=== PATIENT | female | born 1965 | race Hispanic/Latino ===

== ENCOUNTER 2016-12-08 22:50 | Inpatient (IN) | payer MEDICAID ==
[2016-12-08 22:50] VITALS: PULSE 100; BMI 23.8
--- NOTE | 2016-12-08 23:56 | ED PDOC ---
HPI: SOB/CHF/COPD Time Seen by Provider: 12/08/16 23:15 Chief Complaint (Nursing): Back Pain Chief Complaint (Provider): SOB History Per: Patient History/Exam Limitations: no limitations Onset/Duration Of Symptoms: Days Associated Symptoms: Chest Pain, Heart Racing. denies: Fever, Chills, Sweating , Bloody Cough, Productive Cough, Leg/Calf Pain, Ankle/Leg Swelling, Dizziness, Light-headedness, Anxiety, Tingling In Hands Or Face, Musle Spasms In Hands Or Feet Additional Complaint(s): 51yo F in ED with hx of CHF,HT, DVT, bipoloar and is homeless in ED with acute upper back pain noted today while supine and idle-states it causes some difficulty with breathing that's worse than her SOB due to her CHF. admits to nausea without vomiting-now subsided. denies: cough, abd pain, lower back pain, dysuria. - Risk Factors PE Risk Factors: Pos: CHF Past Medical History Reviewed: Historical Data, Nursing Documentation, Vital Signs Vital Signs: Last Vital Signs Temp 96.7 F L 12/08/16 22:55 Pulse 137 H 12/08/16 22:55 Resp 20 12/08/16 22:55 BP 134/81 12/09/16 01:55 Pulse Ox 98 12/09/16 02:18 - Medical History PMH: Anxiety, Bipolar Disorder, CHF, COPD, Depression, Deep Vein Thrombosis, HTN , Hypercholesterolemia, Hyperlipidemia, Hypothyroidism, Migraine, Peripheral Edema Denies: Crohn's Disease, Diabetes, Diverticulitis, Hepatitis, HIV, Chronic Kidney Disease, Seizures, Sexually Transmitted Disease - Surgical History Surgical History: Denies: Appendectomy, Cholecystectomy, Coronary Stent, Pacemaker - Family History Family History: States: Unknown Family Hx - Home Medications Home Medications: Ambulatory Orders Medication Instructions Recorded Digoxin [Lanoxin] 0.125 mg PO 1400 tab 09/07/16 Apixaban [Eliquis] 5 mg PO BID #30 tab 09/30/16 Levothyroxine [Synthroid] 125 mcg PO ACB #30 tab 09/30/16 Losartan [Cozaar] 12.5 mg PO DAILY #30 tab 10/21/16 Potassium Chloride [K-Dur 20 mEq 20 meq PO DAILY #0 tab 10/21/16 ER Tab] Furosemide [Lasix] 80 mg PO DAILY 11/30/16 MetFORMIN [glucoPHAGE] 500 mg PO BID 11/30/16 ALPRAZolam [Xanax] 0.25 mg PO DAILY PRN #30 tab 12/06/16 Acetaminophen/Butalbital/Caf 1 tab PO BID PRN #60 tab 12/06/16 [Fioricet] Apixaban [Eliquis] 5 mg PO BID tab 12/06/16 Atenolol [Tenormin] 12.5 mg PO BID tab 12/06/16 Ciprofloxacin/Dexamethasone 1 drop AU BID bottle 12/06/16 [Ciprodex Otic] Ciprofloxacin/Dexamethasone 75 drop AD BID #150 bottle 12/06/16 [Ciprodex Otic] Digoxin [Lanoxin] 0.125 mg PO 1400 tab 12/06/16 Furosemide [Lasix] 40 mg IVP DAILY vial 12/06/16 Insulin Detemir [Levemir] 10 unit SC BID unit 12/06/16 Levothyroxine [Synthroid] 125 mcg PO ACB tab 12/06/16 Losartan [Cozaar] 12.5 mg PO DAILY tab 12/06/16 Ondansetron [Zofran Inj] 4 mg IVP Q4H PRN vial 12/06/16 Potassium Chloride [K-Dur 20 mEq 20 meq PO DAILY tab 12/06/16 ER Tab] Repaglinide [Prandin] 2 mg PO AC tab 12/06/16 guaiFENesin/Dextromethorphan 5 ml PO Q6H PRN 12/06/16 [Robitussin DM] metFORMIN [glucOPHAGE] 500 mg PO BID tab 12/06/16 risperiDONE [RisperDAL Oral Soln] 1 mg PO HS ml 12/06/16 risperiDONE [RisperDAL] 1 mg PO DAILY #30 ml 12/06/16 - Allergies Allergies/Adverse Reactions: Allergies Allergy/AdvReac Type Severity Reaction Status Date / Time No Known Allergies Allergy Verified 11/30/16 16:29 Curb-65 Severity Score - CURB-65 Severity Score Confusion: No Bun >19mg/dl (>7mmol/L): No Respiratory Rate greater than/equal to 30: No Systolic BP <90 or Diastolic BP less than/equal 60mmHg: No Age >64: No Curb-65 Score: 0 Percentage 30-day mortality: 0.6% Wells Criteria for PE - Wells Criteria for Pulmonary Embolism Clinical Signs and Symptoms of DVT: No P.E is #1 Diagnosis, or Equally Likely: Yes Heart Rate >100: Yes Immobilization at least 3 days;Surgery previous 4 weeks: No Previous, objectively diagnosed PE or DVT: Yes Hemoptysis: No Malignancy w/treatment within 6 months, or palliative: No Total Score: 4.0 Review of Systems ROS Statement: Except As Marked, All Systems Reviewed And Found Negative Constitutional: Negative for: Fever Respiratory: Positive for: Cough Gastrointestinal: Positive for: Nausea. Negative for: Vomiting Physical Exam - Reviewed Nursing Documentation Reviewed: Yes Vital Signs Reviewed: Yes - Physical Exam Appears: Positive for: Non-toxic, No Acute Distress, Uncomfortable Head Exam: Positive for: ATRAUMATIC, NORMAL INSPECTION, NORMOCEPHALIC Skin: Positive for: Normal Color, Warm, DRY ENT: Positive for: Normal ENT Inspection Cardiovascular/Chest: Positive for: Regular Rate, Rhythm Respiratory: Positive for: CNT, Normal Breath Sounds Gastrointestinal/Abdominal: Positive for: Normal Exam Back: Positive for: Normal Inspection. Negative for: L CVA Tenderness, R CVA Tenderness Neurologic/Psych: Positive for: Alert, Oriented - Laboratory Results Result Diagrams: 12/09/16 00:05 12/09/16 00:05 - ECG O2 Sat by Pulse Oximetry: 98 - Progress ED Course And Treament: case discussed with Md reyes will r/o PE with CTA and labs and due to hx of CHF-will give lasix 60mg IV and re-eval. pt placed on O2- SAt %: 90%-93%. CMP:K+ elevated and BS elevated(>400), BNP>4000 increased from last ED visit in October.- pt given fluids IV 125ccper hour 500cc total and insulin 6mg and was given insulin 60mg IV. VBG/ABG ordered-however pt refuses to allow for VBG or ABG. pt provided with the benefits of ABG/VBG-however continues to refuse. IMPRESSION: Pulmonary arteries: There is high suspicion for acute pulmonary embolus to the right lower lobe, best appreciated series 3 image 64, coronal series 601 image 74 and adjacent, noting involvement of multiple segments. Relatively more central involvement of the right lower lobe pulmonary artery is seen series 3 image 54, coronal image 63, and adjacent noting that some portion of this may be chronic rather than acute embolus. Pulmonary emboli as above, noting additionally bilateral pleural effusions and consolidation on the right which may reflect an unrelated process including congestive failure and/ or pneumonia. Large bilateral pleural effusions. Findings in keeping with congestive failure, cannot exclude pneumonia right middle or right lower lobe. Cardiomegaly with no specific findings of acute right heart strain. Very limited evaluation of the abdomen. If there is suspicion for acute abdominal pathology please obtain dedicated CT, the present study is not adequate to exclude free air or other acute pathology in the abdomen. Pt will be admitted for Pulmonary Embolus under [facility]-medical service oncall. Medical Decision Making Medical Decision Making: pt will be admitted to telemetry [facility] for PE, DM. pt stable for admission. Disposition - Clinical Impression Clinical Impression: Pulmonary embolism - Patient ED Disposition Is Patient to be Admitted: Yes - Disposition Disposition Time: 02:17 Condition: STABLE - Pt Status Changed To: Hospital Disposition Of: Inpatient - Admit Certification Admit to Inpatient:: After my assessment, the patient will require hospitalization for at least two midnights. This is because of the severity of symptoms shown, intensity of services needed, and/or the medical risk in this patient being treated as an outpatient.
[2016-12-09 00:11] LABS: BASO # 0.2 K/uL (0.0-0.2); BASO % 1.1 % (0.0-2.0); EOS # 0.1 K/uL (0.0-0.7); EOS % 0.6 % (0.0-4.0); HEMATOCRIT 41.1 % (34.0-47.0); LYMPH # 3.5 K/uL (1.0-4.3); LYMPH % 24.5 % (20.0-40.0); MEAN CELL VOLUME 77.5 fl (81.0-99.0); MEAN CORPUSCULAR HEMOGLOBIN 24.9 pg (27.0-31.0); MEAN CORPUSCULAR HGB CONC 32.1 g/dL (33.0-37.0); MONO # 1.2 K/uL (0.0-0.8); MONO % 8.4 % (0.0-10.0); NEUT # 9.3 K/uL (1.8-7.0); NEUT % 65.4 % (50.0-75.0); RED CELL DISTRIBUTION WIDTH 20.5 % (11.5-14.5); WHITE BLOOD COUNT 14.2 K/uL (4.8-10.8)
[2016-12-09 00:25] LABS: ALB/GLOB RATIO 1.1 (1.0-2.1); ALKALINE PHOSPHATASE 155 U/L (38-126); ALT/SGPT 99 U/L (9-52); AST/SGOT 56 U/L (14-36); BLOOD UREA NITROGEN 18 mg/dl (7-17); CALCIUM 9.8 mg/dL (8.4-10.2); CARBON DIOXIDE 23 mmol/L (22-30); CHLORIDE 96 mmol/L (98-107); GFR AFRICAN-AMERICAN > 60; POTASSIUM 5.5 MMOL/L (3.6-5.0); SODIUM 131 mmol/l (132-148); TOTAL PROTEIN 7.3 G/DL (6.3-8.2)
[2016-12-09] MEDS ORDERED: Sodium Chloride 0.9% 50 ML IV ONE (00:30)
[2016-12-09] MEDS ORDERED: Iodixanol 320 MG/ML 100 ML BOTTLE IV ONE (00:30)
[2016-12-09 00:43] LABS: GLUCOSE,RANDOM 421 mg/dL (65-105)
[2016-12-09] MEDS ORDERED: Insulin Regular 100 units/ml IV STA (00:45)
[2016-12-09] MEDS ORDERED: Sodium Chloride 0.9% 1,000 ML IV STA (00:45)
[2016-12-09] MEDS ORDERED: Insulin Regular 100 units/ml ONE (01:32)
[2016-12-09] MEDS ORDERED: Sodium Chloride 0.9% 500 ML IV STA (01:49)
[2016-12-09] MEDS ORDERED: Sodium Chloride 0.9% 1,000 ML IV SCH (02:00)
[2016-12-09 02:23] LABS: RBC URINE 1 /hpf (0-3); URINE BILIRUBIN NEGATIVE (NEGATIVE); URINE BLOOD NEGATIVE (NEGATIVE); URINE COLOR STRAW (YELLOW); URINE GLUCOSE (UA) >=500 mg/dL (Normal); URINE KETONE NEGATIVE (NEGATIVE); URINE LEUKOCYTE ESTERASE NEG Leu/uL (Negative); URINE PROTEIN NEGATIVE (NEGATIVE); URINE UROBILINOGEN 0.2-1.0 mg/dL (0.2-1.0); WBC URINE 1 /hpf (0-5)
[2016-12-09] MEDS: Insulin Regular 100 units/ml SC SCH ×4 (05:57→22:30)
[2016-12-09] MEDS: Potassium Chloride 20 mEq ER Tab PO SCH ×2 (08:31→16:54)
[2016-12-09 08:42] LABS: BASO # 0.1 K/uL (0.0-0.2); BASO % 0.9 % (0.0-2.0); EOS # 0.1 K/uL (0.0-0.7); EOS % 0.8 % (0.0-4.0); HEMATOCRIT 39.6 % (34.0-47.0); LYMPH # 4.1 K/uL (1.0-4.3); LYMPH % 30.1 % (20.0-40.0); MEAN CELL VOLUME 76.5 fl (81.0-99.0); MEAN CORPUSCULAR HEMOGLOBIN 25.2 pg (27.0-31.0); MEAN CORPUSCULAR HGB CONC 32.9 g/dL (33.0-37.0); MEAN PLATELET VOLUME 8.8 fl (7.2-11.7); MONO # 1.2 K/uL (0.0-0.8); NEUT # 8.1 K/uL (1.8-7.0); NEUT % 59.2 % (50.0-75.0); NRBC % 0.1 % (0.0-0.0); RED CELL DISTRIBUTION WIDTH 20.3 % (11.5-14.5); WHITE BLOOD COUNT 13.7 K/uL (4.8-10.8)
[2016-12-09 08:46] LABS: ALKALINE PHOSPHATASE 133 U/L (38-126); ALT/SGPT 87 U/L (9-52); AST/SGOT 44 U/L (14-36); BILIRUBIN,TOTAL 0.8 mg/dl (0.2-1.3); BLOOD UREA NITROGEN 15 mg/dl (7-17); CALCIUM 9.2 mg/dL (8.4-10.2); CARBON DIOXIDE 25 mmol/L (22-30); CHLORIDE 99 mmol/L (98-107); GFR AFRICAN-AMERICAN > 60; GLUCOSE,RANDOM 281 mg/dL (65-105); POTASSIUM 4.2 MMOL/L (3.6-5.0); SODIUM 134 mmol/l (132-148); TOTAL PROTEIN 6.5 G/DL (6.3-8.2)
[2016-12-09] MEDS: Enoxaparin 80 mg Syringe SC SCH (09:55)
--- NOTE | 2016-12-09 10:01 | CARD ---
APPROVED REPORT EKG Measurement Heart [id number] <Conclusion> Sinus tachycardia Left bundle branch block Abnormal ECG
[2016-12-09] MEDS ORDERED: Metoprolol Succinate 50 mg XL Tab PO SCH (10:45)
[2016-12-09] MEDS ORDERED: Levalbuterol 0.63 MG/3 ML Inhal Soln UD IH ONE (10:48)
[2016-12-09] MEDS ORDERED: Levalbuterol 0.63 MG/3 ML Inhal Soln UD IH SCH (11:00)
--- NOTE | 2016-12-09 12:23 | CT ---
PROCEDURE: CT Chest with contrast (Pulmonary Angiogram) HISTORY: SOB COMPARISON: None available. TECHNIQUE: Axial computed tomography images were obtained of the chest in the pulmonary arterial phase of enhancement. Coronal and sagittal reformatted images were created and reviewed. Exam is limited by motion artifact and areas of atelectasis and infiltrate. Intravenous contrast dose: 99 cc visipaque 320 Radiation dose: Total exam DLP = 363 mGy-cm. This CT exam was performed using one or more of the following dose reduction techniques: Automated exposure control, adjustment of the mA and/or kV according to patient size, and/or use of iterative reconstruction technique. FINDINGS: PULMONARY ARTERIES: There appear to be a few small areas of filling defect in the right lower lobe subsegmental arteries posteriorly at the right lung base. These are probably consistent with small pulmonary emboli. Motion artifact however limits evaluation. There may also be a subtle area of low density filling defect in the proximal right lower lobe pulmonary artery although a portion of this may be related to artifact. This is seen on series 3, image 54. No other filling defect is identified. Main pulmonary outflow track shows no evidence of filling defect. No appreciable filling defect is seen in the right atrium right ventricle. AORTA: No appreciable filling defect. Mild atherosclerotic change and tortuosity. LUNGS: Large right pleural effusion and left pleural effusion are noted with areas of moderate compressive atelectasis at the lung bases. Additional infiltrate at the right lung base could not be excluded. There is also moderate right middle lobe infiltrate and/or atelectasis appreciated. Smaller amount of compressive atelectasis is seen at the left lung base and lingula. No defect within the bronchi are noted to suggest mucous plugging and air bronchograms are seen within the areas of infiltrate and/or atelectasis. PLEURAL SPACES: Moderate effusions as described above. No pneumothorax. HEART: Heart is slightly enlarged. . Vasculature may be mildly congested. LYMPH NODES: Small scattered nonspecific right paratracheal and prevascular lymph nodes are noted. No large hilar lymphadenopathy is clearly seen. Small subcarinal lymph nodes are also identified. Thoracic inlet is unremarkable. No supraclavicular or axillary lymphadenopathy is seen. BONES, CHEST WALL: No fractures. Degenerative changes are seen in the spine. OTHER FINDINGS: Images of the upper abdomen are limited. IMPRESSION: There appear to be small filling defects within the subsegmental right lower lobe pulmonary arteries although a portion of this may be related to artifact. An additional area possible filling defect is seen in the proximal right lower lobe pulmonary artery, although this may be related to volume averaging. Large effusions. Moderate right middle lobe and right lower lobe infiltrates and smaller areas of probable compressive atelectasis in the left lower lobe. Underlying pneumonia is could not be excluded in the right lung. Mild vascular congestion. This agrees with preliminary report provided by the on-call radiologist.
[2016-12-09] MEDS: Levalbuterol 0.63 MG/3 ML Inhal Soln UD IH SCH ×3 (15:46→23:50)
--- NOTE | 2016-12-09 16:18 | US ---
PROCEDURE: Bilateral lower extremity venous duplex Doppler. HISTORY: r/o DVT COMPARISON: None available. TECHNIQUE: Bilateral common femoral, superficial femoral, popliteal and posterior tibial veins were evaluated. Flow was assessed with color Doppler, compressibility, assessment of phasic flow and augmentation response. FINDINGS: COMMON FEMORAL VEIN: Right CFV: Unremarkable. Left CFV: Unremarkable. SUPERFICIAL FEMORAL VEIN: Right SFV: Unremarkable. Left SFV: Unremarkable. POPLITEAL VEIN: Right Popliteal: Unremarkable. Left Popliteal: Unremarkable. POSTERIOR TIBIAL VEIN: Right PTV: Unremarkable. Left PTV: Left posterior tibial vein was not adequately evaluated due to the patient being unable to tolerate the imaging. OTHER FINDINGS: None. IMPRESSION: No evidence of deep vein thrombosis of the visualized vessels. Left calf could not be evaluated.
--- NOTE | 2016-12-09 16:34 | CP.PCM.CON ---
History of Present Illness - History of Present Illness History of Present Illness: Pulmonary consult for a 51 y/o F, admitted to [facility] on 12/08/16 for SOB that begins 2 days [employer] with no relief, associated to cough, non productive, non bloody, Chest pain with rapid HR of 137, swelling b/l L/E, upper back pain described as sharp, moderate to severe intensity 8:10, and also having nausea and vomiting. Aggravated factor: Back pain causing increased SOB. Pt denied: Fever, chills, diarrhea, sweating, lightheadedness, numbness, tingling in hands and face, headache, urinary symptoms, sick contact, recent travel. PMHx: DVT U/E, CHF, HTN, R subclavian DVT , PPM, Coronary stent , Hypercolesterolemia, COPD , Hypothyroidism, Diverticulitis, PNA, Anxiety, Depression, Anxiety, Bipolar Disorder, Migraine , Lymphoma EKG shows: Sinus tachycardia, L bundle branch block. Doppler L/E= No DVT , Pro BNP 3840 CT Chest showed: Possible RLL emboli. Large effusions at Lung bases, R>L. RML and RLL Infiltrates- Atelectasis LLL. Review of Systems - Constitutional Constitutional: Other (negative) - EENT Eyes: Other (negative) Ears: Other (negative) Nose/Mouth/Throat: Other (negative) - Cardiovascular Cardiovascular: Chest Pain, Dyspnea, Leg Edema, Rapid Heart Rate - Respiratory Respiratory: Cough, Dyspnea - Gastrointestinal Gastrointestinal: Nausea, Vomiting - Genitourinary Genitourinary: Other (negative) - Musculoskeletal Musculoskeletal: Back Pain - Integumentary Integumentary: Other (negative) - Neurological Neurological: Other (negative) - Psychiatric Psychiatric: Other (negative) - Endocrine Endocrine: Other (negative) - Hematologic/Lymphatic Hematologic: Other (negative) Past Patient History - Infectious Disease Hx of Infectious Diseases: None - Tetanus Immunizations Tetanus Immunization: Unknown - Past Medical History & Family History Past Medical History?: Yes Pertinent Family History: Unknown - Past Social History Smoking Status: Former Smoker Alcohol: None Drugs: Denies Home Situation {Lives}: With Family - CARDIAC Hx Cardiac Disorders: Yes Hx Congestive Heart Failure: Yes Hx Hypercholesterolemia: Yes Hx Hypertension: Yes - PULMONARY Hx Respiratory Disorders: Yes Hx Chronic Obstructive Pulmonary Disease (COPD): Yes Hx Pneumonia: Yes Hx Pulmonary Embolism: Yes - NEUROLOGICAL Hx Migraine: Yes Hx Seizures: No - HEENT Hx HEENT Problems: No - RENAL Hx Chronic Kidney Disease: No - ENDOCRINE/METABOLIC Hx Endocrine Disorders: Yes Hx Diabetes Mellitus Type 2: Yes Hx Hypothyroidism: Yes - HEMATOLOGICAL/ONCOLOGICAL Hx Human Immunodeficiency Virus (HIV): No - INTEGUMENTARY Hx Dermatological Problems: No Hx Basil Cell: No Hx Eczema: No Hx Melanoma: No Hx Psoriasis: No Hx Squamous Cell: No - MUSCULOSKELETAL/RHEUMATOLOGICAL Hx Falls: No - GASTROINTESTINAL Hx Diverticulitis: Yes - GENITOURINARY/GYNECOLOGICAL Hx Sexually Transmitted Disorders: No - PSYCHIATRIC Hx Psychophysiologic Disorder: Yes Hx Anxiety: Yes Hx Bipolar Disorder: Yes - SURGICAL HISTORY Hx Appendectomy: No Hx Cholecystectomy: No Hx Coronary Stent: No - ANESTHESIA Hx Anesthesia Reactions: No Hx Malignant Hyperthermia: No Meds Allergies/Adverse Reactions: Allergies Allergy/AdvReac Type Severity Reaction Status Date / Time No Known Allergies Allergy Verified 11/30/16 16:29 - Medications Medications: Current Medications Aspirin (Aspirin Chewable) 81 mg PO DAILY [facility] Last Admin: 12/09/16 09:54 Dose: 81 mg Enalapril Maleate (Vasotec) 2.5 mg PO DAILY [facility] Enoxaparin Sodium (Lovenox) 80 mg SC DAILY [facility] PRN Reason: Protocol Last Admin: 12/09/16 09:55 Dose: 80 mg Furosemide (Lasix) 40 mg IV Q12 [facility] Last Admin: 12/09/16 09:54 Dose: 40 mg Insulin Human Regular (Humulin R) 0 units SC Q6 [facility] PRN Reason: Protocol Last Admin: 12/09/16 11:00 Dose: 10 u Levalbuterol HCl (Xopenex) 0.63 mg IH RQ8 [facility] Last Admin: 12/09/16 16:10 Dose: 0.63 mg Metoprolol Tartrate (Lopressor) 25 mg PO Q12 [facility] Last Admin: 12/09/16 11:19 Dose: 25 mg Ondansetron HCl (Zofran Inj) 4 mg IVP Q4 PRN PRN Reason: Nausea/Vomiting Potassium Chloride (K-Dur 20 Meq Er Tab) 20 meq PO BID [facility] Last Admin: 12/09/16 08:31 Dose: Not Given Spironolactone (Aldactone) 12.5 mg PO DAILY [facility] Physical Exam - Constitutional Appears: No Acute Distress - Head Exam Head Exam: NORMAL INSPECTION - Eye Exam Eye Exam: PERRL - ENT Exam ENT Exam: Normal Oropharynx - Neck Exam Neck exam: Positive for: Normal Inspection - Respiratory Exam Respiratory Exam: Decreased Breath Sounds (at bases R>L) Additional comments: Crackles R base. - Cardiovascular Exam Cardiovascular Exam: Tachycardia - GI/Abdominal Exam GI & Abdominal Exam: Normal Bowel Sounds, Soft - Extremities Exam Additional comments: Edema L/E - Back Exam Back exam: NORMAL INSPECTION - Neurological Exam Neurological exam: Alert, Oriented x3 Additional comments: No motor sensory deficit. - Psychiatric Exam Psychiatric exam: Normal Mood - Skin Skin Exam: Warm Results - Vital Signs Recent Vital Signs: Last Vital Signs Temp 98.3 F 12/09/16 11:54 Pulse 122 H 12/09/16 11:54 Resp 18 12/09/16 11:54 BP 107/71 12/09/16 11:54 Pulse Ox 94 L 12/09/16 11:54 reviewed Mario - Labs Result Diagrams: 12/11/16 08:00 12/11/16 08:00 Labs: Laboratory Results - last 24 hr 12/09/16 12/09/16 12/09/16 05:33 08:00 08:18 WBC 13.7 H RBC 5.18 Hgb 13.0 Hct 39.6 MCV 76.5 L MCH 25.2 L MCHC 32.9 L RDW 20.3 H Plt Count 468 H MPV 8.8 Neut % (Auto) 59.2 Lymph % (Auto) 30.1 [place] % (Auto) 9.0 Eos % (Auto) 0.8 Baso % (Auto) 0.9 Neut # 8.1 H Lymph # 4.1 [place] # 1.2 H Eos # 0.1 Baso # 0.1 Sodium 134 Potassium 4.2 Chloride 99 Carbon Dioxide 25 Anion Gap 15 BUN 15 Creatinine 0.4 L Est GFR ( Amer) > 60 Est GFR (Non-Af Amer) > 60 POC Glucose (mg/dL) 351 H Random Glucose 281 H Calcium 9.2 Total Bilirubin 0.8 AST 44 H D ALT 87 H Alkaline Phosphatase 133 H NT-Pro-B Natriuret Pep 3840 H Total Protein 6.5 Albumin 3.3 L Globulin 3.2 Albumin/Globulin Ratio 1.0 12/09/16 12/09/16 11:07 16:25 WBC RBC Hgb Hct MCV MCH MCHC RDW Plt Count MPV Neut % (Auto) Lymph % (Auto) [place] % (Auto) Eos % (Auto) Baso % (Auto) Neut # Lymph # [place] # Eos # Baso # Sodium Potassium Chloride Carbon Dioxide Anion Gap BUN Creatinine Est GFR ( Amer) Est GFR (Non-Af Amer) POC Glucose (mg/dL) 389 H 433 H* Random Glucose Calcium Total Bilirubin AST ALT Alkaline Phosphatase NT-Pro-B Natriuret Pep Total Protein Albumin Globulin Albumin/Globulin Ratio reviewed J.P. - EKG Data EKG comments: reviewed J.P. - Imaging and Cardiology CT scan - chest Status: Report reviewed by me (Maroi) Venous US Status: Report reviewed by me (Mario) Assessment & Plan (1) Respiratory insufficiency Status: Acute Priority: High (2) Bilateral pleural effusion Status: Acute Priority: High Comment: 2nd to CHF (3) Acute exacerbation of congestive heart failure Status: Acute Priority: High (4) Atelectasis of both lungs Status: Acute Priority: High - Assessment and Plan (Free Text) Plan: Continue Lovenox, can not r/o PE. Treatment of CHF by Cardiology, repeat CTA Chest when cardiac failure improved - Date & Time Date: 12/09/16 Time: 13:30
--- NOTE | 2016-12-09 20:00 | CON ---
DATE: 12/09/2016 REASON FOR CONSULTATION: Exacerbation of congestive heart failure. 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 Th e patient presents because of shortness of breath and leg swelling. The patient denies any retroster nal chest pain. The patient underwent cardiac catheterization in 07/2015, and was found to have occl usive coronary artery disease. A venous ultrasound in August of this year revealed occlusive thromb osis of the right brachial vein of indeterminate age. An echocardiographic study performed in [facility] of last year revealed an ejection fraction of 30% with moderate pulmonary hypertension. The patie nt denies any fever or chills. REVIEW OF SYSTEMS: The patient now experiencing nausea and vomiting. MEDICATIONS: Aspirin 81 mg once a day, K-Dur 20 mEq p.o. twice a day, Lasix 40 mg intravenous twice a day, Lopressor 25 mg twice a day, Lovenox 80 mg subcutaneously daily, Xopenex inhaler q.8 hours. PHYSICAL EXAMINATION: GENERAL: The patient is a middle-aged female who does not appear to be in acute distress. VITAL SIGNS: Blood pressure 107/71, heart rate 122, temperature 98.3, respiration 18. HEENT: Normocephalic. NECK: Jugular venous distention is noted. CHEST: Absent breath sounds over both bases. HEART: S1, S2 regular. ABDOMEN: Soft. EXTREMITIES: Has 2-3+ pitting edema. LABORATORY DATA: CBC of 15.7, hemoglobin , hematocrit 39.6, platelet count 468,000. SMA-7 toda y is within normal limits except for glucose 281 and creatinine 0.4. ProBNP is 4600. One set of tro ponin is negative. EKG revealed sinus tachycardia at a rate of 134, left bundle branch block. Chest CT angio impression: Appears to be small filling defect within the subsegmental right lower lo be arteries, although a portion of this may be related to artifact. An additional area of possible f illing defect is seen in the proximal right lower lobe pulmonary artery, although this may be related to volume averaging. Large effusion, moderate right middle lobe and right lower lobe infiltrate and a small area of probable compression atelectasis in the left upper lobe. Underlying pneumonia could not be excluded in the right lung. Mild vascular congestion. ASSESSMENT: 1. Exacerbation of congestive heart failure. 2. Questionable pulmonary embolus. 3. History of neck lymphoma treated 8 years ago. 4. Uncontrolled diabetes mellitus. 5. History of right subclavian occlusive deep venous thrombosis diagnosed in August of this year at [facility]. RECOMMENDATIONS: Continue aspirin 81 mg once a day, intravenous Lasix 40 mg twice a day, Lopressor 2 5 mg twice a day, change Lovenox to a therapeutic regimen. For now, obtain venous Doppler of the low er extremities and start enalapril at 2.5 mg once a day and Aldactone at 12.5 mg daily. Vishal Zavala MD cc: [id number] TT: 12/09/2016 20:00:01 Confirmation # [id number] Dictation # [id number] dn
--- NOTE | 2016-12-09 20:57 | CP.PCM.HP ---
History of Present Illness - History of Present Illness History of Present Illness: This is a 51 yo female admitted through the ER for increasing SOB and palpitations for the past two days. 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 She has a hx of COPD ,CHF DM 2 and DVT of upper extremity and currently on Eliquis [address] scan in Er showed a possible Pulm embolism, CHF and possible infiltrate. She was noted to have a WBC of 14 proBNP of 4000 and Blood sugar of more than 420. She was started on lovenox, lasix and neb tx and Insulin coverage. Present on Admission - Present on Admission Any Indicators Present on Admission: No History of DVT/PE: Yes History of Uncontrolled Diabetes: Yes Urinary Catheter: No Decubitus Ulcer Present: No Review of Systems - Review of Systems Systems not reviewed;Unavailable: Respiratory Distress - Cardiovascular Cardiovascular: Chest Pain, Dyspnea, Palpitations - Respiratory Respiratory: Dyspnea Past Patient History - Infectious Disease Hx of Infectious Diseases: None - Tetanus Immunizations Tetanus Immunization: Unknown - Past Medical History & Family History Past Medical History?: Yes - Past Social History Smoking Status: Former Smoker - CARDIAC Hx Cardiac Disorders: Yes Hx Congestive Heart Failure: Yes Hx Hypercholesterolemia: Yes Hx Hypertension: Yes - PULMONARY Hx Respiratory Disorders: Yes Hx Chronic Obstructive Pulmonary Disease (COPD): Yes Hx Pneumonia: Yes Hx Pulmonary Embolism: Yes - NEUROLOGICAL Hx Migraine: Yes Hx Seizures: No - HEENT Hx HEENT Problems: No - RENAL Hx Chronic Kidney Disease: No - ENDOCRINE/METABOLIC Hx Endocrine Disorders: Yes Hx Diabetes Mellitus Type 2: Yes Hx Hypothyroidism: Yes - HEMATOLOGICAL/ONCOLOGICAL Hx Human Immunodeficiency Virus (HIV): No - INTEGUMENTARY Hx Dermatological Problems: No Hx Basil Cell: No Hx Eczema: No Hx Melanoma: No Hx Psoriasis: No Hx Squamous Cell: No - MUSCULOSKELETAL/RHEUMATOLOGICAL Hx Falls: No - GASTROINTESTINAL Hx Diverticulitis: Yes - GENITOURINARY/GYNECOLOGICAL Hx Sexually Transmitted Disorders: No - PSYCHIATRIC Hx Psychophysiologic Disorder: Yes Hx Anxiety: Yes Hx Bipolar Disorder: Yes - SURGICAL HISTORY Hx Appendectomy: No Hx Cholecystectomy: No Hx Coronary Stent: No - ANESTHESIA Hx Anesthesia Reactions: No Hx Malignant Hyperthermia: No Meds Allergies/Adverse Reactions: Allergies Allergy/AdvReac Type Severity Reaction Status Date / Time No Known Allergies Allergy Verified 11/30/16 16:29 Physical Exam - Head Exam Head Exam: NORMAL INSPECTION - Eye Exam Eye Exam: Normal appearance - ENT Exam ENT Exam: Mucous Membranes Moist - Respiratory Exam Respiratory Exam: Rales, Rhonchi - Cardiovascular Exam Cardiovascular Exam: Tachycardia - GI/Abdominal Exam GI & Abdominal Exam: Normal Bowel Sounds - Back Exam Back exam: NORMAL INSPECTION Results - Vital Signs Recent Vital Signs: Last Vital Signs Temp 97.7 F 12/09/16 20:10 Pulse 116 H 12/09/16 20:47 Resp 20 12/09/16 20:10 BP 116/81 12/09/16 20:47 Pulse Ox 94 L 12/09/16 20:10 - Labs Result Diagrams: 12/09/16 08:18 12/09/16 08:00 Labs: Laboratory Results - last 24 hr 12/09/16 12/09/16 12/09/16 05:33 08:00 08:18 WBC 13.7 H RBC 5.18 Hgb 13.0 Hct 39.6 MCV 76.5 L MCH 25.2 L MCHC 32.9 L RDW 20.3 H Plt Count 468 H MPV 8.8 Neut % (Auto) 59.2 Lymph % (Auto) 30.1 [place] % (Auto) 9.0 Eos % (Auto) 0.8 Baso % (Auto) 0.9 Neut # 8.1 H Lymph # 4.1 [place] # 1.2 H Eos # 0.1 Baso # 0.1 Sodium 134 Potassium 4.2 Chloride 99 Carbon Dioxide 25 Anion Gap 15 BUN 15 Creatinine 0.4 L Est GFR ( Amer) > 60 Est GFR (Non-Af Amer) > 60 POC Glucose (mg/dL) 351 H Random Glucose 281 H Calcium 9.2 Total Bilirubin 0.8 AST 44 H D ALT 87 H Alkaline Phosphatase 133 H NT-Pro-B Natriuret Pep 3840 H Total Protein 6.5 Albumin 3.3 L Globulin 3.2 Albumin/Globulin Ratio 1.0 12/09/16 12/09/16 11:07 16:25 WBC RBC Hgb Hct MCV MCH MCHC RDW Plt Count MPV Neut % (Auto) Lymph % (Auto) [place] % (Auto) Eos % (Auto) Baso % (Auto) Neut # Lymph # [place] # Eos # Baso # Sodium Potassium Chloride Carbon Dioxide Anion Gap BUN Creatinine Est GFR ( Amer) Est GFR (Non-Af Amer) POC Glucose (mg/dL) 389 H 433 H* Random Glucose Calcium Total Bilirubin AST ALT Alkaline Phosphatase NT-Pro-B Natriuret Pep Total Protein Albumin Globulin Albumin/Globulin Ratio Assessment & Plan (1) Pulmonary embolism Status: Acute (2) Acute exacerbation of congestive heart failure Status: Acute (3) Pneumonia Status: Acute (4) Tachycardia Status: Acute (5) Diabetes mellitus type 2 in nonobese Status: Acute (6) COPD (chronic obstructive pulmonary disease) Status: Acute - Assessment and Plan (Free Text) Plan: star Lovenox Iv antibiotcs neb tx accucheck with coverage Lasix oxygen Cardiology eval OPulmonary eval Labetalol Tad inhibitor
[2016-12-09] MEDS ORDERED: Pantoprazole 20 mg EC Tab PO STA (23:05)
[2016-12-10] MEDS: Insulin Regular 100 units/ml SC SCH ×5 (07:01→21:52)
[2016-12-10] MEDS: Levalbuterol 0.63 MG/3 ML Inhal Soln UD IH SCH ×3 (08:19→23:54)
[2016-12-10] MEDS: Pantoprazole 20 mg EC Tab PO SCH (08:44)
[2016-12-10] MEDS: Potassium Chloride 20 mEq ER Tab PO SCH ×2 (08:44→16:49)
[2016-12-10] MEDS: Enoxaparin 80 mg Syringe SC SCH (08:46)
--- NOTE | 2016-12-10 10:36 | CP.PCM.PN ---
Subjective - Date & Time of Evaluation Date of Evaluation: 12/10/16 Time of Evaluation: 10:34 - Subjective Subjective: Patient has no SOB Still with tachycardia HR 120's has no chest pain or SOB. on Lovenox and ASA. Noted infiltrate on CT chest Objective - Vital Signs/Intake and Output Vital Signs (last 24 hours): Temp Pulse Resp BP Pulse Ox 97.5 F L 119 H 20 100/70 95 12/10/16 08:05 12/10/16 08:44 12/10/16 08:05 12/10/16 08:50 12/10/16 08:05 - Medications Medications: Current Medications Aspirin (Aspirin Chewable) 81 mg PO DAILY [facility] Last Admin: 12/10/16 08:44 Dose: 81 mg Enalapril Maleate (Vasotec) 2.5 mg PO DAILY [facility] Last Admin: 12/10/16 08:45 Dose: 2.5 mg Enoxaparin Sodium (Lovenox) 80 mg SC DAILY [facility] PRN Reason: Protocol Last Admin: 12/10/16 08:46 Dose: 80 mg Furosemide (Lasix) 20 mg IVP Q12 [facility] Last Admin: 12/10/16 08:50 Dose: 20 mg Insulin Human Regular (Humulin R) 0 units SC Q6 [facility] PRN Reason: Protocol Last Admin: 12/10/16 07:01 Dose: 6 units Levalbuterol HCl (Xopenex) 0.63 mg IH RQ8 [facility] Last Admin: 12/10/16 08:19 Dose: Not Given Metoprolol Tartrate (Lopressor) 25 mg PO Q12 [facility] Last Admin: 12/10/16 08:44 Dose: 25 mg Ondansetron HCl (Zofran Inj) 4 mg IVP Q4 PRN PRN Reason: Nausea/Vomiting Last Admin: 12/09/16 22:01 Dose: 4 mg Pantoprazole Sodium (Protonix Ec Tab) 20 mg PO DAILY [facility] Last Admin: 12/10/16 08:44 Dose: 20 mg Potassium Chloride (K-Dur 20 Meq Er Tab) 20 meq PO BID [facility] Last Admin: 12/10/16 08:44 Dose: 20 meq Spironolactone (Aldactone) 12.5 mg PO DAILY [facility] Last Admin: 12/10/16 08:46 Dose: 12.5 mg - Labs Labs: 12/09/16 08:18 12/09/16 08:00 - Head Exam Head Exam: NORMAL INSPECTION - Eye Exam Eye Exam: Normal appearance - ENT Exam ENT Exam: Mucous Membranes Moist - Respiratory Exam Respiratory Exam: Decreased Breath Sounds, Rales, NORMAL BREATHING PATTERN - Cardiovascular Exam Cardiovascular Exam: Tachycardia - GI/Abdominal Exam GI & Abdominal Exam: Normal Bowel Sounds - Neurological Exam Neurological Exam: Awake, Oriented x3 Assessment and Plan (1) Pulmonary embolism Status: Acute (2) Acute exacerbation of congestive heart failure Status: Acute (3) Pneumonia Status: Acute (4) Tachycardia Status: Acute (5) Diabetes mellitus type 2 in nonobese Status: Chronic (6) COPD (chronic obstructive pulmonary disease) Status: Acute - Assessment and Plan (Free Text) Plan: Cont meds Cont tx Cont Lovenox start PT. adjust insulin coverage
--- NOTE | 2016-12-10 10:50 | PN ---
DATE: 12/10/2016 The patient denies any chest pain. Shortness of breath has improved. She is experiencing abdominal discomfort and nausea. PHYSICAL EXAMINATION: VITAL SIGNS: Blood pressure 100/70, heart rate 119, temperature 97.5, respirations 20. HEENT: Normocephalic. NECK: No JVD. CHEST: Diminished breath sounds over the bases. HEART: S1, S2 regular. EXTREMITIES: Trace leg edema. Lower extremity ultrasound, no evidence of DVT. Left calf could not be evaluated. ASSESSMENT: 1. Exacerbation of congestive heart failure. 2. Uncontrolled diabetes mellitus. 3. History of neck lymphoma treated 8 years ago. 4. Questionable pulmonary embolus. 5. 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 6. Abdominal pain. RECOMMENDATIONS: Continue Aldactone 12.5 mg once a day, aspirin 81 mg once a day, K-Dur at 20 mEq tw ice a day, Lasix at 20 mg intravenously twice a day, Lopressor 25 mg twice a day, subcutaneous Loveno x at 80 mg once a day, Vasotec at 2.5 mg once a day. Schedule patient for abdominal ultrasound and o btain amylase and lipase levels. Vishal Zavala MD cc: [id number] TT: 12/10/2016 10:49:54 Confirmation # [id number] Dictation # [id number]
[2016-12-10 13:28] LABS: AMYLASE 63 U/L (30-110); LIPASE 72 U/L (23-300)
--- NOTE | 2016-12-10 14:16 | PQF CHF ---
This form is a permanent part of the medical record 12/10/16 Dr. Zavala, Please clarify the TYPE of CHF if known. Documentation of a history of CHF and is admitted with an acute exacerbation of CHF.CT Chest pleural effusions, infiltrates, atelectasis, possible pulmonary embolism. Pro BNP 4600. ECHO from July 2016 with an EF of 30% , pulmonary HTN. Treated with Lasix IV , aldactone, metoprolol, enalapril. Clarification of your documentation is requested to better reflect the severity of illness and intensity of treatment of your patient. Indicators present [x] Acute systolic CHF [x] BNP > 200 [x] Imaging Finding of Pulmonary Edema /Pleural Effusions [] Fluid/Volume Overload [] Pitting edema [x] Ejection Fraction < 40% (Indicative of Systolic Heart Failure) [] Ejection Fraction > 40% (Indicative of Diastolic Heart Failure) [] Dyspnea / Orthopenea / Paroxysmal Nocturnal Dyspnea [] Other: Location in the medical record that reflects the above clinical findings: [] Treatment Provided: [x] PHYSICIAN'S RESPONSE Based on your medical judgment of the clinical indicators outlined above, are you treating this patient for a known or suspected: [] Acute CHF [] Systolic [] Diastolic [] Combined [] Chronic CHF [] Systolic [] Diastolic [] Combined [] Acute on Chronic CHF []Systolic [] Diastolic [] Combined [] CHF due hypertension [] Acute systolic []Chronic systolic [] Acute/ chronic systolic [] Other, please indicate: [] [] If Unable to Determine, please check the box, sign and date. Present On Admission (POA) Indicator: [] Present at the time of admission [] Not present at the time of admission [] Clinically Undetermined In responding to this query, please exercise your independent professional judgment. The fact that a question is asked does not imply that any particular answer is desired or expected. Thank you for your clarification on this documentation. If you have any questions please call:extension [phone] * Thank you, Neha Celeste RN [facility]
[2016-12-10] MEDS: Piperacillin/Tazobact 3.375 GM in Sodium Chloride 0.9% 100 ML IVPB SCH ×2 (16:53→21:54)
--- NOTE | 2016-12-10 22:18 | CP.PCM.PN ---
Subjective - Date & Time of Evaluation Date of Evaluation: 12/10/16 Time of Evaluation: 21:00 - Subjective Subjective: F/U respiratory Insufficiency. Breathing better, chest congestion improved Objective - Vital Signs/Intake and Output Vital Signs (last 24 hours): Temp Pulse Resp BP Pulse Ox 97.2 F L 111 H 20 96/65 L 99 12/10/16 17:14 12/10/16 20:41 12/10/16 17:14 12/10/16 20:41 12/10/16 17:14 - Medications Medications: Current Medications Apixaban (Eliquis) 5 mg PO BID [facility] PRN Reason: Protocol Last Admin: 12/10/16 16:45 Dose: 5 mg Aspirin (Aspirin Chewable) 81 mg PO DAILY [facility] Last Admin: 12/10/16 08:44 Dose: 81 mg Enalapril Maleate (Vasotec) 2.5 mg PO DAILY [facility] Last Admin: 12/10/16 08:45 Dose: 2.5 mg Furosemide (Lasix) 20 mg IVP Q12 [facility] Last Admin: 12/10/16 20:38 Dose: Not Given Vancomycin HCl 1 gm/ Sodium (Chloride) 250 mls @ 166.667 mls/hr IVPB Q12 [facility] Piperacillin Sod/Tazobactam (Sod 3.375 gm/ Sodium Chloride) 100 mls @ 100 mls/ hr IVPB Q6 [facility] Last Admin: 12/10/16 21:54 Dose: 100 mls/hr Insulin Human Regular (Humulin R) 0 units SC ACHS [facility] PRN Reason: Protocol Last Admin: 12/10/16 21:52 Dose: Not Given Levalbuterol HCl (Xopenex) 0.63 mg IH RQ8 [facility] Last Admin: 12/10/16 16:00 Dose: Not Given Metformin HCl (Glucophage) 1,000 mg PO BIDWM [facility] Last Admin: 12/10/16 16:47 Dose: 1,000 mg Metoprolol Tartrate (Lopressor) 50 mg PO Q12 [facility] Last Admin: 12/10/16 20:41 Dose: Not Given Ondansetron HCl (Zofran Inj) 4 mg IVP Q4 PRN PRN Reason: Nausea/Vomiting Last Admin: 12/09/16 22:01 Dose: 4 mg Pantoprazole Sodium (Protonix Ec Tab) 20 mg PO DAILY [facility] Last Admin: 12/10/16 08:44 Dose: 20 mg Potassium Chloride (K-Dur 20 Meq Er Tab) 20 meq PO BID [facility] Last Admin: 12/10/16 16:49 Dose: 20 meq Sitagliptin Phosphate (Januvia) 100 mg PO DAILY [facility] Last Admin: 12/10/16 12:47 Dose: Not Given Spironolactone (Aldactone) 12.5 mg PO DAILY [facility] Last Admin: 12/10/16 08:46 Dose: 12.5 mg - Labs Labs: 12/09/16 08:18 12/09/16 08:00 - Constitutional Appears: No Acute Distress - Head Exam Head Exam: NORMAL INSPECTION - Eye Exam Eye Exam: PERRL - ENT Exam ENT Exam: Normal Oropharynx - Neck Exam Neck Exam: Normal Inspection - Respiratory Exam Respiratory Exam: Decreased Breath Sounds (bases R>L) Additional comments: Crackles at bases - Cardiovascular Exam Cardiovascular Exam: Tachycardia - GI/Abdominal Exam GI & Abdominal Exam: Soft, Normal Bowel Sounds - Extremities Exam Additional comments: Legs edema - Back Exam Back Exam: NORMAL INSPECTION - Neurological Exam Neurological Exam: Alert, Oriented x3. absent: Motor Sensory Deficit - Psychiatric Exam Psychiatric exam: Normal Mood - Skin Skin Exam: Warm Assessment and Plan (1) Respiratory insufficiency Status: Acute (2) Bilateral pleural effusion Status: Acute (3) Acute exacerbation of congestive heart failure Status: Acute (4) Atelectasis of both lungs Status: Acute - Assessment and Plan (Free Text) Assessment: r/o PE Plan: continue Vanco , Zosyn , Xopenex, Lasix Aldactone , Eiquis , f/u repeat Dopler US L/E
[2016-12-11] MEDS: Piperacillin/Tazobact 3.375 GM in Sodium Chloride 0.9% 100 ML IVPB SCH ×4 (04:33→21:14)
[2016-12-11] MEDS: Insulin Regular 100 units/ml SC SCH ×4 (06:49→21:10)
[2016-12-11 08:06] LABS: HEMATOCRIT 36.9 % (34.0-47.0); MEAN CELL VOLUME 78.3 fl (81.0-99.0); MEAN CORPUSCULAR HEMOGLOBIN 24.6 pg (27.0-31.0); MEAN CORPUSCULAR HGB CONC 31.4 g/dL (33.0-37.0); WHITE BLOOD COUNT 13.6 K/uL (4.8-10.8)
[2016-12-11 08:15] LABS: BLOOD UREA NITROGEN 42 mg/dl (7-17); CALCIUM 9.1 mg/dL (8.4-10.2); CARBON DIOXIDE 23 mmol/L (22-30); CHLORIDE 95 mmol/L (98-107); GFR AFRICAN-AMERICAN > 60; GLUCOSE,RANDOM 242 mg/dL (65-105); POTASSIUM 5.1 MMOL/L (3.6-5.0); SODIUM 128 mmol/l (132-148)
[2016-12-11] MEDS: Levalbuterol 0.63 MG/3 ML Inhal Soln UD IH SCH ×2 (08:40→16:30)
[2016-12-11] MEDS: Potassium Chloride 20 mEq ER Tab PO SCH (09:04)
[2016-12-11] MEDS: Pantoprazole 20 mg EC Tab PO SCH (09:08)
--- NOTE | 2016-12-11 11:28 | PN ---
DATE: 12/11/2016 The patient's shortness of breath improved as well as abdominal pain and nausea. PHYSICAL EXAMINATION: VITAL SIGNS: Blood pressure 91/62, heart rate 117, temperature 98.4, respirations 20. HEENT: Normocephalic. NECK: No JVD. CHEST: Minimal basal rhonchi. HEART: S1, S2 regular. EXTREMITIES: No edema. LABORATORIES: Hemoglobin and hematocrit 11.6 and 39.6, white count and platelet count are 15.6 and 4 00. Today's potassium is 5.1, sodium is 128 and glucose 242. Abdominal ultrasound and venous Dopple r of the upper extremities were performed, but the reports are still pending. ASSESSMENT: 1. Acute systolic heart failure which is currently improved. 2. Hyponatremia. 3. History of right arm occlusive deep venous thrombosis. 4. Abdominal pain. Amylase and, lipase levels so far are normal and abdominal ultrasound was perfor med. RECOMMENDATIONS: Continue Eliquis 5 mg twice a day, aspirin 81 mg once a day, Aldactone at 12.5 mg o nce a day. Discontinue IV Lasix as well as K-Dur. Continue Lopressor at 50 mg once a day. Continue IV Zosyn and IV vancomycin. Continue enalapril at 2.5 mg once a day. I will follow venous Doppler of the upper extremity results as well as abdominal ultrasound. The case was discussed with Dr. Rayo leblanc yesterday. Vishal Zavala MD cc: [id number] TT: 12/11/2016 11:27:45 Confirmation # [id number] Dictation # [id number] tn
--- NOTE | 2016-12-11 12:17 | IP.NPCORE ---
Heart Failure Core Measure - Heart Failure Ejection Fraction: Less Than 40 % (patient refusing echocardiogram) Left Ventricular Function to be assessed after discharge: Yes LON Inhibitor Prescribed: Yes Beta-Loraine Prescribed: Metoprolol Succinate Contraindication/Reason for not providing: metoprolol tartrate
--- NOTE | 2016-12-11 12:42 | US ---
HISTORY: Abdominal pain COMPARISON: None. TECHNIQUE: Sonographic evaluation of the abdomen. FINDINGS: LIVER: Measures 15.8 cm. Diffusely increased echogenicity of the liver parenchyma. Consistent with fatty infiltration. Ovoid echogenic mass in the inferior right hepatic lobe, 2.8 x 2.3 x 1.3 cm. Nonspecific. Possible hemangioma. Recommend evaluation with multiphasic contrast enhanced CT, hemangioma protocol. No other hepatic mass. No biliary ductal dilatation. GALLBLADDER: Status post cholecystectomy COMMON BILE DUCT: Measures 2.5 mm. No stones. No dilatation. PANCREAS: Unremarkable as visualized. No mass. No ductal dilatation. RIGHT KIDNEY: Measures 10.1cm. Normal echogenicity. No calculus, mass, or hydronephrosis. LEFT KIDNEY: Measures 10.1cm. Normal echogenicity. No calculus, mass, or hydronephrosis. SPLEEN: Normal in size and contour. No mass. AORTA: No aneurysmal dilatation. IVC: Unremarkable. OTHER FINDINGS: Right pleural effusion IMPRESSION: Fatty liver. 2.8 cm echogenic mass in right hepatic lobe. Recommend evaluation with multiphasic contrast enhanced CT examination, hemangioma protocol. Right pleural effusion.
--- NOTE | 2016-12-11 12:49 | US ---
PROCEDURE: Bilateral duplex Doppler upper extremity venous examination HISTORY: hx of dvt COMPARISON: Not available TECHNIQUE: Examination of the right and left upper extremities was performed. The examination includes evaluation of compressibility where feasible, augmentation and respiratory phasic behavior. The examination includes the internal jugular vein, subclavian, axillary, brachial, basilic, ulnar and radial veins. FINDINGS: There is no intraluminal thrombus seen bilaterally. All veins except for the subclavian demonstrated full compressibility. Normal phasic behavior and augmentation was evident throughout the examined vessels bilaterally. IMPRESSION: No evidence of upper extremity deep venous thrombosis bilaterally.
--- NOTE | 2016-12-11 14:26 | CARD ---
APPROVED REPORT EKG Measurement Heart [id number] <Conclusion> Sinus tachycardia Left bundle branch block Abnormal ECG
--- NOTE | 2016-12-11 14:33 | CP.PCM.PN ---
Subjective - Date & Time of Evaluation Date of Evaluation: 12/11/16 Time of Evaluation: 13:50 - Subjective Subjective: F/U Respiratory Insufficiency N/C, breathing better.. Objective - Vital Signs/Intake and Output Vital Signs (last 24 hours): Temp Pulse Resp BP Pulse Ox 97.7 F 125 H 20 114/70 97 12/11/16 13:00 12/11/16 13:00 12/11/16 13:00 12/11/16 13:00 12/11/16 13:00 - Medications Medications: Current Medications Apixaban (Eliquis) 5 mg PO BID [facility] PRN Reason: Protocol Last Admin: 12/11/16 09:05 Dose: 5 mg Aspirin (Aspirin Chewable) 81 mg PO DAILY [facility] Last Admin: 12/11/16 09:05 Dose: 81 mg Enalapril Maleate (Vasotec) 2.5 mg PO DAILY [facility] Last Admin: 12/11/16 09:14 Dose: Not Given Vancomycin HCl 1 gm/ Sodium (Chloride) 250 mls @ 166.667 mls/hr IVPB Q12 [facility] Last Admin: 12/11/16 09:08 Dose: 166.667 mls/hr Piperacillin Sod/Tazobactam (Sod 3.375 gm/ Sodium Chloride) 100 mls @ 100 mls/ hr IVPB Q6 [facility] Last Admin: 12/11/16 11:34 Dose: 100 mls/hr Insulin Detemir (Levemir) 10 units SC HS [facility] Insulin Human Regular (Humulin R) 0 units SC ACHS [facility] PRN Reason: Protocol Last Admin: 12/11/16 11:36 Dose: 15 units Levalbuterol HCl (Xopenex) 0.63 mg IH RQ8 [facility] Last Admin: 12/11/16 08:40 Dose: Not Given Metformin HCl (Glucophage) 1,000 mg PO BIDWM [facility] Last Admin: 12/11/16 09:04 Dose: 1,000 mg Metoprolol Tartrate (Lopressor) 25 mg PO Q12 [facility] Ondansetron HCl (Zofran Inj) 4 mg IVP Q4 PRN PRN Reason: Nausea/Vomiting Last Admin: 12/09/16 22:01 Dose: 4 mg Pantoprazole Sodium (Protonix Ec Tab) 20 mg PO DAILY [facility] Last Admin: 12/11/16 09:08 Dose: 20 mg Sitagliptin Phosphate (Januvia) 100 mg PO DAILY [facility] Last Admin: 12/11/16 09:06 Dose: 100 mg Spironolactone (Aldactone) 12.5 mg PO DAILY [facility] Last Admin: 12/11/16 09:05 Dose: 12.5 mg - Labs Labs: 12/11/16 08:00 12/11/16 08:00 - Constitutional Appears: No Acute Distress - Head Exam Head Exam: NORMAL INSPECTION - Eye Exam Eye Exam: PERRL - ENT Exam ENT Exam: Normal Oropharynx - Neck Exam Neck Exam: Normal Inspection - Respiratory Exam Respiratory Exam: Decreased Breath Sounds (bases R>L) Additional comments: Less crackles at bases - Cardiovascular Exam Cardiovascular Exam: Tachycardia - GI/Abdominal Exam GI & Abdominal Exam: Soft, Normal Bowel Sounds - Extremities Exam Additional comments: Legs edema - Back Exam Back Exam: NORMAL INSPECTION - Neurological Exam Neurological Exam: Alert, Oriented x3. absent: Motor Sensory Deficit - Psychiatric Exam Psychiatric exam: Normal Mood - Skin Skin Exam: Warm Assessment and Plan (1) Respiratory insufficiency Status: Acute (2) Bilateral pleural effusion Status: Acute (3) Acute exacerbation of congestive heart failure Status: Acute (4) Atelectasis of both lungs Status: Acute - Assessment and Plan (Free Text) Plan: Continue vanco, Xopenex, Eliquis and rest of Tx.
--- NOTE | 2016-12-11 15:05 | RAD ---
HISTORY: pneumonia Go pneumonia. COMPARISON: No prior. TECHNIQUE: PA/lateral. FINDINGS: LUNGS: Bilateral lower lobe infiltrates. Infiltrates involve multiple segments. Right middle lobe and lingula also affected. PLEURA: Large bilateral pleural effusions resulting an compressive atelectasis. CARDIOVASCULAR: Normal. OSSEOUS STRUCTURES: No significant abnormalities. VISUALIZED UPPER ABDOMEN: Normal. OTHER FINDINGS: None. IMPRESSION: Large bilateral pleural effusions. Compressive atelectasis affects the lower lobes, right middle lobe and lingula.
[2016-12-11] MEDS: Insulin Detemir 100 Units/ml Inj SC SCH (21:15)
[2016-12-12] MEDS: Levalbuterol 0.63 MG/3 ML Inhal Soln UD IH SCH ×4 (00:43→23:21)
[2016-12-12] MEDS ORDERED: Alum-Mag Hydrox-Simethicone Susp (30 mL) PO ONE (01:09)
[2016-12-12] MEDS: Piperacillin/Tazobact 3.375 GM in Sodium Chloride 0.9% 100 ML IVPB SCH ×4 (04:34→22:05)
[2016-12-12] MEDS: Insulin Regular 100 units/ml SC SCH ×4 (06:50→22:06)
[2016-12-12] MEDS ORDERED: Dextrose 50% SYRINGE Inj (50 ml) IVP PRN (08:53)
[2016-12-12] MEDS ORDERED: Glucagon Recombinant 1 mg Inj IM PRN (08:53)
--- NOTE | 2016-12-12 08:56 | CP.PCM.PN ---
<Joan Burnham - Last Filed: 12/12/16 08:59> Subjective - Date & Time of Evaluation Date of Evaluation: 12/12/16 Time of Evaluation: 08:54 - Subjective Subjective: evaluated with attending. overnight, pt c/o abd pain and not able to sleep d/t pain. Eating, drinking, making urine, BM today which didn't improve abd pain. Denies fever, chest pain, SOB, diarrhea. Objective - Vital Signs/Intake and Output Vital Signs (last 24 hours): Temp Pulse Resp BP Pulse Ox 97.5 F L 111 H 20 119/70 96 12/12/16 08:23 12/12/16 08:23 12/12/16 08:23 12/12/16 08:23 12/12/16 08:23 - Medications Medications: Current Medications Apixaban (Eliquis) 5 mg PO BID [facility] PRN Reason: Protocol Last Admin: 12/11/16 16:19 Dose: 5 mg Aspirin (Aspirin Chewable) 81 mg PO DAILY [facility] Last Admin: 12/11/16 09:05 Dose: 81 mg Enalapril Maleate (Vasotec) 2.5 mg PO DAILY [facility] Last Admin: 12/11/16 09:14 Dose: Not Given Vancomycin HCl 1 gm/ Sodium (Chloride) 250 mls @ 166.667 mls/hr IVPB Q12 [facility] Last Admin: 12/11/16 22:04 Dose: 166.667 mls/hr Piperacillin Sod/Tazobactam (Sod 3.375 gm/ Sodium Chloride) 100 mls @ 100 mls/ hr IVPB Q6 [facility] Last Admin: 12/12/16 04:34 Dose: Not Given Insulin Detemir (Levemir) 10 units SC HS [facility] Last Admin: 12/11/16 21:15 Dose: 10 units Insulin Human Regular (Humulin R) 0 units SC ACHS [facility] PRN Reason: Protocol Last Admin: 12/12/16 06:50 Dose: 3 units Levalbuterol HCl (Xopenex) 0.63 mg IH RQ8 [facility] Last Admin: 12/12/16 08:26 Dose: Not Given Metformin HCl (Glucophage) 1,000 mg PO BIDWM [facility] Last Admin: 12/11/16 16:20 Dose: 1,000 mg Metoprolol Tartrate (Lopressor) 25 mg PO Q12 [facility] Last Admin: 12/11/16 21:13 Dose: 25 mg Ondansetron HCl (Zofran Inj) 4 mg IVP Q4 PRN PRN Reason: Nausea/Vomiting Last Admin: 12/11/16 23:07 Dose: 4 mg Pantoprazole Sodium (Protonix Ec Tab) 20 mg PO DAILY [facility] Last Admin: 12/11/16 09:08 Dose: 20 mg Sitagliptin Phosphate (Januvia) 100 mg PO DAILY [facility] Last Admin: 12/11/16 09:06 Dose: 100 mg Spironolactone (Aldactone) 12.5 mg PO DAILY [facility] Last Admin: 12/11/16 09:05 Dose: 12.5 mg - Labs Labs: 12/11/16 08:00 12/11/16 08:00 - Constitutional Appears: Non-toxic - Head Exam Head Exam: NORMAL INSPECTION - Eye Exam Eye Exam: Normal appearance - ENT Exam ENT Exam: Mucous Membranes Moist - Neck Exam Neck Exam: Normal Inspection - Respiratory Exam Respiratory Exam: Rales (lower lung base b/l, left mid lobe) - Cardiovascular Exam Cardiovascular Exam: REGULAR RHYTHM - GI/Abdominal Exam GI & Abdominal Exam: Soft, Tenderness. absent: Guarding - Extremities Exam Extremities Exam: Pedal Edema - Back Exam Back Exam: NORMAL INSPECTION - Neurological Exam Neurological Exam: Alert, Normal Gait - Skin Skin Exam: Dry, Warm Assessment and Plan (1) Pneumonia Assessment & Plan: -vanc, zosyn -pulm on board, appreciate input Status: Acute (2) Pulmonary embolism Assessment & Plan: -Eliquis 5mg BID -cardio on board, appreciate input -pulm on board, appreciate input Status: Acute (3) Diabetes mellitus type 2 in nonobese Assessment & Plan: -metformin -januvia -insulin levemir 10u QHS with SSI -accuchecks Status: Chronic (4) Abdominal pain Assessment & Plan: -GI c/s, appreciate input Status: Acute (5) CHF (congestive heart failure) Assessment & Plan: -cardio on board, appreciate input -spironolactone -lopressor -enalapril Status: Chronic (6) Tachycardia Assessment & Plan: -improved -monitor VS Status: Acute (7) DVT prophylaxis Status: Acute <Jovan Claros - Last Filed: 12/12/16 09:36> Objective - Vital Signs/Intake and Output Vital Signs (last 24 hours): Temp Pulse Resp BP Pulse Ox 97.5 F L 111 H 20 119/70 96 12/12/16 08:23 12/12/16 09:01 12/12/16 08:23 12/12/16 09:01 12/12/16 08:23 - Medications Medications: Current Medications Apixaban (Eliquis) 5 mg PO BID [facility] PRN Reason: Protocol Last Admin: 12/12/16 08:59 Dose: 5 mg Aspirin (Aspirin Chewable) 81 mg PO DAILY [facility] Last Admin: 12/12/16 08:59 Dose: 81 mg Dextrose (Dextrose 50% Inj) 0 ml IVP STAT PRN; Protocol PRN Reason: Hypoglycemia Protocol Enalapril Maleate (Vasotec) 2.5 mg PO DAILY [facility] Last Admin: 12/12/16 09:01 Dose: 2.5 mg Furosemide (Lasix) 40 mg PO ONCE ONE Stop: 12/12/16 09:32 Glucagon (Glucagen Diagnostic Kit) 0 mg IM STAT PRN; Protocol PRN Reason: Hypoglycemia Protocol Vancomycin HCl 1 gm/ Sodium (Chloride) 250 mls @ 166.667 mls/hr IVPB Q12 [facility] Last Admin: 12/12/16 08:56 Dose: Not Given Piperacillin Sod/Tazobactam (Sod 3.375 gm/ Sodium Chloride) 100 mls @ 100 mls/ hr IVPB Q6 [facility] Last Admin: 12/12/16 04:34 Dose: Not Given Insulin Detemir (Levemir) 10 units SC HS [facility] Last Admin: 12/11/16 21:15 Dose: 10 units Insulin Human Regular (Humulin R) 0 units SC ACHS [facility] PRN Reason: Protocol Last Admin: 12/12/16 06:50 Dose: 3 units Levalbuterol HCl (Xopenex) 0.63 mg IH RQ8 [facility] Last Admin: 12/12/16 08:26 Dose: Not Given Metformin HCl (Glucophage) 1,000 mg PO BIDWM [facility] Last Admin: 12/12/16 09:01 Dose: Not Given Metoprolol Tartrate (Lopressor) 25 mg PO Q12 [facility] Last Admin: 12/12/16 09:01 Dose: 25 mg Ondansetron HCl (Zofran Inj) 4 mg IVP Q4 PRN PRN Reason: Nausea/Vomiting Last Admin: 12/11/16 23:07 Dose: 4 mg Pantoprazole Sodium (Protonix Ec Tab) 20 mg PO DAILY [facility] Last Admin: 12/12/16 09:00 Dose: 20 mg Sitagliptin Phosphate (Januvia) 100 mg PO DAILY [facility] Last Admin: 12/12/16 09:01 Dose: Not Given Spironolactone (Aldactone) 12.5 mg PO DAILY [facility] Last Admin: 12/12/16 09:00 Dose: 12.5 mg - Labs Labs: 12/11/16 08:00 12/11/16 08:00 Assessment and Plan (1) Pulmonary embolism Status: Acute (2) Acute exacerbation of congestive heart failure Status: Acute (3) Pneumonia Status: Acute (4) Tachycardia Status: Acute (5) Diabetes mellitus type 2 in nonobese Status: Chronic (6) COPD (chronic obstructive pulmonary disease) Status: Acute (7) Gastritis Status: Acute - Assessment and Plan (Free Text) Plan: I was present during evalaution and discussed with Dr Joan brown plans of care will resume low dose Lasix for leg edema
[2016-12-12] MEDS: Pantoprazole 20 mg EC Tab PO SCH (09:00)
--- NOTE | 2016-12-12 09:35 | CP.PCM.PN ---
Subjective - Date & Time of Evaluation Date of Evaluation: 12/11/16 Time of Evaluation: 10:00 - Subjective Subjective: Patient continues to have LUQ pain. No change in stool color. Started on Pantoprazole Has no fever. Has no cough. Noted 2.8 cm mass in the right hepatic lobe by US Objective - Vital Signs/Intake and Output Vital Signs (last 24 hours): Temp Pulse Resp BP Pulse Ox 97.5 F L 111 H 20 119/70 96 12/12/16 08:23 12/12/16 09:01 12/12/16 08:23 12/12/16 09:01 12/12/16 08:23 - Medications Medications: Current Medications Apixaban (Eliquis) 5 mg PO BID [facility] PRN Reason: Protocol Last Admin: 12/12/16 08:59 Dose: 5 mg Aspirin (Aspirin Chewable) 81 mg PO DAILY [facility] Last Admin: 12/12/16 08:59 Dose: 81 mg Dextrose (Dextrose 50% Inj) 0 ml IVP STAT PRN; Protocol PRN Reason: Hypoglycemia Protocol Enalapril Maleate (Vasotec) 2.5 mg PO DAILY [facility] Last Admin: 12/12/16 09:01 Dose: 2.5 mg Furosemide (Lasix) 40 mg PO ONCE ONE Stop: 12/12/16 09:32 Glucagon (Glucagen Diagnostic Kit) 0 mg IM STAT PRN; Protocol PRN Reason: Hypoglycemia Protocol Vancomycin HCl 1 gm/ Sodium (Chloride) 250 mls @ 166.667 mls/hr IVPB Q12 [facility] Last Admin: 12/12/16 08:56 Dose: Not Given Piperacillin Sod/Tazobactam (Sod 3.375 gm/ Sodium Chloride) 100 mls @ 100 mls/ hr IVPB Q6 [facility] Last Admin: 12/12/16 04:34 Dose: Not Given Insulin Detemir (Levemir) 10 units SC HS [facility] Last Admin: 12/11/16 21:15 Dose: 10 units Insulin Human Regular (Humulin R) 0 units SC ACHS [facility] PRN Reason: Protocol Last Admin: 12/12/16 06:50 Dose: 3 units Levalbuterol HCl (Xopenex) 0.63 mg IH RQ8 [facility] Last Admin: 12/12/16 08:26 Dose: Not Given Metformin HCl (Glucophage) 1,000 mg PO BIDWM [facility] Last Admin: 12/12/16 09:01 Dose: Not Given Metoprolol Tartrate (Lopressor) 25 mg PO Q12 [facility] Last Admin: 12/12/16 09:01 Dose: 25 mg Ondansetron HCl (Zofran Inj) 4 mg IVP Q4 PRN PRN Reason: Nausea/Vomiting Last Admin: 12/11/16 23:07 Dose: 4 mg Pantoprazole Sodium (Protonix Ec Tab) 20 mg PO DAILY [facility] Last Admin: 12/12/16 09:00 Dose: 20 mg Sitagliptin Phosphate (Januvia) 100 mg PO DAILY [facility] Last Admin: 12/12/16 09:01 Dose: Not Given Spironolactone (Aldactone) 12.5 mg PO DAILY [facility] Last Admin: 12/12/16 09:00 Dose: 12.5 mg - Labs Labs: 12/11/16 08:00 12/11/16 08:00 - Head Exam Head Exam: NORMAL INSPECTION - Eye Exam Eye Exam: Normal appearance - ENT Exam ENT Exam: Mucous Membranes Moist - Respiratory Exam Respiratory Exam: Decreased Breath Sounds - Cardiovascular Exam Cardiovascular Exam: REGULAR RHYTHM - GI/Abdominal Exam GI & Abdominal Exam: Normal Bowel Sounds - Neurological Exam Neurological Exam: Awake, Oriented x3 Assessment and Plan (1) Pulmonary embolism Status: Acute (2) Acute exacerbation of congestive heart failure Status: Acute (3) Pneumonia Status: Acute (4) Tachycardia Status: Acute (5) Diabetes mellitus type 2 in nonobese Status: Chronic (6) COPD (chronic obstructive pulmonary disease) Status: Acute (7) Gastritis Status: Acute - Assessment and Plan (Free Text) Plan: GI eval contmeds cont antibiotics.
--- NOTE | 2016-12-12 11:24 | PQF PNEUMO ---
This form is a permanent part of the medical record 12/12/16 Dr. Claros, Would you please clarify the TYPE of Pneumonia if known. Please see physician response below. Admitted with increased sob and palpitations. CT chest: showed possible pulmonary embolism, infiltrate and CHF. WBC 14,000, afebrile. Treated with Vancomycin and Zosyn. Clarification of your documentation is requested to better reflect the severity of illness and intensity of treatment of your patient. Indicators present [x] Documented diagnosis of pneumonia [x] X-ray findings: [] Positive Sputum cultures [] Cough w/ fever [] Abnormal lungs sounds [] Poor gag reflex [] Speech consults/swallow evaluation [] Vent dependence [] Other: [] Location in the medical record that reflects the above clinical findings: [] Treatment Provided: [x] Dual IVAB PHYSICIAN'S RESPONSE Based on your medical judgment of the clinical indicators outlined above, are you treating this patient for a known or suspected: [] Aspiration pneumonia [] Ventilator associated pneumonia [] Viral pneumonia [] Bacterial pneumonia Please specify organism: [] [] Other, please indicate [] If Unable to Determine, please check the box, sign and date. Note: CAP, HAP, and HCAP indicate where the pneumonia was acquired, not a specific type. Present On Admission (POA) Indicator: [] Present at the time of admission [] Not present at the time of admission [] Clinically Undetermined In responding to this query, please exercise your independent professional judgment. The fact that a question is asked does not imply that any particular answer is desired or expected. Thank you for your clarification on this documentation. If you have any questions please call:extension [phone] * Thank you, Neha Celeste RN CDMP MTDD
[2016-12-12 11:36] LABS: ALB/GLOB RATIO 1.4 (1.0-2.1); ALKALINE PHOSPHATASE 230 U/L (38-126); ALT/SGPT 174 U/L (9-52); AST/SGOT 188 U/L (14-36); BILIRUBIN,TOTAL 1.4 mg/dl (0.2-1.3); BLOOD UREA NITROGEN 48 mg/dl (7-17); CALCIUM 9.9 mg/dL (8.4-10.2); CARBON DIOXIDE 21 mmol/L (22-30); CHLORIDE 94 mmol/L (98-107); GFR AFRICAN-AMERICAN > 60; GLUCOSE,RANDOM 177 mg/dL (65-105); POTASSIUM 5.4 MMOL/L (3.6-5.0); SODIUM 128 mmol/l (132-148); TOTAL PROTEIN 6.9 G/DL (6.3-8.2)
[2016-12-12 11:46] LABS: PARTIAL THROMBOPLASTIN TIME 27.1 SECONDS (23.3-32.5)
[2016-12-12 12:07] LABS: CARCINOEMBRYONIC ANTIGEN 1.2 ng/mL (0-3.0)
--- NOTE | 2016-12-12 14:26 | CP.PCM.PN ---
Subjective - Date & Time of Evaluation Date of Evaluation: 12/12/16 Time of Evaluation: 10:50 - Subjective Subjective: F/U Respiratory Insufficiency Pt breathing better, abdominal pain epigastric, LUQ. Objective - Vital Signs/Intake and Output Vital Signs (last 24 hours): Temp Pulse Resp BP Pulse Ox 97.6 F 82 18 88/56 L 92 L 12/12/16 12:29 12/12/16 12:29 12/12/16 12:29 12/12/16 12:29 12/12/16 12:29 - Medications Medications: Current Medications Apixaban (Eliquis) 5 mg PO BID [facility] PRN Reason: Protocol Last Admin: 12/12/16 08:59 Dose: 5 mg Aspirin (Aspirin Chewable) 81 mg PO DAILY [facility] Last Admin: 12/12/16 08:59 Dose: 81 mg Dextrose (Dextrose 50% Inj) 0 ml IVP STAT PRN; Protocol PRN Reason: Hypoglycemia Protocol Enalapril Maleate (Vasotec) 2.5 mg PO DAILY [facility] Last Admin: 12/12/16 09:01 Dose: 2.5 mg Glucagon (Glucagen Diagnostic Kit) 0 mg IM STAT PRN; Protocol PRN Reason: Hypoglycemia Protocol Vancomycin HCl 1 gm/ Sodium (Chloride) 250 mls @ 166.667 mls/hr IVPB Q12 [facility] Last Admin: 12/12/16 08:56 Dose: Not Given Piperacillin Sod/Tazobactam (Sod 3.375 gm/ Sodium Chloride) 100 mls @ 100 mls/ hr IVPB Q6 [facility] Last Admin: 12/12/16 10:30 Dose: Not Given Insulin Detemir (Levemir) 10 units SC HS [facility] Last Admin: 12/11/16 21:15 Dose: 10 units Insulin Human Regular (Humulin R) 0 units SC ACHS [facility] PRN Reason: Protocol Last Admin: 12/12/16 12:41 Dose: 3 units Levalbuterol HCl (Xopenex) 0.63 mg IH RQ8 [facility] Last Admin: 12/12/16 08:26 Dose: Not Given Metformin HCl (Glucophage) 1,000 mg PO BIDWM [facility] Last Admin: 12/12/16 09:01 Dose: Not Given Metoprolol Tartrate (Lopressor) 25 mg PO Q12 [facility] Last Admin: 12/12/16 09:01 Dose: 25 mg Ondansetron HCl (Zofran Inj) 4 mg IVP Q4 PRN PRN Reason: Nausea/Vomiting Last Admin: 12/11/16 23:07 Dose: 4 mg Pantoprazole Sodium (Protonix Ec Tab) 20 mg PO DAILY [facility] Last Admin: 12/12/16 09:00 Dose: 20 mg Sitagliptin Phosphate (Januvia) 100 mg PO DAILY [facility] Last Admin: 12/12/16 09:01 Dose: Not Given Spironolactone (Aldactone) 12.5 mg PO DAILY [facility] Last Admin: 12/12/16 09:00 Dose: 12.5 mg Sucralfate (Carafate Oral Susp) 1 gm PO BID [facility] - Labs Labs: 12/11/16 08:00 12/12/16 11:00 PT 13.4 SECONDS (9.6-11.2) H 12/12/16 11:00 INR 1.29 (0.92-1.08) H 12/12/16 11:00 APTT 27.1 SECONDS (23.3-32.5) 12/12/16 11:00 - Constitutional Appears: No Acute Distress - Head Exam Head Exam: NORMAL INSPECTION - Eye Exam Eye Exam: PERRL - ENT Exam ENT Exam: Normal Oropharynx - Neck Exam Neck Exam: Normal Inspection - Respiratory Exam Respiratory Exam: Decreased Breath Sounds (at basesR>L) Additional comments: Less crackles at bases - Cardiovascular Exam Cardiovascular Exam: Tachycardia - GI/Abdominal Exam GI & Abdominal Exam: Soft, Tenderness (epigastric, LUQ ), Normal Bowel Sounds - Extremities Exam Additional comments: Legs edema - Back Exam Back Exam: NORMAL INSPECTION - Neurological Exam Neurological Exam: Alert, Oriented x3. absent: Motor Sensory Deficit - Psychiatric Exam Psychiatric exam: Normal Mood - Skin Skin Exam: Warm Assessment and Plan (1) Respiratory insufficiency Status: Acute (2) Bilateral pleural effusion Status: Acute (3) Acute exacerbation of congestive heart failure Status: Acute (4) Atelectasis of both lungs Status: Acute - Assessment and Plan (Free Text) Plan: Pt breathing better, continue Furosemide and Tx of CHF. Abdominal pain may affect the breathing, workup in progess.
[2016-12-12] MEDS ORDERED: Sodium Chloride 0.9% 0 ML IV ONE (15:23)
[2016-12-12] MEDS ORDERED: Gadodiamide 287 MG/ML VIAL (15ML) IV ONE (15:23)
[2016-12-12] MEDS: Sucralfate 1 gm/10 ml Oral Susp UD PO SCH (16:44)
--- NOTE | 2016-12-12 19:48 | PN ---
DATE: 12/12/2016 SUBJECTIVE: The patient denies any chest pain. Shortness of breath has improved. Abdominal pain puri s improved. PHYSICAL EXAMINATION: VITAL SIGNS: Blood pressure 99/65, heart rate 92, temperature 97.9, respirations 18. HEENT: Normocephalic. NECK: No JVD. CHEST: Clear. HEART: S1, S2 regular. EXTREMITIES: No edema. LABORATORIES: SMA-7: Sodium 128, potassium 5.4, chloride 94, CO2 21, glucose 177, BUN 48, creatinin e 0.8. ASSESSMENT: 1. Exacerbation of congestive heart failure. 2. Dehydration, prerenal azotemia. 3. Hyponatremia. 4. History of neck lymphoma, status post chemotherapy. 5. History of right subclavian deep venous thrombosis. RECOMMENDATIONS: Continue Vasotec 2.5 mg daily. Continue IV vancomycin at 1 gram twice a day, IV Zo syn 3.375 grams intravenous q. 6 hours, Lopressor 25 mg twice a day, Eliquis 5 mg twice a day, aspiri n 81 mg once a day. Discontinue Aldactone. Vishal Zavala MD cc: [id number] TT: 12/12/2016 19:47:20 Confirmation # [id number] Dictation # [id number] irena
[2016-12-12] MEDS: Insulin Detemir 100 Units/ml Inj SC SCH (22:06)
--- NOTE | 2016-12-13 02:42 | CON ---
DATE: 12/12/2016 REASON FOR CONSULTATION: Abdominal pain. This is a 51-year-old female with history of blood clots, for the past couple of days, abdominal pain and discomfort for the past week or so, also some d iarrhea, all this has improved. The patient says she is admitted for looks like fluid overload and h yperglycemia. GI is called for abdominal pain and discomfort. The patient is lying in bed, comforta ble, no apparent distress. PAST MEDICAL HISTORY: As above. SURGICAL HISTORY: As above. MEDICATIONS: Have been reviewed. REVIEW OF SYSTEMS: All the rest of the systems have been reviewed and negative apart in HPI. PHYSICAL EXAMINATION: VITAL SIGNS: Here in the hospital are grossly unremarkable as well. GENERAL: A pleasant, elderly-appearing female lying in bed, comfortable, in no apparent distress. HEAD: Normocephalic, atraumatic. EYES: Pupils equally reactive bilaterally. No conjunctival pallor or icterus. NECK: Supple, normal range of motion. No lymphadenopathy appreciated. LUNGS: Clear to auscultation bilaterally. HEART: S1, S2. Regular rate and rhythm. No murmurs appreciated. ABDOMEN: Soft, nontender, bowel sounds present. No rebound, no guarding. RECTAL: Deferred. EXTREMITIES: Pulses present bilaterally. SKIN: Warm, dry and intact. NEUROLOGIC: Alert and oriented x 3. LABORATORY DATA: Reviewed. Ultrasound shows a 3 x 2 x 1 right hepatic echogenic mass. Hemoglobin 1 1.6, WBC 13.6, platelet count is 400. INR 1.29. Sugars are 263. Total bilirubin 1.4, 188 is her T, ALT 174, alkaline phosphatase 230. ASSESSMENT AND PLAN: This is a 51-year-old female with a liver lesion is more likely secondary to fluid overload and congestive hepatopathy. I would get an MRI with gadolinium this lesion. Further management per primary care team. Thank you for the consult. Femi Gutierrez MD, PhD cc:Jovan Claros MD [id number] TT: 12/12/2016 21:14:28 Confirmation # [id number] Dictation # [id number] ia 12/13/2016 01:41:11
[2016-12-13] MEDS: Piperacillin/Tazobact 3.375 GM in Sodium Chloride 0.9% 100 ML IVPB SCH ×5 (03:18→21:45)
[2016-12-13] MEDS: Insulin Regular 100 units/ml SC SCH ×4 (06:45→22:41)
[2016-12-13 07:38] LABS: BLOOD UREA NITROGEN 48 mg/dl (7-17); CARBON DIOXIDE 24 mmol/L (22-30); CHLORIDE 91 mmol/L (98-107); GFR AFRICAN-AMERICAN > 60; GLUCOSE,RANDOM 124 mg/dL (65-105); HEMATOCRIT 39.9 % (34.0-47.0); MEAN CORPUSCULAR HEMOGLOBIN 25.3 pg (27.0-31.0); MEAN CORPUSCULAR HGB CONC 32.4 g/dL (33.0-37.0); POTASSIUM 4.6 MMOL/L (3.6-5.0); RED CELL DISTRIBUTION WIDTH 20.7 % (11.5-14.5); SODIUM 128 mmol/l (132-148); WHITE BLOOD COUNT 14.8 K/uL (4.8-10.8)
[2016-12-13] MEDS: Levalbuterol 0.63 MG/3 ML Inhal Soln UD IH SCH ×3 (08:09→15:41)
[2016-12-13] MEDS: Sucralfate 1 gm/10 ml Oral Susp UD PO SCH ×2 (08:54→16:20)
[2016-12-13] MEDS: Pantoprazole 20 mg EC Tab PO SCH (08:55)
[2016-12-13] MEDS ORDERED: Iohexol 240 (50 ml) PO ONE (09:01)
--- NOTE | 2016-12-13 10:37 | CP.PCM.PN ---
<Joan Burnham - Last Filed: 12/13/16 10:35> Subjective - Date & Time of Evaluation Date of Evaluation: 12/13/16 Time of Evaluation: 10:35 - Subjective Subjective: evaluated with attending. overnight, no events. Not able to complete MRI d/t anxiety. c/o abd pain. Eating, drinking, making urine and BM. Denies fever, chest pain, SOB, diarrhea. Objective - Vital Signs/Intake and Output Vital Signs (last 24 hours): Temp Pulse Resp BP Pulse Ox 97.4 F L 108 H 20 112/77 94 L 12/13/16 09:12 12/13/16 09:12 12/13/16 09:12 12/13/16 09:12 12/13/16 09:12 - Medications Medications: Current Medications Apixaban (Eliquis) 5 mg PO BID [facility] PRN Reason: Protocol Last Admin: 12/13/16 08:54 Dose: 5 mg Aspirin (Aspirin Chewable) 81 mg PO DAILY [facility] Last Admin: 12/13/16 08:53 Dose: 81 mg Dextrose (Dextrose 50% Inj) 0 ml IVP STAT PRN; Protocol PRN Reason: Hypoglycemia Protocol Enalapril Maleate (Vasotec) 2.5 mg PO DAILY [facility] Last Admin: 12/13/16 08:56 Dose: 2.5 mg Glucagon (Glucagen Diagnostic Kit) 0 mg IM STAT PRN; Protocol PRN Reason: Hypoglycemia Protocol Vancomycin HCl 1 gm/ Sodium (Chloride) 250 mls @ 166.667 mls/hr IVPB Q12 [facility] Last Admin: 12/13/16 08:55 Dose: Not Given Piperacillin Sod/Tazobactam (Sod 3.375 gm/ Sodium Chloride) 100 mls @ 100 mls/ hr IVPB Q6 [facility] Last Admin: 12/13/16 09:06 Dose: Not Given Insulin Detemir (Levemir) 10 units SC HS [facility] Last Admin: 12/12/16 22:06 Dose: 10 units Insulin Human Regular (Humulin R) 0 units SC ACHS [facility] PRN Reason: Protocol Last Admin: 12/13/16 06:45 Dose: Not Given Levalbuterol HCl (Xopenex) 0.63 mg IH RQ8 [facility] Last Admin: 12/13/16 08:09 Dose: Not Given Metformin HCl (Glucophage) 1,000 mg PO BIDWM [facility] Last Admin: 12/13/16 08:54 Dose: Not Given Metoprolol Tartrate (Lopressor) 25 mg PO Q12 [facility] Last Admin: 12/13/16 08:54 Dose: 25 mg Ondansetron HCl (Zofran Inj) 4 mg IVP Q4 PRN PRN Reason: Nausea/Vomiting Last Admin: 12/13/16 09:02 Dose: 4 mg Pantoprazole Sodium (Protonix Ec Tab) 20 mg PO DAILY [facility] Last Admin: 12/13/16 08:55 Dose: 20 mg Sitagliptin Phosphate (Januvia) 100 mg PO DAILY [facility] Last Admin: 12/13/16 08:54 Dose: Not Given Sucralfate (Carafate Oral Susp) 1 gm PO BID [facility] Last Admin: 12/13/16 08:54 Dose: 1 gm - Labs Labs: 12/13/16 06:50 12/13/16 06:50 PT 13.4 SECONDS (9.6-11.2) H 12/12/16 11:00 INR 1.29 (0.92-1.08) H 12/12/16 11:00 APTT 27.1 SECONDS (23.3-32.5) 12/12/16 11:00 - Constitutional Appears: Non-toxic - Head Exam Head Exam: NORMAL INSPECTION - Eye Exam Eye Exam: Normal appearance - ENT Exam ENT Exam: Mucous Membranes Moist - Neck Exam Neck Exam: Normal Inspection - Respiratory Exam Respiratory Exam: Clear to Ausculation Bilateral - Cardiovascular Exam Cardiovascular Exam: REGULAR RHYTHM - GI/Abdominal Exam GI & Abdominal Exam: Soft. absent: Tenderness (LUQ no TTP while auscultating) - Extremities Exam Extremities Exam: Pedal Edema - Back Exam Back Exam: NORMAL INSPECTION - Neurological Exam Neurological Exam: Alert, Oriented x3 - Skin Skin Exam: Dry, Warm Assessment and Plan (1) Pneumonia Assessment & Plan: -CAP -vanc, zosyn -pulm on board, appreciate input Status: Acute (2) Pulmonary embolism Assessment & Plan: -Eliquis 5mg BID -cardio on board, appreciate input -pulm on board, appreciate input Status: Acute (3) Diabetes mellitus type 2 in nonobese Assessment & Plan: -metformin -januvia -insulin levemir 10u QHS with SSI -accuchecks Status: Chronic (4) Abdominal pain Assessment & Plan: -CT abd/liver -sucralfate -GI c/s, appreciate input Status: Acute (5) CHF (congestive heart failure) Assessment & Plan: -cardio on board, appreciate input -spironolactone -lopressor -enalapril Status: Chronic (6) Tachycardia Assessment & Plan: -improved -monitor VS Status: Acute (7) Liver mass, right lobe Assessment & Plan: US abd-incidental finding, 2.8cm echogenic mass -CT liver -GI on board, appreciate input Status: Acute (8) DVT prophylaxis Assessment & Plan: -Eliquis -SCDs Status: Acute <Jovan Claros - Last Filed: 12/17/16 10:40> Objective - Vital Signs/Intake and Output Vital Signs (last 24 hours): Temp Pulse Resp BP Pulse Ox 97.9 F 112 H 18 100/65 98 12/14/16 15:52 12/14/16 15:52 12/14/16 15:52 12/14/16 16:04 12/14/16 15:52 - Labs Labs: 12/13/16 06:50 12/13/16 06:50 PT 13.4 SECONDS (9.6-11.2) H 12/12/16 11:00 INR 1.29 (0.92-1.08) H 12/12/16 11:00 APTT 27.1 SECONDS (23.3-32.5) 12/12/16 11:00 Assessment and Plan (1) Pulmonary embolism Status: Acute (2) Acute exacerbation of congestive heart failure Status: Acute (3) Pneumonia Status: Acute (4) Tachycardia Status: Acute (5) Diabetes mellitus type 2 in nonobese Status: Chronic (6) COPD (chronic obstructive pulmonary disease) Status: Acute (7) Gastritis Status: Acute - Assessment and Plan (Free Text) Plan: I was present during evaluation and examined patient. Discussed with Dr Joan brown plans of care and management. Jovan Claros M.D.
[2016-12-13 11:00] LABS: ALB/GLOB RATIO 1.4 (1.0-2.1); TOTAL PROTEIN 7.2 G/DL (6.3-8.2)
--- NOTE | 2016-12-13 12:01 | PN ---
DATE: 12/13/2016 SUBJECTIVE: The patient is experiencing shortness breath. She is anxious. PHYSICAL EXAMINATION: VITAL SIGNS: Blood pressure 112/77, heart rate 108, temperature 97.4, respirations 20. HEENT: Normocephalic. NECK: No JVD. CHEST: Clear. HEART: S1, S2 regular. EXTREMITIES: No edema. LABORATORIES: Today's hemoglobin and hematocrit are 12.9 and 39.9, white count and platelet count ar e 14.8 and 416. SMA-7: Sodium 128, potassium 4.6, chloride 91, CO2 of 24, glucose 124, BUN 48, crea tinine 1.0. Alkaline phosphatase is elevated at 214. Liver enzymes are elevated. ASSESSMENT: 1. Cardiomyopathy. The patient is currently in compensated heart failure. 2. Right hepatic echogenic liver mass of 2.8 cm and right pleural effusion. 3. History of neck lymphoma 7 years ago. 4. Bipolar disorder. 5. Diabetes mellitus. 6. Prerenal azotemia. RECOMMENDATIONS: Continue current Eliquis at 5 mg twice a day, metformin 1 gram twice a day, Lopress or 25 mg twice a day, vancomycin 1 gram intravenously twice a day, Vasotec at 2.5 mg once a day. The patient is scheduled to undergo a triple-phase liver scan. Vishal Zavala MD cc: [id number] TT: 12/13/2016 12:00:36 Confirmation # [id number] Dictation # [id number] tn
[2016-12-13] MEDS ORDERED: Iohexol 300 100 ML IJ ONE (13:35)
[2016-12-13] MEDS ORDERED: Sodium Chloride 0.9% 100 ML ONE (13:35)
--- NOTE | 2016-12-13 15:27 | CT ---
PROCEDURE: CT Abdomen and Pelvis with and without intravenous contrast HISTORY: mass COMPARISON: Comparison is made to the previous ultrasound of the abdomen dated 12/10/2016 TECHNIQUE: Axial images of the abdomen were obtained in the pre contrast, portal venous and delayed phases of enhancement. Coronal and sagittal reformats were generated. Contrast dose: 95 mL of Omnipaque 300 Radiation dose: Total exam DLP = 1995. 7 mGy-cm. This CT exam was performed using one or more of the following dose reduction techniques: Automated exposure control, adjustment of the mA and/or kV according to patient size, and/or use of iterative reconstruction technique. FINDINGS: LOWER THORAX: Moderate to large bilateral pleural effusion are again seen. Almost complete collapse of the right lower lobe and partial collapse of the left lower lobe are also noted. LIVER: There is reflux of the IV contrast into the IVC and hepatic vein in the arterial phase. Correlate clinically for possible right heart failure. No evidence of discrete enhancing mass lesion in the liver. The liver demonstrate heterogeneous enhancement. The portal vein is patent. GALLBLADDER AND BILE DUCTS: The gallbladder is not visualized. There are surgical clips at the gallbladder fossa. PANCREAS: Unremarkable. No gross lesion or ductal dilatation. SPLEEN: Unremarkable. ADRENALS: Unremarkable. No mass. KIDNEYS AND URETERS: Unremarkable. No hydronephrosis. No solid mass. VASCULATURE: Unremarkable. No aortic aneurysm. BOWEL: Unremarkable. No obstruction. No gross mural thickening. APPENDIX: No evidence of appendicitis PERITONEUM: Small ascites seen in the abdomen and pelvis of uncertain etiology. LYMPH NODES: Unremarkable. No enlarged lymph nodes. BLADDER: Unremarkable. REPRODUCTIVE: Heterogeneous mildly enlarged uterus. BONES: No acute fracture. OTHER FINDINGS: Mild diffuse soft tissue edema. IMPRESSION: Heterogeneous enhancement of the liver without definite evidence of enhancing mass lesion. Moderate bilateral pleural effusion associated with bilateral lower lobes atelectasis. Small ascites in the abdomen and pelvis of uncertain etiology. Mild anasarca.
--- NOTE | 2016-12-13 17:09 | CP.PCM.PN ---
Subjective - Date & Time of Evaluation Date of Evaluation: 12/13/16 Time of Evaluation: 10:40 - Subjective Subjective: F/U Respiratory Insufficiency. Less SOB , less JUDD , Objective - Vital Signs/Intake and Output Vital Signs (last 24 hours): Temp Pulse Resp BP Pulse Ox 97.6 F 102 H 18 102/70 91 L 12/13/16 16:24 12/13/16 16:24 12/13/16 16:24 12/13/16 16:24 12/13/16 16:24 - Medications Medications: Current Medications Apixaban (Eliquis) 5 mg PO BID [facility] PRN Reason: Protocol Last Admin: 12/13/16 16:21 Dose: 5 mg Aspirin (Aspirin Chewable) 81 mg PO DAILY [facility] Last Admin: 12/13/16 08:53 Dose: 81 mg Dextrose (Dextrose 50% Inj) 0 ml IVP STAT PRN; Protocol PRN Reason: Hypoglycemia Protocol Enalapril Maleate (Vasotec) 2.5 mg PO DAILY [facility] Last Admin: 12/13/16 08:56 Dose: 2.5 mg Glucagon (Glucagen Diagnostic Kit) 0 mg IM STAT PRN; Protocol PRN Reason: Hypoglycemia Protocol Vancomycin HCl 1 gm/ Sodium (Chloride) 250 mls @ 166.667 mls/hr IVPB Q12 [facility] Last Admin: 12/13/16 08:55 Dose: Not Given Piperacillin Sod/Tazobactam (Sod 3.375 gm/ Sodium Chloride) 100 mls @ 100 mls/ hr IVPB Q6 [facility] Last Admin: 12/13/16 16:24 Dose: 100 mls/hr Insulin Detemir (Levemir) 10 units SC HS [facility] Last Admin: 12/12/16 22:06 Dose: 10 units Insulin Human Regular (Humulin R) 0 units SC ACHS [facility] PRN Reason: Protocol Last Admin: 12/13/16 16:21 Dose: 6 units Levalbuterol HCl (Xopenex) 0.63 mg IH RQ8 [facility] Last Admin: 12/13/16 15:41 Dose: Not Given Metformin HCl (Glucophage) 1,000 mg PO BIDWM [facility] Last Admin: 12/13/16 16:21 Dose: Not Given Metoprolol Tartrate (Lopressor) 25 mg PO Q12 [facility] Last Admin: 12/13/16 08:54 Dose: 25 mg Ondansetron HCl (Zofran Inj) 4 mg IVP Q4 PRN PRN Reason: Nausea/Vomiting Last Admin: 12/13/16 09:02 Dose: 4 mg Pantoprazole Sodium (Protonix Ec Tab) 20 mg PO DAILY [facility] Last Admin: 12/13/16 08:55 Dose: 20 mg Sitagliptin Phosphate (Januvia) 100 mg PO DAILY [facility] Last Admin: 12/13/16 08:54 Dose: Not Given Sucralfate (Carafate Oral Susp) 1 gm PO BID [facility] Last Admin: 12/13/16 16:20 Dose: 1 gm - Labs Labs: 12/13/16 06:50 12/13/16 06:50 PT 13.4 SECONDS (9.6-11.2) H 12/12/16 11:00 INR 1.29 (0.92-1.08) H 12/12/16 11:00 APTT 27.1 SECONDS (23.3-32.5) 12/12/16 11:00 - Constitutional Appears: No Acute Distress - Head Exam Head Exam: NORMAL INSPECTION - Eye Exam Eye Exam: PERRL - ENT Exam ENT Exam: Normal Oropharynx - Neck Exam Neck Exam: Normal Inspection - Respiratory Exam Respiratory Exam: Decreased Breath Sounds (at bases R>L) Additional comments: Less crackles at bases - Cardiovascular Exam Cardiovascular Exam: Tachycardia - GI/Abdominal Exam GI & Abdominal Exam: Soft, Tenderness (mild epigastric), Normal Bowel Sounds - Extremities Exam Additional comments: Legs edema - Back Exam Back Exam: NORMAL INSPECTION - Neurological Exam Neurological Exam: Alert, Oriented x3. absent: Motor Sensory Deficit - Psychiatric Exam Psychiatric exam: Normal Mood - Skin Skin Exam: Warm Assessment and Plan (1) Respiratory insufficiency Status: Acute (2) Bilateral pleural effusion Status: Acute (3) Acute exacerbation of congestive heart failure Status: Acute (4) Atelectasis of both lungs Status: Acute - Assessment and Plan (Free Text) Assessment: Continue treatment of CHF , respiratory insufficiency 2nd to CHF, B/L Effusions with Lung atelectasis, to have Liver CT
--- NOTE | 2016-12-13 21:25 | CP.PCM.PN ---
Subjective - Date & Time of Evaluation Date of Evaluation: 12/13/16 Time of Evaluation: 11:00 - Subjective Subjective: couldn't tolerate MRI Objective - Vital Signs/Intake and Output Vital Signs (last 24 hours): Temp Pulse Resp BP Pulse Ox 98.2 F 94 H 18 102/57 L 95 12/13/16 20:14 12/13/16 20:14 12/13/16 20:14 12/13/16 20:14 12/13/16 20:14 - Medications Medications: Current Medications Apixaban (Eliquis) 5 mg PO BID [facility] PRN Reason: Protocol Last Admin: 12/13/16 16:21 Dose: 5 mg Aspirin (Aspirin Chewable) 81 mg PO DAILY [facility] Last Admin: 12/13/16 08:53 Dose: 81 mg Dextrose (Dextrose 50% Inj) 0 ml IVP STAT PRN; Protocol PRN Reason: Hypoglycemia Protocol Enalapril Maleate (Vasotec) 2.5 mg PO DAILY [facility] Last Admin: 12/13/16 08:56 Dose: 2.5 mg Glucagon (Glucagen Diagnostic Kit) 0 mg IM STAT PRN; Protocol PRN Reason: Hypoglycemia Protocol Vancomycin HCl 1 gm/ Sodium (Chloride) 250 mls @ 166.667 mls/hr IVPB Q12 [facility] Last Admin: 12/13/16 08:55 Dose: Not Given Piperacillin Sod/Tazobactam (Sod 3.375 gm/ Sodium Chloride) 100 mls @ 100 mls/ hr IVPB Q6 [facility] Last Admin: 12/13/16 16:24 Dose: 100 mls/hr Insulin Detemir (Levemir) 10 units SC HS [facility] Last Admin: 12/12/16 22:06 Dose: 10 units Insulin Human Regular (Humulin R) 0 units SC ACHS [facility] PRN Reason: Protocol Last Admin: 12/13/16 16:21 Dose: 6 units Levalbuterol HCl (Xopenex) 0.63 mg IH RQ8 [facility] Last Admin: 12/13/16 15:41 Dose: Not Given Metformin HCl (Glucophage) 1,000 mg PO BIDWM [facility] Last Admin: 12/13/16 16:21 Dose: Not Given Metoprolol Tartrate (Lopressor) 25 mg PO Q12 [facility] Last Admin: 12/13/16 08:54 Dose: 25 mg Ondansetron HCl (Zofran Inj) 4 mg IVP Q4 PRN PRN Reason: Nausea/Vomiting Last Admin: 12/13/16 09:02 Dose: 4 mg Pantoprazole Sodium (Protonix Ec Tab) 20 mg PO DAILY [facility] Last Admin: 12/13/16 08:55 Dose: 20 mg Sitagliptin Phosphate (Januvia) 100 mg PO DAILY [facility] Last Admin: 12/13/16 08:54 Dose: Not Given Sucralfate (Carafate Oral Susp) 1 gm PO BID [facility] Last Admin: 12/13/16 16:20 Dose: 1 gm - Labs Labs: 12/13/16 06:50 12/13/16 06:50 PT 13.4 SECONDS (9.6-11.2) H 12/12/16 11:00 INR 1.29 (0.92-1.08) H 12/12/16 11:00 APTT 27.1 SECONDS (23.3-32.5) 12/12/16 11:00 - GI/Abdominal Exam GI & Abdominal Exam: Soft, Normal Bowel Sounds Assessment and Plan - Assessment and Plan (Free Text) Assessment: 51 yo female with SOB and liver lesion on sonogram triple phase CT pending pulm input appreciated
[2016-12-13] MEDS: Insulin Detemir 100 Units/ml Inj SC SCH (22:41)
[2016-12-14] MEDS: Piperacillin/Tazobact 3.375 GM in Sodium Chloride 0.9% 100 ML IVPB SCH ×3 (05:05→16:08)
[2016-12-14] MEDS: Insulin Regular 100 units/ml SC SCH ×3 (07:02→16:07)
[2016-12-14] MEDS: Sucralfate 1 gm/10 ml Oral Susp UD PO SCH ×3 (08:38→16:07)
[2016-12-14] MEDS: Pantoprazole 20 mg EC Tab PO SCH (08:39)
--- NOTE | 2016-12-14 11:40 | PN ---
DATE: 12/14/2016 The patient is still experiencing abdominal pain and nausea and worsening of her leg swelling. PHYSICAL EXAMINATION: VITAL SIGNS: Blood pressure 102/72, heart rate 120, temperature 98.4, respirations 16. HEENT: Normocephalic. NECK: No JVD. CHEST: Diminished breath sounds over the bases. HEART: S1, S2 regular. EXTREMITIES: 2+ pitting edema. LABORATORIES: Today's blood sugar 166. Liver CT scan: Heterogenous enhancement of the liver without definite evidence of enhancing mass les ion. Moderate bilateral pleural effusion associated with bilateral lower lobe atelectasis. Small as cites in the abdomen and pelvis of uncertain etiology. ASSESSMENT: 1. Cardiomyopathy. 2. Heterogenous appearance of the liver on liver CT scan, no definite enhancing mass lesion. 3. Rule out lower extremity deep venous thrombosis. 4. Prerenal azotemia. 5. Paroxysmal atrial fibrillation. RECOMMENDATIONS: Most of oral medications are on hold because of the patient's nausea and vomiting. I will administer Lasix 40 mg intravenously twice a day and repeat venous Doppler of the lower extre mities. The case was discussed with the primary physician, Dr. Claros. Vishal Zavala MD cc: [id number] TT: 12/14/2016 11:39:52 Confirmation # [id number] Dictation # [id number]
[2016-12-14 12:15] VITALS: RESP 18
--- NOTE | 2016-12-14 14:41 | CP.PCM.DIS ---
<Joan Burnham - Last Filed: 12/14/16 14:26> Provider - Provider Date of Admission: 12/09/16 02:27 Attending physician: Jovan Claros MD Time Spent in preparation of Discharge (in minutes): 20 Diagnosis - Discharge Diagnosis (1) Pneumonia Status: Acute (2) Pulmonary embolism Status: Acute (3) Diabetes mellitus type 2 in nonobese Status: Chronic (4) Abdominal pain Status: Acute (5) CHF (congestive heart failure) Status: Chronic (6) Tachycardia Status: Acute (7) Liver mass, right lobe Status: Ruled-out (8) DVT prophylaxis Status: Acute Hospital Course - Lab Results Lab Results: Most Recent Lab Values WBC 14.8 K/uL (4.8-10.8) H 12/13/16 06:50 RBC 5.12 Mil/uL (3.80-5.20) 12/13/16 06:50 Hgb 12.9 g/dL (12.0-16.0) 12/13/16 06:50 Hct 39.9 % (34.0-47.0) 12/13/16 06:50 MCV 78.0 fl (81.0-99.0) L 12/13/16 06:50 MCH 25.3 pg (27.0-31.0) L 12/13/16 06:50 MCHC 32.4 g/dL (33.0-37.0) L 12/13/16 06:50 RDW 20.7 % (11.5-14.5) H 12/13/16 06:50 Plt Count 416 K/uL (130-400) H 12/13/16 06:50 MPV 8.8 fl (7.2-11.7) 12/09/16 08:18 Neut % (Auto) 59.2 % (50.0-75.0) 12/09/16 08:18 Lymph % (Auto) 30.1 % (20.0-40.0) 12/09/16 08:18 [place] % (Auto) 9.0 % (0.0-10.0) 12/09/16 08:18 Eos % (Auto) 0.8 % (0.0-4.0) 12/09/16 08:18 Baso % (Auto) 0.9 % (0.0-2.0) 12/09/16 08:18 Neut # 8.1 K/uL (1.8-7.0) H 12/09/16 08:18 Lymph # 4.1 K/uL (1.0-4.3) 12/09/16 08:18 [place] # 1.2 K/uL (0.0-0.8) H 12/09/16 08:18 Eos # 0.1 K/uL (0.0-0.7) 12/09/16 08:18 Baso # 0.1 K/uL (0.0-0.2) 12/09/16 08:18 PT 13.4 SECONDS (9.6-11.2) H 12/12/16 11:00 INR 1.29 (0.92-1.08) H 12/12/16 11:00 APTT 27.1 SECONDS (23.3-32.5) 12/12/16 11:00 Sodium 128 mmol/l (132-148) L 12/13/16 06:50 Potassium 4.6 MMOL/L (3.6-5.0) 12/13/16 06:50 Chloride 91 mmol/L (98-107) L 12/13/16 06:50 Carbon Dioxide 24 mmol/L (22-30) 12/13/16 06:50 Anion Gap 18 (10-20) 12/13/16 06:50 BUN 48 mg/dl (7-17) H 12/13/16 06:50 Creatinine 1.0 mg/dL (0.7-1.2) 12/13/16 06:50 Est GFR ( Amer) > 60 12/13/16 06:50 Est GFR (Non-Af Amer) 58 12/13/16 06:50 POC Glucose (mg/dL) 265 mg/dL (65-110) H 12/14/16 11:19 Random Glucose 124 mg/dL (65-105) H 12/13/16 06:50 Calcium 10.0 mg/dL (8.4-10.2) 12/13/16 06:50 Total Bilirubin 1.0 mg/dl (0.2-1.3) 12/13/16 10:47 Direct Bilirubin 0.5 mg/ml (0.0-0.4) H 12/13/16 10:47 AST 182 U/L (14-36) H 12/13/16 10:47 ALT 214 U/L (9-52) H D 12/13/16 10:47 Alkaline Phosphatase 234 U/L (38-126) H 12/13/16 10:47 Troponin I 0.0130 ng/mL (0.00-0.120) 12/09/16 00:05 NT-Pro-B Natriuret Pep 8400 pg/ml (0-900) H 12/10/16 13:00 Total Protein 7.2 G/DL (6.3-8.2) 12/13/16 10:47 Albumin 4.2 g/dL (3.5-5.0) 12/13/16 10:47 Globulin 3.1 gm/dL (2.2-3.9) 12/13/16 10:47 Albumin/Globulin Ratio 1.4 (1.0-2.1) 12/13/16 10:47 Amylase 63 U/L (30-110) 12/10/16 13:00 Lipase 72 U/L (23-300) 12/10/16 13:00 Alpha Fetoprotein 2.1 IU/mL (0.0-7.22) 12/12/16 11:00 Carcinoembryonic Ag 1.2 ng/mL (0-3.0) 12/12/16 11:00 Urine Color Straw (YELLOW) 12/09/16 02:17 Urine Clarity Clear (Clear) 12/09/16 02:17 Urine pH 6.0 (5.0-8.0) 12/09/16 02:17 Ur Specific [place] 1.039 (1.003-1.030) H 12/09/16 02:17 Urine Protein Negative mg/dL (NEGATIVE) 12/09/16 02:17 Urine Glucose (UA) >=500 mg/dL (Normal) 12/09/16 02:17 Urine Ketones Negative mg/dL (NEGATIVE) 12/09/16 02:17 Urine Blood Negative (NEGATIVE) 12/09/16 02:17 Urine Nitrate Negative (NEGATIVE) 12/09/16 02:17 Urine Bilirubin Negative (NEGATIVE) 12/09/16 02:17 Urine Urobilinogen 0.2-1.0 mg/dL (0.2-1.0) 12/09/16 02:17 Ur Leukocyte Esterase Neg Kristin/uL (Negative) 12/09/16 02:17 Urine RBC (Auto) 1 /hpf (0-3) 12/09/16 02:17 Urine Microscopic WBC 1 /hpf (0-5) 12/09/16 02:17 Ur Squamous Epith Cells 3 /hpf (0-5) 12/09/16 02:17 Digoxin < 0.4 ng/mL (0.8-2.0) L 12/09/16 00:05 - Hospital Course Hospital Course: 51yo F with PMHx bipolar, COPD, CHF, DM 2 and DVT upper extremity (Eliquis) admitted for SOB and palpitations. IV lasix for CHF and Cardio Dr. Huertas c/s for optimization of CHF meds. duplex upper ext negative for DVT. duplex lower ext negative for DVT, though left calf could not be evaluated. Pt refused repeat duplex lower ext per Cardio recommendations d/t b/l LE swelling. CTA which showed PE unlikely and Pulm Dr. Woo c/s with Vancomycin/Zosyn for community aquired pneumonia coverage. US abdomen showed an incidental finding of 2.8cm echogenic mass, CT liver showed no mass in the liver, and GI Dr. Berger c/s. Pt not able to tolerate CT abd/pelvis, started on sucralfate and protonix. Pt respiratory insufficiency improved and pt stable at time of d/c , continue IV abx while in TCU. Discharge Exam - Head Exam Head Exam: NORMAL INSPECTION Discharge Plan - Discharge Medications Prescriptions: Piperacillin/Tazobact [Zosyn 3 Gm-0.375 Gm] 3.375 gm IV Q6 #15 vial Vancomycin 1 GM [Vancomycin 1GM in Normal Saline Addvantage] 1 gm IVPB Q12 #20 bag - Follow Up Plan Condition: STABLE Disposition: TRANSF TO SNF Additional Instructions: discussed with Dr Franco and I personally examined patient. stable for transfer to TCU. jovan Claros M.D. <Jovan Claros - Last Filed: 12/17/16 10:41> Provider - Provider Date of Admission: 12/09/16 02:27 Attending physician: Jovan Claros MD Diagnosis - Discharge Diagnosis (1) Pulmonary embolism Status: Acute (2) Acute exacerbation of congestive heart failure Status: Acute Priority: High (3) Pneumonia Status: Acute (4) Tachycardia Status: Acute (5) Diabetes mellitus type 2 in nonobese Status: Chronic (6) COPD (chronic obstructive pulmonary disease) Status: Acute (7) Gastritis Status: Acute Hospital Course - Lab Results Lab Results: Most Recent Lab Values WBC 14.8 K/uL (4.8-10.8) H 12/13/16 06:50 RBC 5.12 Mil/uL (3.80-5.20) 12/13/16 06:50 Hgb 12.9 g/dL (12.0-16.0) 12/13/16 06:50 Hct 39.9 % (34.0-47.0) 12/13/16 06:50 MCV 78.0 fl (81.0-99.0) L 12/13/16 06:50 MCH 25.3 pg (27.0-31.0) L 12/13/16 06:50 MCHC 32.4 g/dL (33.0-37.0) L 12/13/16 06:50 RDW 20.7 % (11.5-14.5) H 12/13/16 06:50 Plt Count 416 K/uL (130-400) H 12/13/16 06:50 MPV 8.8 fl (7.2-11.7) 12/09/16 08:18 Neut % (Auto) 59.2 % (50.0-75.0) 12/09/16 08:18 Lymph % (Auto) 30.1 % (20.0-40.0) 12/09/16 08:18 [place] % (Auto) 9.0 % (0.0-10.0) 12/09/16 08:18 Eos % (Auto) 0.8 % (0.0-4.0) 12/09/16 08:18 Baso % (Auto) 0.9 % (0.0-2.0) 12/09/16 08:18 Neut # 8.1 K/uL (1.8-7.0) H 12/09/16 08:18 Lymph # 4.1 K/uL (1.0-4.3) 12/09/16 08:18 [place] # 1.2 K/uL (0.0-0.8) H 12/09/16 08:18 Eos # 0.1 K/uL (0.0-0.7) 12/09/16 08:18 Baso # 0.1 K/uL (0.0-0.2) 12/09/16 08:18 PT 13.4 SECONDS (9.6-11.2) H 12/12/16 11:00 INR 1.29 (0.92-1.08) H 12/12/16 11:00 APTT 27.1 SECONDS (23.3-32.5) 12/12/16 11:00 Sodium 128 mmol/l (132-148) L 12/13/16 06:50 Potassium 4.6 MMOL/L (3.6-5.0) 12/13/16 06:50 Chloride 91 mmol/L (98-107) L 12/13/16 06:50 Carbon Dioxide 24 mmol/L (22-30) 12/13/16 06:50 Anion Gap 18 (10-20) 12/13/16 06:50 BUN 48 mg/dl (7-17) H 12/13/16 06:50 Creatinine 1.0 mg/dL (0.7-1.2) 12/13/16 06:50 Est GFR ( Amer) > 60 12/13/16 06:50 Est GFR (Non-Af Amer) 58 12/13/16 06:50 POC Glucose (mg/dL) 261 mg/dL (65-110) H 12/14/16 16:05 Random Glucose 124 mg/dL (65-105) H 12/13/16 06:50 Calcium 10.0 mg/dL (8.4-10.2) 12/13/16 06:50 Total Bilirubin 1.0 mg/dl (0.2-1.3) 12/13/16 10:47 Direct Bilirubin 0.5 mg/ml (0.0-0.4) H 12/13/16 10:47 AST 182 U/L (14-36) H 12/13/16 10:47 ALT 214 U/L (9-52) H D 12/13/16 10:47 Alkaline Phosphatase 234 U/L (38-126) H 12/13/16 10:47 Troponin I 0.0130 ng/mL (0.00-0.120) 12/09/16 00:05 NT-Pro-B Natriuret Pep 8400 pg/ml (0-900) H 12/10/16 13:00 Total Protein 7.2 G/DL (6.3-8.2) 12/13/16 10:47 Albumin 4.2 g/dL (3.5-5.0) 12/13/16 10:47 Globulin 3.1 gm/dL (2.2-3.9) 12/13/16 10:47 Albumin/Globulin Ratio 1.4 (1.0-2.1) 12/13/16 10:47 Amylase 63 U/L (30-110) 12/10/16 13:00 Lipase 72 U/L (23-300) 12/10/16 13:00 Alpha Fetoprotein 2.1 IU/mL (0.0-7.22) 12/12/16 11:00 Carcinoembryonic Ag 1.2 ng/mL (0-3.0) 12/12/16 11:00 Urine Color Straw (YELLOW) 12/09/16 02:17 Urine Clarity Clear (Clear) 12/09/16 02:17 Urine pH 6.0 (5.0-8.0) 12/09/16 02:17 Ur Specific [place] 1.039 (1.003-1.030) H 12/09/16 02:17 Urine Protein Negative mg/dL (NEGATIVE) 12/09/16 02:17 Urine Glucose (UA) >=500 mg/dL (Normal) 12/09/16 02:17 Urine Ketones Negative mg/dL (NEGATIVE) 12/09/16 02:17 Urine Blood Negative (NEGATIVE) 12/09/16 02:17 Urine Nitrate Negative (NEGATIVE) 12/09/16 02:17 Urine Bilirubin Negative (NEGATIVE) 12/09/16 02:17 Urine Urobilinogen 0.2-1.0 mg/dL (0.2-1.0) 12/09/16 02:17 Ur Leukocyte Esterase Neg Kristin/uL (Negative) 12/09/16 02:17 Urine RBC (Auto) 1 /hpf (0-3) 12/09/16 02:17 Urine Microscopic WBC 1 /hpf (0-5) 12/09/16 02:17 Ur Squamous Epith Cells 3 /hpf (0-5) 12/09/16 02:17 Digoxin < 0.4 ng/mL (0.8-2.0) L 12/09/16 00:05 Hepatitis A IgM Ab Negative (NEGATIVE) 12/14/16 Unknown Hep Bs Antigen Negative (NEGATIVE) 12/14/16 Unknown Hep B Core IgM Ab Negative (NEGATIVE) 12/14/16 Unknown Hepatitis C Antibody Negative (NEGATIVE) 12/14/16 Unknown
--- NOTE | 2016-12-14 14:50 | CP.PCM.PN ---
Subjective - Date & Time of Evaluation Date of Evaluation: 12/14/16 Time of Evaluation: 13:40 - Subjective Subjective: F/U Respiratory Insufficiency. No SOB now, minimal JUDD, c/o of epigastric pain. Objective - Vital Signs/Intake and Output Vital Signs (last 24 hours): Temp Pulse Resp BP Pulse Ox 97.8 F 103 H 18 88/76 L 99 12/14/16 12:15 12/14/16 12:15 12/14/16 12:15 12/14/16 12:15 12/14/16 12:15 - Medications Medications: Current Medications Apixaban (Eliquis) 5 mg PO BID [facility] PRN Reason: Protocol Last Admin: 12/14/16 10:03 Dose: Not Given Aspirin (Aspirin Chewable) 81 mg PO DAILY [facility] Last Admin: 12/14/16 10:01 Dose: Not Given Dextrose (Dextrose 50% Inj) 0 ml IVP STAT PRN; Protocol PRN Reason: Hypoglycemia Protocol Enalapril Maleate (Vasotec) 2.5 mg PO DAILY [facility] Last Admin: 12/14/16 10:02 Dose: Not Given Furosemide (Lasix) 40 mg IV BID [facility] Last Admin: 12/14/16 12:00 Dose: Not Given Glucagon (Glucagen Diagnostic Kit) 0 mg IM STAT PRN; Protocol PRN Reason: Hypoglycemia Protocol Vancomycin HCl 1 gm/ Sodium (Chloride) 250 mls @ 166.667 mls/hr IVPB Q12 [facility] Last Admin: 12/14/16 08:43 Dose: Not Given Piperacillin Sod/Tazobactam (Sod 3.375 gm/ Sodium Chloride) 100 mls @ 100 mls/ hr IVPB Q6 [facility] Last Admin: 12/14/16 10:03 Dose: 100 mls/hr Insulin Detemir (Levemir) 10 units SC HS [facility] Last Admin: 12/13/16 22:41 Dose: 10 units Insulin Human Regular (Humulin R) 0 units SC ACHS [facility] PRN Reason: Protocol Last Admin: 12/14/16 11:56 Dose: 6 units Levalbuterol HCl (Xopenex) 0.63 mg IH RQ8 [facility] Last Admin: 12/13/16 15:41 Dose: Not Given Metformin HCl (Glucophage) 1,000 mg PO BIDWM [facility] Last Admin: 12/14/16 10:03 Dose: Not Given Metoprolol Tartrate (Lopressor) 25 mg PO Q12 [facility] Last Admin: 12/14/16 08:39 Dose: Not Given Ondansetron HCl (Zofran Inj) 4 mg IVP Q4 PRN PRN Reason: Nausea/Vomiting Last Admin: 12/14/16 09:31 Dose: 4 mg Pantoprazole Sodium (Protonix Ec Tab) 20 mg PO DAILY [facility] Last Admin: 12/14/16 08:39 Dose: 20 mg Risperidone (Risperdal Oral Soln) 1 mg PO DAILY [facility] Last Admin: 12/14/16 10:52 Dose: Not Given Sitagliptin Phosphate (Januvia) 100 mg PO DAILY [facility] Last Admin: 12/14/16 10:03 Dose: Not Given Sucralfate (Carafate Oral Susp) 1 gm PO BID [facility] Last Admin: 12/14/16 10:02 Dose: Not Given - Labs Labs: 12/13/16 06:50 12/13/16 06:50 PT 13.4 SECONDS (9.6-11.2) H 12/12/16 11:00 INR 1.29 (0.92-1.08) H 12/12/16 11:00 APTT 27.1 SECONDS (23.3-32.5) 12/12/16 11:00 - Constitutional Appears: No Acute Distress - Head Exam Head Exam: NORMAL INSPECTION - Eye Exam Eye Exam: PERRL - ENT Exam ENT Exam: Normal Oropharynx - Neck Exam Neck Exam: Normal Inspection - Respiratory Exam Respiratory Exam: Decreased Breath Sounds (at bases) Additional comments: Less crackles at bases - Cardiovascular Exam Cardiovascular Exam: Tachycardia - GI/Abdominal Exam GI & Abdominal Exam: Soft, Tenderness (mild epigastric tenderness ), Normal Bowel Sounds - Extremities Exam Additional comments: Legs edema - Back Exam Back Exam: NORMAL INSPECTION - Neurological Exam Neurological Exam: Alert, Oriented x3. absent: Motor Sensory Deficit - Psychiatric Exam Psychiatric exam: Normal Mood - Skin Skin Exam: Warm Assessment and Plan (1) Respiratory insufficiency Status: Acute (2) Bilateral pleural effusion Status: Acute (3) Acute exacerbation of congestive heart failure Status: Acute (4) Atelectasis of both lungs Status: Acute - Assessment and Plan (Free Text) Plan: Cardiology f/u increased Lasix to 40 bid, continue Treatment for CHF, at times Lasix on hold due to low BP.
[2016-12-14] MEDS: Levalbuterol 0.63 MG/3 ML Inhal Soln UD IH SCH (15:28)
[2016-12-14 15:52] VITALS: BP 100/65; PULSE 112; TEMP 97.9; O2SAT 98
== END 2016-12-14 19:05 | DRG 541 ==
LOC: H.ER 22:50 → H.ERHOLD 12-09 02:27 → H.TEL 12-09 04:00
PROVIDERS: ADMIT Family Medicine; ATTEND Family Medicine
PROC: 3E0F73Z Introduction of Anti-inflammatory into Respiratory Tract, Via Natural or Artificial Opening (ICD-10-PCS; principal; 2016-12-09)
DX: I26.99 Other pulmonary embolism without acute cor pulmonale (principal); J18.8 Other pneumonia, unspecified organism; E11.65 Type 2 diabetes mellitus with hyperglycemia; I48.0 Paroxysmal atrial fibrillation; J98.11 Atelectasis; E03.9 Hypothyroidism, unspecified; I25.10 Atherosclerotic heart disease of native coronary artery without angina pectoris; Z79.01 Long term (current) use of anticoagulants; Z87.891 Personal history of nicotine dependence; Z95.5 Presence of coronary angioplasty implant and graft

== ENCOUNTER 2016-12-14 13:30 | Inpatient (IN) | payer MEDICAID ==
[2016-12-14 19:34] VITALS: BMI 27.1
[2016-12-14] MEDS ORDERED: guaiFENesin DM 100 mg-10 mg/5 ml UD PO PRN (20:25)
[2016-12-14] MEDS ORDERED: Patient's Own Med (Vancomycin 1 Gm [Vancomycin 1gm In Normal Saline Addvantage] 1 GM) IVPB SCH (21:00)
[2016-12-14] MEDS ORDERED: Piperacillin/Tazobact 3.375 GM in Sodium Chloride 0.9% 100 ML IVPB SCH (21:15)
[2016-12-14] MEDS ORDERED: Piperacillin/Tazobact 3.375 gm Inj IVPB SCH (22:00)
[2016-12-14] MEDS: Insulin Detemir 100 Units/ml Inj SC SCH (23:08)
[2016-12-15] MEDS: Levalbuterol 0.63 MG/3 ML Inhal Soln UD IH SCH ×4 (00:28→23:56)
[2016-12-15] MEDS: Piperacillin/Tazobact 3.375 GM in Sodium Chloride 0.9% 100 ML IVPB SCH ×4 (00:29→18:05)
[2016-12-15] MEDS: Levothyroxine 125 MCG TAB PO SCH (06:33)
[2016-12-15] MEDS: Insulin Regular 100 units/ml SC SCH ×4 (07:01→22:29)
[2016-12-15 08:17] LABS: HEMATOCRIT 37.5 % (34.0-47.0); MEAN CELL VOLUME 77.3 fl (81.0-99.0); MEAN CORPUSCULAR HEMOGLOBIN 25.3 pg (27.0-31.0); MEAN CORPUSCULAR HGB CONC 32.7 g/dL (33.0-37.0); RED CELL DISTRIBUTION WIDTH 21.5 % (11.5-14.5); WHITE BLOOD COUNT 14.6 K/uL (4.8-10.8)
[2016-12-15 08:37] LABS: BLOOD UREA NITROGEN 39 mg/dl (7-17); CALCIUM 8.9 mg/dL (8.4-10.2); CARBON DIOXIDE 24 mmol/L (22-30); CHLORIDE 88 mmol/L (98-107); GFR AFRICAN-AMERICAN > 60; SODIUM 123 mmol/l (132-148)
[2016-12-15 08:45] LABS: GLUCOSE,RANDOM 261 mg/dL (65-105); POTASSIUM 5.3 MMOL/L (3.6-5.0)
[2016-12-15] MEDS ORDERED: Patient's Own Med (Insulin Detemir [Levemir] 10 UNIT) SC SCH (09:00)
[2016-12-15] MEDS: Potassium Chloride 20 mEq ER Tab PO SCH (09:14)
[2016-12-15] MEDS: Pantoprazole 20 mg EC Tab PO SCH (09:15)
[2016-12-15] MEDS: Sucralfate 1 gm/10 ml Oral Susp UD PO SCH ×2 (09:16→16:18)
[2016-12-15 16:09] VITALS: RESP 20
[2016-12-15] MEDS: Alum-Mag Hydrox-Simethicone Susp (30 mL) PO PRN ×2 (16:24→22:33)
[2016-12-15] MEDS: Insulin Detemir 100 Units/ml Inj SC SCH (22:30)
[2016-12-16] MEDS: Piperacillin/Tazobact 3.375 GM in Sodium Chloride 0.9% 100 ML IVPB SCH ×5 (00:08→17:46)
[2016-12-16] MEDS: Levothyroxine 125 MCG TAB PO SCH (06:47)
[2016-12-16] MEDS: Insulin Regular 100 units/ml SC SCH ×4 (06:50→21:14)
[2016-12-16] MEDS: Levalbuterol 0.63 MG/3 ML Inhal Soln UD IH SCH ×3 (07:42→15:34)
[2016-12-16] MEDS: Sucralfate 1 gm/10 ml Oral Susp UD PO SCH ×2 (09:04→16:24)
[2016-12-16] MEDS: Pantoprazole 20 mg EC Tab PO SCH (09:05)
[2016-12-16] MEDS: Potassium Chloride 20 mEq ER Tab PO SCH (09:09)
--- NOTE | 2016-12-16 10:38 | CP.PCM.CON ---
History of Present Illness - History of Present Illness History of Present Illness: PODIATRY CONSULT NOTE. 51 year old female seen at bedside with concerns of pain elongated toenail and extensive lower leg edema. Pt was awake and resting upon arrival. Pt reports painful swelling to her legs bilaterally when standing for a prolonged period of time, patient grades pain at its peak a 2/10. Pt reports redness to her legs has resolved. Pt sees Dr. 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 Pt admits to to intermittent shortness of breath due to her COPD when exacerbated. Pt denies recent f.c.cp.n.v Past Patient History - Infectious Disease Hx of Infectious Diseases: None - Tetanus Immunizations Tetanus Immunization: Unknown - Past Medical History & Family History Past Medical History?: Yes - Past Social History Smoking Status: Former Smoker - CARDIAC Hx Cardiac Disorders: Yes Hx Congestive Heart Failure: Yes Hx Hypercholesterolemia: Yes Hx Hypertension: Yes - PULMONARY Hx Respiratory Disorders: Yes Hx Chronic Obstructive Pulmonary Disease (COPD): Yes Hx Pneumonia: Yes Hx Pulmonary Embolism: Yes - NEUROLOGICAL Hx Migraine: Yes Hx Seizures: No - HEENT Hx HEENT Problems: No - RENAL Hx Chronic Kidney Disease: No - ENDOCRINE/METABOLIC Hx Endocrine Disorders: Yes Hx Diabetes Mellitus Type 2: Yes Hx Hypothyroidism: Yes - HEMATOLOGICAL/ONCOLOGICAL Hx AIDS: No Hx Human Immunodeficiency Virus (HIV): No - INTEGUMENTARY Hx Dermatological Problems: No Hx Basil Cell: No Hx Eczema: No Hx Melanoma: No Hx Psoriasis: No Hx Squamous Cell: No - MUSCULOSKELETAL/RHEUMATOLOGICAL Hx Falls: No - GASTROINTESTINAL Hx Diverticulitis: Yes - GENITOURINARY/GYNECOLOGICAL Hx Sexually Transmitted Disorders: No - PSYCHIATRIC Hx Psychophysiologic Disorder: Yes Hx Anxiety: Yes Hx Bipolar Disorder: Yes - SURGICAL HISTORY Hx Appendectomy: No Hx Cholecystectomy: Yes Hx Coronary Stent: No - ANESTHESIA Hx Anesthesia: Yes Hx Anesthesia Reactions: No Hx Malignant Hyperthermia: No Meds Allergies/Adverse Reactions: Allergies Allergy/AdvReac Type Severity Reaction Status Date / Time No Known Allergies Allergy Verified 11/30/16 16:29 - Medications Medications: Current Medications Al Hydrox/Mg Hydrox/Simethicone (Maalox Plus 30 Ml) 30 ml PO BID PRN PRN Reason: Indigestion / Heartburn Last Admin: 12/15/16 22:33 Dose: 30 ml Alprazolam (Xanax) 0.25 mg PO Q12 PRN PRN Reason: Anxiety Stop: 12/22/16 09:48 Last Admin: 12/15/16 12:22 Dose: 0.25 mg Apixaban (Eliquis) 5 mg PO BID [facility] PRN Reason: Protocol Last Admin: 12/16/16 09:09 Dose: 5 mg Aspirin (Aspirin Chewable) 81 mg PO DAILY [facility] Last Admin: 12/16/16 09:04 Dose: 81 mg Enalapril Maleate (Vasotec) 2.5 mg PO DAILY [facility] Last Admin: 12/15/16 08:45 Dose: Not Given Furosemide (Lasix) 40 mg PO DAILY [facility] Last Admin: 12/16/16 09:11 Dose: 40 mg Guaifenesin/Dextromethorphan (Robitussin Dm) 5 ml PO Q6H PRN PRN Reason: Cough Vancomycin HCl 1 gm/ Sodium (Chloride) 250 mls @ 125 mls/hr IVPB Q12H [facility] Last Admin: 12/15/16 22:37 Dose: 125 mls/hr Piperacillin Sod/Tazobactam (Sod 3.375 gm/ Sodium Chloride) 100 mls @ 100 mls/ hr IVPB 0000,0600,1200,1800 [facility] Last Admin: 12/16/16 05:39 Dose: 100 mls/hr Insulin Detemir (Levemir) 10 units SC HS [facility] Last Admin: 12/15/16 22:30 Dose: 10 units Insulin Human Regular (Humulin R) 0 units SC ACHS [facility] PRN Reason: Protocol Last Admin: 12/16/16 06:50 Dose: 4 units Levalbuterol HCl (Xopenex) 0.63 mg IH RQ8 [facility] Last Admin: 12/16/16 08:04 Dose: 0.63 mg Levothyroxine Sodium (Synthroid) 125 mcg PO ACB [facility] Last Admin: 12/16/16 06:47 Dose: 125 mcg Metformin HCl (Glucophage) 1,000 mg PO BIDWM [facility] Last Admin: 12/16/16 09:20 Dose: Not Given Metoprolol Tartrate (Lopressor) 25 mg PO Q12 [facility] Last Admin: 12/16/16 10:37 Dose: 25 mg Ondansetron HCl (Zofran Inj) 4 mg IVP Q4 PRN PRN Reason: Nausea/Vomiting Pantoprazole Sodium (Protonix Ec Tab) 20 mg PO DAILY [facility] Last Admin: 12/16/16 09:05 Dose: 20 mg Potassium Chloride (K-Dur 20 Meq Er Tab) 20 meq PO DAILY [facility] Last Admin: 12/16/16 09:09 Dose: Not Given Risperidone (Risperdal Oral Soln) 1 mg PO DAILY [facility] Last Admin: 12/16/16 09:05 Dose: 1 mg Sitagliptin Phosphate (Januvia) 100 mg PO DAILY [facility] Last Admin: 12/16/16 09:21 Dose: Not Given Sucralfate (Carafate Oral Susp) 1 gm PO BID [facility] Last Admin: 12/16/16 09:04 Dose: 1 gm Physical Exam - Constitutional Appears: Well, Non-toxic, No Acute Distress - Extremities Exam Additional comments: Lower extremity focused. VASC: DP and PT pulses are fully palpable bilaterally, graded 1/4 secondary to edema. +2 edema noted to extending from thigh to level of metatarsal parabola. bilaterally. No rubor on dependency. Increased swelling noted on dependency. Temperature runs warm to cool, within normal limits. Negative calf tenderness upon compression bilaterally. DERM: Elongated, brittle, yellowed, right hallux nail noted with sub-ungual debris, with medial nail margin incurvated. All other nails are elongated,but normotrophic. No inter-digital macerations noted. No wounds or hyperpigmention noted. Neuro: Protective sensation grossly intact. MUSCK: No tenderness upon palpation. Limb lenght dicrepancy noted, right leg 1.5 cm shorter than contralateral limb. Pt reports too much instablity to perform full biomechanical exam with gait analysis. Pedal muscle strength in all 4 major pedal muscle groups is graded 5/5. - Neurological Exam Neurological exam: Alert, Oriented x3 - Psychiatric Exam Psychiatric exam: Normal Affect, Normal Mood Results - Vital Signs Recent Vital Signs: Last Vital Signs Temp 97.9 F 12/16/16 08:09 Pulse 98 H 12/16/16 10:37 Resp 20 12/16/16 08:09 BP 148/68 12/16/16 10:37 Pulse Ox 100 12/16/16 08:09 - Labs Result Diagrams: 12/15/16 06:00 12/15/16 06:00 Labs: Laboratory Results - last 24 hr 0512/15/16 12/15/16 10:35 15:56 20:12 POC Glucose (mg/dL) 341 H 416 H* 336 H 12/16/16 05:45 POC Glucose (mg/dL) 282 H Assessment & Plan - Assessment and Plan (Free Text) Assessment: 51 year old female with significant Venous insufficiency, and isolated onychomycosis of right hallux. Plan: Pt evalauted and treated. Discussed with attending Dr. aZvala. Chart, labs, and vitals reviewed. -Aseptic nail debridement performed, without incident, using nail nipper down to hygienic nail length. -Lower leg LON-compressive dressing applied for use to bilateral lower extremity to relive leg swelling. For use prn. If patient cannot tolerate can be removed. To be applied during day and to be removed at night. Nursing order placed. Pt stable from podiatric standpoint. Upon Discharge to [id number] with outpatient Rig Hand Dr. Ogden in [place]. Podiatry signing off. Re-consult as needed. Thank you for allowing podiatry service to partake in the care of this patient. - Date & Time Date: 12/16/16 Time: 10:44
[2016-12-16] MEDS: Insulin Detemir 100 Units/ml Inj SC SCH (21:05)
[2016-12-16] MEDS: Alum-Mag Hydrox-Simethicone Susp (30 mL) PO PRN (22:32)
[2016-12-16] MEDS ORDERED: Simethicone 40 mg/0.6 ml Liquid (30 ml) PO PRN (23:33)
[2016-12-17] MEDS: Simethicone 80 mg Chewtab PO PRN ×2 (00:29→09:23)
[2016-12-17] MEDS: Levalbuterol 0.63 MG/3 ML Inhal Soln UD IH SCH ×3 (00:30→16:10)
[2016-12-17] MEDS: Piperacillin/Tazobact 3.375 GM in Sodium Chloride 0.9% 100 ML IVPB SCH ×2 (00:39→05:45)
[2016-12-17] MEDS: Alum-Mag Hydrox-Simethicone Susp (30 mL) PO PRN ×2 (04:45→09:21)
[2016-12-17] MEDS: Levothyroxine 125 MCG TAB PO SCH (06:30)
[2016-12-17] MEDS: Insulin Regular 100 units/ml SC SCH ×4 (06:49→22:17)
[2016-12-17] MEDS: Sucralfate 1 gm/10 ml Oral Susp UD PO SCH ×2 (09:20→16:55)
[2016-12-17] MEDS: Potassium Chloride 20 mEq ER Tab PO SCH (09:21)
[2016-12-17] MEDS: Pantoprazole 20 mg EC Tab PO SCH (09:24)
--- NOTE | 2016-12-17 10:47 | CP.PCM.HP ---
History of Present Illness - History of Present Illness History of Present Illness: This is a 51 y/o female admitted fro further Phy therapy and rehab. She has been homeless recently and was admitted to telemetry due to SOB and chest pain. Noted to be in CHF exacerbation, leg edema and was in respiratory insufficiency. She was given Lasix and was seen by Dr Irby and Dr Woo. She responded very well to treatment. She also complains of recurrent LUQ pain. She was started on antacid and carafet and Dr Gutierrez evaluated her. She was started on phys therapy and advised further PT in the subacute rehab. Last CXR on 12/11/16 showed bilateral effusion. Present on Admission - Present on Admission Any Indicators Present on Admission: No History of DVT/PE: No History of Uncontrolled Diabetes: No Urinary Catheter: No Decubitus Ulcer Present: No Review of Systems - Respiratory Respiratory: Cough - Gastrointestinal Gastrointestinal: Abdominal Pain - Musculoskeletal Additional comments: leg edema bilateral pitting Past Patient History - Infectious Disease Hx of Infectious Diseases: None - Tetanus Immunizations Tetanus Immunization: Unknown - Past Medical History & Family History Past Medical History?: Yes - Past Social History Smoking Status: Former Smoker - CARDIAC Hx Cardiac Disorders: Yes Hx Congestive Heart Failure: Yes Hx Hypercholesterolemia: Yes Hx Hypertension: Yes - PULMONARY Hx Respiratory Disorders: Yes Hx Chronic Obstructive Pulmonary Disease (COPD): Yes Hx Pneumonia: Yes Hx Pulmonary Embolism: Yes - NEUROLOGICAL Hx Migraine: Yes Hx Seizures: No - HEENT Hx HEENT Problems: No - RENAL Hx Chronic Kidney Disease: No - ENDOCRINE/METABOLIC Hx Endocrine Disorders: Yes Hx Diabetes Mellitus Type 2: Yes Hx Hypothyroidism: Yes - HEMATOLOGICAL/ONCOLOGICAL Hx AIDS: No Hx Human Immunodeficiency Virus (HIV): No - INTEGUMENTARY Hx Dermatological Problems: No Hx Basil Cell: No Hx Eczema: No Hx Melanoma: No Hx Psoriasis: No Hx Squamous Cell: No - MUSCULOSKELETAL/RHEUMATOLOGICAL Hx Falls: No - GASTROINTESTINAL Hx Diverticulitis: Yes - GENITOURINARY/GYNECOLOGICAL Hx Sexually Transmitted Disorders: No - PSYCHIATRIC Hx Psychophysiologic Disorder: Yes Hx Anxiety: Yes Hx Bipolar Disorder: Yes - SURGICAL HISTORY Hx Appendectomy: No Hx Cholecystectomy: Yes Hx Coronary Stent: No - ANESTHESIA Hx Anesthesia: Yes Hx Anesthesia Reactions: No Hx Malignant Hyperthermia: No Meds Allergies/Adverse Reactions: Allergies Allergy/AdvReac Type Severity Reaction Status Date / Time No Known Allergies Allergy Verified 11/30/16 16:29 Physical Exam - Head Exam Head Exam: NORMAL INSPECTION - Eye Exam Eye Exam: Normal appearance - ENT Exam ENT Exam: Mucous Membranes Moist - Respiratory Exam Respiratory Exam: Decreased Breath Sounds - Cardiovascular Exam Cardiovascular Exam: REGULAR RHYTHM - GI/Abdominal Exam GI & Abdominal Exam: Normal Bowel Sounds, Tenderness - Neurological Exam Neurological exam: CN II-XII Intact, Oriented x3 - Psychiatric Exam Psychiatric exam: Anxious Results - Vital Signs Recent Vital Signs: Last Vital Signs Temp 97.2 F L 12/17/16 07:57 Pulse 96 H 12/17/16 07:57 Resp 20 12/17/16 07:57 BP 96/68 L 12/17/16 07:57 Pulse Ox 86 L 12/17/16 07:57 - Labs Result Diagrams: 12/15/16 06:00 12/15/16 06:00 Labs: Laboratory Results - last 24 hr 12/16/16 12/16/16 12/16/16 10:44 14:33 16:15 POC Glucose (mg/dL) 408 H* 446 H* 415 H* 12/16/16 12/17/16 19:51 05:33 POC Glucose (mg/dL) 239 H 242 H Assessment & Plan (1) Physical debility Status: Acute (2) Cardiomyopathy Status: Acute (3) Bilateral pleural effusion Status: Acute Priority: High (4) COPD (chronic obstructive pulmonary disease) Status: Acute (5) Leg edema Status: Acute (6) CHF (congestive heart failure) Status: Chronic (7) Gastritis Status: Acute - Assessment and Plan (Free Text) Plan: contmeds diuretic conty PT follow up consult with cardiology and pulmonary cont meds antacid.
--- NOTE | 2016-12-17 10:54 | CP.PCM.PN ---
Subjective - Date & Time of Evaluation Date of Evaluation: 12/15/16 Time of Evaluation: 09:30 - Subjective Subjective: Patient remains stable Continues to have leg edema No SOB Still with a lot of epigastric pains. Objective - Vital Signs/Intake and Output Vital Signs (last 24 hours): Temp Pulse Resp BP Pulse Ox 97.2 F L 96 H 20 96/68 L 86 L 12/17/16 07:57 12/17/16 07:57 12/17/16 07:57 12/17/16 07:57 12/17/16 07:57 - Medications Medications: Current Medications Al Hydrox/Mg Hydrox/Simethicone (Maalox Plus 30 Ml) 30 ml PO Q6 PRN PRN Reason: Indigestion / Heartburn Last Admin: 12/17/16 09:21 Dose: 30 ml Alprazolam (Xanax) 0.25 mg PO Q12 PRN PRN Reason: Anxiety Stop: 12/22/16 09:48 Last Admin: 12/17/16 00:29 Dose: 0.25 mg Apixaban (Eliquis) 5 mg PO BID [facility] PRN Reason: Protocol Last Admin: 12/17/16 10:27 Dose: Not Given Aspirin (Aspirin Chewable) 81 mg PO DAILY [facility] Last Admin: 12/17/16 10:27 Dose: Not Given Enalapril Maleate (Vasotec) 2.5 mg PO DAILY [facility] Last Admin: 12/17/16 10:29 Dose: Not Given Furosemide (Lasix) 40 mg PO DAILY [facility] Last Admin: 12/17/16 10:28 Dose: Not Given Guaifenesin/Dextromethorphan (Robitussin Dm) 5 ml PO Q6H PRN PRN Reason: Cough Vancomycin HCl 1 gm/ Sodium (Chloride) 250 mls @ 125 mls/hr IVPB Q12H [facility] Last Admin: 12/17/16 10:29 Dose: Not Given Piperacillin Sod/Tazobactam (Sod 3.375 gm/ Sodium Chloride) 100 mls @ 100 mls/ hr IVPB 0000,0600,1200,1800 [facility] Last Admin: 12/17/16 05:45 Dose: Not Given Insulin Detemir (Levemir) 10 units SC HS [facility] Last Admin: 12/16/16 21:05 Dose: 10 units Insulin Human Regular (Humulin R) 0 units SC ACHS [facility] PRN Reason: Protocol Last Admin: 12/17/16 06:49 Dose: 3 units Levalbuterol HCl (Xopenex) 0.63 mg IH RQ8 [facility] Last Admin: 12/17/16 07:43 Dose: Not Given Levothyroxine Sodium (Synthroid) 125 mcg PO ACB [facility] Last Admin: 12/17/16 06:30 Dose: 125 mcg Metformin HCl (Glucophage) 1,000 mg PO BIDWM [facility] Last Admin: 12/17/16 10:27 Dose: Not Given Metoprolol Tartrate (Lopressor) 25 mg PO Q12 [facility] Last Admin: 12/17/16 10:28 Dose: Not Given Ondansetron HCl (Zofran Inj) 4 mg IVP Q4 PRN PRN Reason: Nausea/Vomiting Pantoprazole Sodium (Protonix Ec Tab) 20 mg PO DAILY [facility] Last Admin: 12/17/16 09:24 Dose: 20 mg Potassium Chloride (K-Dur 20 Meq Er Tab) 20 meq PO DAILY [facility] Last Admin: 12/17/16 09:21 Dose: Not Given Risperidone (Risperdal Oral Soln) 1 mg PO DAILY [facility] Last Admin: 12/17/16 10:29 Dose: Not Given Simethicone (Mylicon Chew Tab) 80 mg PO QID PRN PRN Reason: Flatulence Last Admin: 12/17/16 09:23 Dose: 80 mg Sitagliptin Phosphate (Januvia) 100 mg PO DAILY [facility] Last Admin: 12/17/16 10:28 Dose: Not Given Sucralfate (Carafate Oral Susp) 1 gm PO BID [facility] Last Admin: 12/17/16 09:20 Dose: 1 gm - Labs Labs: 12/15/16 06:00 12/15/16 06:00 Assessment and Plan (1) Physical debility Status: Acute (2) Cardiomyopathy Status: Acute (3) Bilateral pleural effusion Status: Acute (4) COPD (chronic obstructive pulmonary disease) Status: Acute (5) Leg edema Status: Acute (6) CHF (congestive heart failure) Status: Chronic (7) Gastritis Status: Acute
--- NOTE | 2016-12-17 10:54 | CP.PCM.PN ---
Subjective - Date & Time of Evaluation Date of Evaluation: 12/17/16 Time of Evaluation: 10:54 - Subjective Subjective: Patient remains stable Has no chest pain or SOB Objective - Vital Signs/Intake and Output Vital Signs (last 24 hours): Temp Pulse Resp BP Pulse Ox 97.2 F L 96 H 20 96/68 L 86 L 12/17/16 07:57 12/17/16 07:57 12/17/16 07:57 12/17/16 07:57 12/17/16 07:57 - Medications Medications: Current Medications Al Hydrox/Mg Hydrox/Simethicone (Maalox Plus 30 Ml) 30 ml PO Q6 PRN PRN Reason: Indigestion / Heartburn Last Admin: 12/17/16 09:21 Dose: 30 ml Alprazolam (Xanax) 0.25 mg PO Q12 PRN PRN Reason: Anxiety Stop: 12/22/16 09:48 Last Admin: 12/17/16 00:29 Dose: 0.25 mg Apixaban (Eliquis) 5 mg PO BID [facility] PRN Reason: Protocol Last Admin: 12/17/16 10:27 Dose: Not Given Aspirin (Aspirin Chewable) 81 mg PO DAILY [facility] Last Admin: 12/17/16 10:27 Dose: Not Given Enalapril Maleate (Vasotec) 2.5 mg PO DAILY [facility] Last Admin: 12/17/16 10:29 Dose: Not Given Furosemide (Lasix) 40 mg PO DAILY [facility] Last Admin: 12/17/16 10:28 Dose: Not Given Guaifenesin/Dextromethorphan (Robitussin Dm) 5 ml PO Q6H PRN PRN Reason: Cough Vancomycin HCl 1 gm/ Sodium (Chloride) 250 mls @ 125 mls/hr IVPB Q12H [facility] Last Admin: 12/17/16 10:29 Dose: Not Given Piperacillin Sod/Tazobactam (Sod 3.375 gm/ Sodium Chloride) 100 mls @ 100 mls/ hr IVPB 0000,0600,1200,1800 [facility] Last Admin: 12/17/16 05:45 Dose: Not Given Insulin Detemir (Levemir) 10 units SC HS [facility] Last Admin: 12/16/16 21:05 Dose: 10 units Insulin Human Regular (Humulin R) 0 units SC ACHS [facility] PRN Reason: Protocol Last Admin: 12/17/16 06:49 Dose: 3 units Levalbuterol HCl (Xopenex) 0.63 mg IH RQ8 [facility] Last Admin: 12/17/16 07:43 Dose: Not Given Levothyroxine Sodium (Synthroid) 125 mcg PO ACB [facility] Last Admin: 12/17/16 06:30 Dose: 125 mcg Metformin HCl (Glucophage) 1,000 mg PO BIDWM [facility] Last Admin: 12/17/16 10:27 Dose: Not Given Metoprolol Tartrate (Lopressor) 25 mg PO Q12 [facility] Last Admin: 12/17/16 10:28 Dose: Not Given Ondansetron HCl (Zofran Inj) 4 mg IVP Q4 PRN PRN Reason: Nausea/Vomiting Pantoprazole Sodium (Protonix Ec Tab) 20 mg PO DAILY [facility] Last Admin: 12/17/16 09:24 Dose: 20 mg Potassium Chloride (K-Dur 20 Meq Er Tab) 20 meq PO DAILY [facility] Last Admin: 12/17/16 09:21 Dose: Not Given Risperidone (Risperdal Oral Soln) 1 mg PO DAILY [facility] Last Admin: 12/17/16 10:29 Dose: Not Given Simethicone (Mylicon Chew Tab) 80 mg PO QID PRN PRN Reason: Flatulence Last Admin: 12/17/16 09:23 Dose: 80 mg Sitagliptin Phosphate (Januvia) 100 mg PO DAILY [facility] Last Admin: 12/17/16 10:28 Dose: Not Given Sucralfate (Carafate Oral Susp) 1 gm PO BID [facility] Last Admin: 12/17/16 09:20 Dose: 1 gm - Labs Labs: 12/15/16 06:00 12/15/16 06:00 Assessment and Plan (1) Physical debility Status: Acute (2) Cardiomyopathy Status: Acute (3) Bilateral pleural effusion Status: Acute (4) COPD (chronic obstructive pulmonary disease) Status: Acute (5) Leg edema Status: Acute (6) CHF (congestive heart failure) Status: Chronic (7) Gastritis Status: Acute
--- NOTE | 2016-12-17 15:06 | CP.PCM.CON ---
History of Present Illness - History of Present Illness History of Present Illness: Psychiatry consult Patient is a poor historian and was non-linear and tangential during the interview. Most past history was obtained from the chart. CC: "I'm leaving tomorrow." HPI: 51 yo female w/ reported past psychiatric history of bipolar, admitted to TCU for further physical therapy and rehab following CHF exacerbation, leg edema and respiratory insufficiency. Patient denies current symptoms of depression/anxiety/suleman/hallucinations/delusions. No SI/HI. She does not have any acute psychiatric complaints and does not believe she needs any psychiatric medications except for Xanax. She does not want inpatient psychiatric admission. She has difficultly answering questions linearly and is aware that she jumps from topic to topic. PPHx: Reports h/o psychiatric admissions, but does not know which medications she has taken in the past and denies current psychiatric treatment or follow- up. PMHx: As per chart- lymphoma, DM, bipolar disorder, migraines, hypothyroidism, CHF Allergies: NKDA Social history: Lives alone in an apt. Denies current drug/ etoh use. MSE: A + O x 3, good eye contact, calm/cooperative, psychmotor normal, mood "fine", affect- contricted, thought process- non-linear, thought content- no delusions. No hallucinations. No SI/HI. Poor insight/ limited judgment. Impression: 51 yo female w/ unclear past psychiatric history, possible history of bipolar disorder, not currently compliant with psychotropic medications except for Xanax, does not want inpatient psychiatric admission and denies acute psychiatric symptoms. Patient may also have some neurocognitive impairment vs developmental delay. -Recommend adoption social worker help arrange appropriate in home services if possible -Patient unwilling to take any psychotropic medications at this time; no acute inpatient psychiatric admission indicated Past Patient History - Infectious Disease Hx of Infectious Diseases: None - Tetanus Immunizations Tetanus Immunization: Unknown - Past Medical History & Family History Past Medical History?: Yes - Past Social History Smoking Status: Former Smoker - CARDIAC Hx Cardiac Disorders: Yes Hx Congestive Heart Failure: Yes Hx Hypercholesterolemia: Yes Hx Hypertension: Yes - PULMONARY Hx Respiratory Disorders: Yes Hx Chronic Obstructive Pulmonary Disease (COPD): Yes Hx Pneumonia: Yes Hx Pulmonary Embolism: Yes - NEUROLOGICAL Hx Migraine: Yes Hx Seizures: No - HEENT Hx HEENT Problems: No - RENAL Hx Chronic Kidney Disease: No - ENDOCRINE/METABOLIC Hx Endocrine Disorders: Yes Hx Diabetes Mellitus Type 2: Yes Hx Hypothyroidism: Yes - HEMATOLOGICAL/ONCOLOGICAL Hx AIDS: No Hx Human Immunodeficiency Virus (HIV): No - INTEGUMENTARY Hx Dermatological Problems: No Hx Basil Cell: No Hx Eczema: No Hx Melanoma: No Hx Psoriasis: No Hx Squamous Cell: No - MUSCULOSKELETAL/RHEUMATOLOGICAL Hx Falls: No - GASTROINTESTINAL Hx Diverticulitis: Yes - GENITOURINARY/GYNECOLOGICAL Hx Sexually Transmitted Disorders: No - PSYCHIATRIC Hx Psychophysiologic Disorder: Yes Hx Anxiety: Yes Hx Bipolar Disorder: Yes - SURGICAL HISTORY Hx Appendectomy: No Hx Cholecystectomy: Yes Hx Coronary Stent: No - ANESTHESIA Hx Anesthesia: Yes Hx Anesthesia Reactions: No Hx Malignant Hyperthermia: No Meds Allergies/Adverse Reactions: Allergies Allergy/AdvReac Type Severity Reaction Status Date / Time No Known Allergies Allergy Verified 11/30/16 16:29 - Medications Medications: Current Medications Al Hydrox/Mg Hydrox/Simethicone (Maalox Plus 30 Ml) 30 ml PO Q6 PRN PRN Reason: Indigestion / Heartburn Last Admin: 12/17/16 09:21 Dose: 30 ml Alprazolam (Xanax) 0.25 mg PO Q12 PRN PRN Reason: Anxiety Stop: 12/22/16 09:48 Last Admin: 12/17/16 00:29 Dose: 0.25 mg Apixaban (Eliquis) 5 mg PO BID [facility] PRN Reason: Protocol Last Admin: 12/17/16 10:27 Dose: Not Given Aspirin (Aspirin Chewable) 81 mg PO DAILY [facility] Last Admin: 12/17/16 10:27 Dose: Not Given Enalapril Maleate (Vasotec) 2.5 mg PO DAILY [facility] Last Admin: 12/17/16 10:29 Dose: Not Given Furosemide (Lasix) 40 mg PO BID [facility] Guaifenesin/Dextromethorphan (Robitussin Dm) 5 ml PO Q6H PRN PRN Reason: Cough Insulin Detemir (Levemir) 10 units SC HS [facility] Last Admin: 12/16/16 21:05 Dose: 10 units Insulin Human Regular (Humulin R) 0 units SC ACHS [facility] PRN Reason: Protocol Last Admin: 12/17/16 11:57 Dose: 6 units Levalbuterol HCl (Xopenex) 0.63 mg IH RQ8 [facility] Last Admin: 12/17/16 07:43 Dose: Not Given Levothyroxine Sodium (Synthroid) 125 mcg PO ACB [facility] Last Admin: 12/17/16 06:30 Dose: 125 mcg Metformin HCl (Glucophage) 1,000 mg PO BIDWM [facility] Last Admin: 12/17/16 10:27 Dose: Not Given Metoprolol Tartrate (Lopressor) 25 mg PO Q12 [facility] Last Admin: 12/17/16 10:28 Dose: Not Given Ondansetron HCl (Zofran Inj) 4 mg IVP Q4 PRN PRN Reason: Nausea/Vomiting Pantoprazole Sodium (Protonix Ec Tab) 20 mg PO DAILY [facility] Last Admin: 12/17/16 09:24 Dose: 20 mg Potassium Chloride (K-Dur 20 Meq Er Tab) 20 meq PO DAILY [facility] Last Admin: 12/17/16 09:21 Dose: Not Given Risperidone (Risperdal Oral Soln) 1 mg PO DAILY [facility] Last Admin: 12/17/16 10:29 Dose: Not Given Simethicone (Mylicon Chew Tab) 80 mg PO QID PRN PRN Reason: Flatulence Last Admin: 12/17/16 09:23 Dose: 80 mg Sitagliptin Phosphate (Januvia) 100 mg PO DAILY [facility] Last Admin: 12/17/16 10:28 Dose: Not Given Sucralfate (Carafate Oral Susp) 1 gm PO BID [facility] Last Admin: 12/17/16 09:20 Dose: 1 gm Results - Vital Signs Recent Vital Signs: Last Vital Signs Temp 97.2 F L 12/17/16 07:57 Pulse 96 H 12/17/16 07:57 Resp 20 12/17/16 07:57 BP 96/68 L 12/17/16 07:57 Pulse Ox 86 L 12/17/16 07:57 - Labs Result Diagrams: 12/15/16 06:00 12/15/16 06:00 Labs: Laboratory Results - last 24 hr 12/16/16 12/16/16 12/17/16 16:15 19:51 05:33 POC Glucose (mg/dL) 415 H* 239 H 242 H 12/17/16 10:55 POC Glucose (mg/dL) 308 H
[2016-12-17 16:10] LABS: BLOOD UREA NITROGEN 38 mg/dl (7-17); CARBON DIOXIDE 23 mmol/L (22-30); CHLORIDE 86 mmol/L (98-107); GFR AFRICAN-AMERICAN > 60; GLUCOSE,RANDOM 296 mg/dL (65-105); POTASSIUM 5.1 MMOL/L (3.6-5.0)
[2016-12-17 16:27] LABS: SODIUM 119 mmol/l (132-148)
--- NOTE | 2016-12-17 17:09 | CP.PCM.CON ---
History of Present Illness - History of Present Illness History of Present Illness: Pulmonary consult. 51 y/o F, admitted to [facility] Telemetry floor on 12/09/16 Tx for: Respiratory Insufficiency, B/L Pleural effusion. CHF Exacerbation, on 12/14/16 Pt condition improved and was transferred to TCU unit for rehab and PT. Pt denied: Fever, chills, sweating, numbness, n/v/d, dizziness, bloody cough, sick contact. PMHx : CHF systolic, HTN, R subclavian vein DVT , Poss RLL embolus , Hypercholesterolemia, COPD, Hypothyroidism, Diverticulitis, Anxiety, Depression , Bipolar Disorder, Migraine, Lymphoma, Gastritis. Review of Systems - Constitutional Constitutional: Other (negative) - EENT Eyes: Other (negative) Ears: Other (negative) Nose/Mouth/Throat: Other (negative) - Cardiovascular Cardiovascular: Dyspnea, Leg Edema, Rapid Heart Rate - Respiratory Respiratory: Cough - Gastrointestinal Gastrointestinal: Abdominal Pain - Genitourinary Genitourinary: Other (negative) - Musculoskeletal Musculoskeletal: Back Pain - Integumentary Integumentary: Other (negative) - Neurological Neurological: Other (negative) - Psychiatric Psychiatric: Other (negative) - Endocrine Endocrine: Other (negative) - Hematologic/Lymphatic Hematologic: Other (negative) Past Patient History - Infectious Disease Hx of Infectious Diseases: None - Tetanus Immunizations Tetanus Immunization: Unknown - Past Medical History & Family History Past Medical History?: Yes Pertinent Family History: Unknown - Past Social History Smoking Status: Former Smoker Alcohol: None Drugs: Denies Home Situation {Lives}: Alone - CARDIAC Hx Cardiac Disorders: Yes Hx Congestive Heart Failure: Yes Hx Hypercholesterolemia: Yes Hx Hypertension: Yes - PULMONARY Hx Respiratory Disorders: Yes Hx Chronic Obstructive Pulmonary Disease (COPD): Yes Hx Pneumonia: Yes Hx Pulmonary Embolism: Yes - NEUROLOGICAL Hx Migraine: Yes Hx Seizures: No - HEENT Hx HEENT Problems: No - RENAL Hx Chronic Kidney Disease: No - ENDOCRINE/METABOLIC Hx Endocrine Disorders: Yes Hx Diabetes Mellitus Type 2: Yes Hx Hypothyroidism: Yes - HEMATOLOGICAL/ONCOLOGICAL Hx AIDS: No Hx Human Immunodeficiency Virus (HIV): No - INTEGUMENTARY Hx Dermatological Problems: No Hx Basil Cell: No Hx Eczema: No Hx Melanoma: No Hx Psoriasis: No Hx Squamous Cell: No - MUSCULOSKELETAL/RHEUMATOLOGICAL Hx Falls: No - GASTROINTESTINAL Hx Diverticulitis: Yes - GENITOURINARY/GYNECOLOGICAL Hx Sexually Transmitted Disorders: No - PSYCHIATRIC Hx Psychophysiologic Disorder: Yes Hx Anxiety: Yes Hx Bipolar Disorder: Yes - SURGICAL HISTORY Hx Appendectomy: No Hx Cholecystectomy: Yes - ANESTHESIA Hx Anesthesia: Yes Hx Anesthesia Reactions: No Hx Malignant Hyperthermia: No Meds Home Medications: Home Medication List Medication Instructions Recorded Confirmed Type ALPRAZolam [Xanax] 0.25 mg PO Q12 PRN tab 12/18/16 Rx Aluminum Hydroxide/Magnesium 30 ml PO Q6 PRN 12/18/16 Rx [Maalox Plus 30 ml] Aspirin [Aspirin Chewable] 81 mg PO DAILY 12/18/16 Rx Enalapril Maleate [Vasotec] 2.5 mg PO DAILY tab 12/18/16 Rx Insulin Detemir [Levemir] 10 units SC HS vial 12/18/16 Rx Levothyroxine [Synthroid] 125 mcg PO ACB tab 12/18/16 Rx MetFORMIN [glucoPHAGE] 1,000 mg PO BIDWM tab 12/18/16 Rx Metoprolol Tartrate [Lopressor] 25 mg PO Q12 tab 12/18/16 Rx Pantoprazole [Protonix EC Tab] 20 mg PO DAILY ect 12/18/16 Rx SITagliptin [Januvia] 100 mg PO DAILY tab 12/18/16 Rx Simethicone [Mylicon Chew Tab] 80 mg PO QID PRN 12/18/16 Rx Sucralfate [Carafate Oral Susp] 1 gm PO BID 12/18/16 Rx risperiDONE [RisperDAL Oral Soln] 1 mg PO DAILY ml 12/18/16 Rx Allergies/Adverse Reactions: Allergies Allergy/AdvReac Type Severity Reaction Status Date / Time No Known Allergies Allergy Verified 12/18/16 12:08 - Medications Medications: Current Medications Al Hydrox/Mg Hydrox/Simethicone (Maalox Plus 30 Ml) 30 ml PO Q6 PRN PRN Reason: Indigestion / Heartburn Last Admin: 12/17/16 09:21 Dose: 30 ml Alprazolam (Xanax) 0.25 mg PO Q12 PRN PRN Reason: Anxiety Stop: 12/22/16 09:48 Last Admin: 12/17/16 00:29 Dose: 0.25 mg Apixaban (Eliquis) 5 mg PO BID [facility] PRN Reason: Protocol Last Admin: 12/17/16 16:42 Dose: 5 mg Aspirin (Aspirin Chewable) 81 mg PO DAILY [facility] Last Admin: 12/17/16 10:27 Dose: Not Given Enalapril Maleate (Vasotec) 2.5 mg PO DAILY [facility] Last Admin: 12/17/16 10:29 Dose: Not Given Furosemide (Lasix) 40 mg PO DAILY [facility] Guaifenesin/Dextromethorphan (Robitussin Dm) 5 ml PO Q6H PRN PRN Reason: Cough Insulin Detemir (Levemir) 10 units SC HS [facility] Last Admin: 12/16/16 21:05 Dose: 10 units Insulin Human Regular (Humulin R) 0 units SC ACHS [facility] PRN Reason: Protocol Last Admin: 12/17/16 16:56 Dose: 4 units Levalbuterol HCl (Xopenex) 0.63 mg IH RQ8 [facility] Last Admin: 12/17/16 16:10 Dose: 0.63 mg Levothyroxine Sodium (Synthroid) 125 mcg PO ACB [facility] Last Admin: 12/17/16 06:30 Dose: 125 mcg Metformin HCl (Glucophage) 1,000 mg PO BIDWM [facility] Last Admin: 12/17/16 16:42 Dose: 1,000 mg Metoprolol Tartrate (Lopressor) 25 mg PO Q12 [facility] Last Admin: 12/17/16 10:28 Dose: Not Given Ondansetron HCl (Zofran Inj) 4 mg IVP Q4 PRN PRN Reason: Nausea/Vomiting Pantoprazole Sodium (Protonix Ec Tab) 20 mg PO DAILY [facility] Last Admin: 12/17/16 09:24 Dose: 20 mg Potassium Chloride (K-Dur 20 Meq Er Tab) 20 meq PO DAILY [facility] Last Admin: 12/17/16 09:21 Dose: Not Given Risperidone (Risperdal Oral Soln) 1 mg PO DAILY [facility] Last Admin: 12/17/16 10:29 Dose: Not Given Simethicone (Mylicon Chew Tab) 80 mg PO QID PRN PRN Reason: Flatulence Last Admin: 12/17/16 09:23 Dose: 80 mg Sitagliptin Phosphate (Januvia) 100 mg PO DAILY [facility] Last Admin: 12/17/16 10:28 Dose: Not Given Sucralfate (Carafate Oral Susp) 1 gm PO BID [facility] Last Admin: 12/17/16 16:55 Dose: Not Given Physical Exam - Constitutional Appears: No Acute Distress - Head Exam Head Exam: NORMAL INSPECTION - Eye Exam Eye Exam: PERRL - ENT Exam ENT Exam: Normal Oropharynx - Neck Exam Neck exam: Positive for: Normal Inspection - Respiratory Exam Respiratory Exam: Decreased Breath Sounds (at bases) - Cardiovascular Exam Cardiovascular Exam: REGULAR RHYTHM - GI/Abdominal Exam GI & Abdominal Exam: Normal Bowel Sounds, Soft - Extremities Exam Additional comments: Legs edema. - Back Exam Back exam: NORMAL INSPECTION - Neurological Exam Neurological exam: Alert, Oriented x3 Additional comments: No motor sensory deficit - Psychiatric Exam Psychiatric exam: Normal Mood - Skin Skin Exam: Warm Results - Vital Signs Recent Vital Signs: Last Vital Signs Temp 97.5 F L 12/17/16 16:21 Pulse 110 H 12/17/16 16:21 Resp 20 12/17/16 16:21 BP 128/80 12/17/16 16:57 Pulse Ox 97 12/17/16 16:21 reviewed J.P. - Labs Result Diagrams: 12/15/16 06:00 12/18/16 06:28 Labs: Laboratory Results - last 24 hr 12/16/16 12/17/16 12/17/16 19:51 05:33 10:55 Sodium Potassium Chloride Carbon Dioxide Anion Gap BUN Creatinine Est GFR ( Amer) Est GFR (Non-Af Amer) POC Glucose (mg/dL) 239 H 242 H 308 H Random Glucose Calcium NT-Pro-B Natriuret Pep 12/17/16 12/17/16 12/17/16 15:45 15:45 16:51 Sodium 119 L* Potassium 5.1 H Chloride 86 L Carbon Dioxide 23 Anion Gap 15 BUN 38 H Creatinine 0.7 Est GFR ( Amer) > 60 Est GFR (Non-Af Amer) > 60 POC Glucose (mg/dL) 296 H Random Glucose 296 H Calcium 9.0 NT-Pro-B Natriuret Pep 3310 H reviewed J.P. Assessment & Plan (1) Bilateral pleural effusion Status: Acute Priority: High (2) Atelectasis of both lungs Status: Acute Priority: High (3) CHF (congestive heart failure) Status: Chronic (4) COPD (chronic obstructive pulmonary disease) Status: Acute - Assessment and Plan (Free Text) Assessment: Poss RLL embolus Plan: Continue Xopenex, Robitusin DM prn, Eliquis, Lasix and rest of Tx. - Date & Time Date: 12/17/16 Time: 11:00
--- NOTE | 2016-12-17 17:34 | CON ---
DATE: 12/17/2016 REASON FOR CONSULTATION: Congestive heart failure. HISTORY OF PRESENT ILLNESS: The patient is a 51-year-old female who has nonischemic cardiomyopathy, history of neck lymphoma, was treated 7 years ago, history of left subclavian DVT diagnosed in of this year and is on Eliquis therapy. The patient has bipolar disorder 2. Has multiple admissio ns for exacerbation of congestive heart failure. The patient was recently transferred to TCU for stanley abilitation. She denies chest pain at this time. SOCIAL HISTORY: The patient is nonsmoker. 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 MEDICATIONS: Aspirin 81 mg once a day, Carafate 1 gram twice a day, Eliquis 5 mg twice a day, Glucop js 1 gram twice a day, Januvia 100 mg once a day, K-Dur at 20 mEq twice a day, Lasix 40 mg p.o. twi ce a day, Lopressor 25 mg twice a day, hydroxy magnesium 30 mL q. 6 hours. REVIEW OF SYSTEMS: No nausea or vomiting, no fever or chills. The patient did experience nausea, vo miting, abdominal pain on her admission to telemetry. PHYSICAL EXAMINATION: GENERAL: The patient is a middle-aged female who does not appear to be in any distress. VITAL SIGNS: Blood pressure 96/68, heart rate 96, temperature 97.2, respirations 20. HEENT: Normocephalic. NECK: No JVD. CHEST: Diminished breath sounds over the bases. HEART: S1, S2 regular. EXTREMITIES: 1+ pitting edema. LABORATORY DATA: Hemoglobin and hematocrit 2 days ago were 12.3 and 37.5, white count 14.6, platelet count 337,000. SMA-7 on 12/15/2016: Sodium 123, potassium , chloride 88, CO2 24, glucose 308, BUN 39, creatinine 0.7. Recent liver CT scan reported enhancement of the liver without definit e evidence of enhancing mass lesion. Moderate bilateral pleural effusion associated with bilateral l ower lobe atelectasis. Venous Dopplers of upper and lower extremities were performed on 12/10/2016 and they were negative. ASSESSMENT: 1. Nonischemic cardiomyopathy. 2. Bilateral pleural effusion. 3. Uncontrolled diabetes mellitus. 4. Recently diagnosed right subclavian deep venous thrombosis in August of this year at [facility]. RECOMMENDATIONS: Continue current aspirin 81 mg once a day, Eliquis 5 mg twice a day, K-Dur 20 mEq o nce a day, Lasix at mg p.o. twice a day, consider LON inhibitors once the blood pressure improv es. Obtain BMP in a.m. as well as magnesium level. Vishal Zavala MD cc: [id number] TT: 12/17/2016 17:34:16 Confirmation # [id number] Dictation # [id number]
--- NOTE | 2016-12-17 18:34 | CP.PCM.CON ---
History of Present Illness - History of Present Illness History of Present Illness: History of Present Illness: Initial Nephrology Consultation: Assessment: Hypervolemic hyponatremia due to her CHF and expanded volume status chronic systolic CHF, DM uncontrolled with hyperglycemia, Bipolar disorder, hypothyoridism Plan will check urine studies as urine Na, osmol and UA. also order for serum Osmol and uric acid will diurese her with IV loop diuretic as IV lasix 40 mg/day. if no response then will consider to add Tolvaptan avoid increase in serum Na >6 meq/24 hr oral fluid restriction to 800-1000 mL/day monitor serum Na closely Glycemic control Further work up/management as per primary team Thanks for allowing me to participate in care of your patient. Will follow patient with you. Please call if any Qs Dr Bogdan Valera Office: [phone] Chief Complaint; leg swelling HPI: Pt is a 51 y/o F with hx of chronic systolic CHF, DM uncontrolled with hyperglycemia, Bipolar disorder, hypothyoridism and hyponatremia with Na usually in 127-130 range found to have serum Na 119 and renal consulted for hyponatremia. she c/o leg swelling and SOB on exertion and lying down. denies urinary complaints such as painful or burning urination. Denies chest pain, palpitation, has c/o shortness of breath, leg swelling Denies blood or bubbles in urine Denies OTC/herbal meds or NSAIDs on psych meds as risperdal. ROS: Constitutional Symptoms: Denies fever. No chills. Eyes: denies change in vision, denies watery eyes, denies double vision Ears/Nose/Mouth/Throat: Denies Abnormal Taste. No Bad breath or Bad Taste. Cardiovascular: No chest pain. There is c/o shortness of breath. c/o palpitations. Pulmonary: c/o shortness of breath denies cough. Gastrointestinal: denies abdominal pain No nausea. No vomiting. Denies change in bowel habits. Denies Bleeding Genitourinary: No Change in force of strain when urinating. No increase in urinary frequency. No pain while urinating. Denies blood in urine. Neurological: Denies headaches. No dizziness. Denies loss of balance. Denies weakness, denies tingling/numbness Dermatological: No Rash or Bruising or ulcers. Psychiatric: Denies Anxiety. No depression. Denies hallucinations. Rheumatological: No joint pain. c/o leg swelling Endocrine: Denies over tiredness. Denies Fatigue and Heat/Cold Intolerance. Physical Examination: General Appearance: Comfortable, in no acute respiratory distress, co- operative. Vitals reviewed and noted as below Head; Atraumatic, normocephalic ENT: no ulcers no thrush. Tongue is midline. Oropharynx: no rash or ulcers. EYES: Pupils are equal, round and reactive to light accommodation. Eye muscles and extraocular movement intact. Sclera is anicteric. Neck; supple no lymphadenopathy, no thyromegaly or bruit Lungs: Normal respiratory rate/effort. Breath sounds decreased at bases. Heart: Increased rate. s1s2 normal. No rub ? gallop. Extremities: 3+ edema. No varicose veins Neurological: Patient is alert, awake and oriented to person, place and time. No focal deficit. Strength bilateral appropriate and equal Skin: somewhat cool to touch leg skin, dry. Normal turgor. No rash. Palpitation : Normal elasticity for age Abdomen: Abdomen is soft. Bowel sounds +. There is no abdominal tenderness, no guarding/rigidity or organomegaly Psych: normal insight and normal affect/mood at this time MSK: no joint tenderness or swelling. Digits and nails normal, no deformity : kidney or bladder not palpable Labs/imaging reviewed. Past medical history, past surgical history, family history, social history, allergy reviewed and noted as below Work up: TGL 97 TSH 3.8 A1c 12% BNP 3300 CXR: b/l large pleural effusion Echo: LVEF 30% Past Patient History - Infectious Disease Hx of Infectious Diseases: None - Tetanus Immunizations Tetanus Immunization: Unknown - Past Medical History & Family History Past Medical History?: Yes - Past Social History Smoking Status: Former Smoker - CARDIAC Hx Cardiac Disorders: Yes Hx Congestive Heart Failure: Yes Hx Hypercholesterolemia: Yes Hx Hypertension: Yes - PULMONARY Hx Respiratory Disorders: Yes Hx Chronic Obstructive Pulmonary Disease (COPD): Yes Hx Pneumonia: Yes Hx Pulmonary Embolism: Yes - NEUROLOGICAL Hx Migraine: Yes Hx Seizures: No - HEENT Hx HEENT Problems: No - RENAL Hx Chronic Kidney Disease: No - ENDOCRINE/METABOLIC Hx Endocrine Disorders: Yes Hx Diabetes Mellitus Type 2: Yes Hx Hypothyroidism: Yes - HEMATOLOGICAL/ONCOLOGICAL Hx AIDS: No Hx Human Immunodeficiency Virus (HIV): No - INTEGUMENTARY Hx Dermatological Problems: No Hx Basil Cell: No Hx Eczema: No Hx Melanoma: No Hx Psoriasis: No Hx Squamous Cell: No - MUSCULOSKELETAL/RHEUMATOLOGICAL Hx Falls: No - GASTROINTESTINAL Hx Diverticulitis: Yes - GENITOURINARY/GYNECOLOGICAL Hx Sexually Transmitted Disorders: No - PSYCHIATRIC Hx Psychophysiologic Disorder: Yes Hx Anxiety: Yes Hx Bipolar Disorder: Yes - SURGICAL HISTORY Hx Appendectomy: No Hx Cholecystectomy: Yes Hx Coronary Stent: No - ANESTHESIA Hx Anesthesia: Yes Hx Anesthesia Reactions: No Hx Malignant Hyperthermia: No Meds Allergies/Adverse Reactions: Allergies Allergy/AdvReac Type Severity Reaction Status Date / Time No Known Allergies Allergy Verified 11/30/16 16:29 - Medications Medications: Current Medications Al Hydrox/Mg Hydrox/Simethicone (Maalox Plus 30 Ml) 30 ml PO Q6 PRN PRN Reason: Indigestion / Heartburn Last Admin: 12/17/16 09:21 Dose: 30 ml Alprazolam (Xanax) 0.25 mg PO Q12 PRN PRN Reason: Anxiety Stop: 12/22/16 09:48 Last Admin: 12/17/16 00:29 Dose: 0.25 mg Apixaban (Eliquis) 5 mg PO BID [facility] PRN Reason: Protocol Last Admin: 12/17/16 16:42 Dose: 5 mg Aspirin (Aspirin Chewable) 81 mg PO DAILY [facility] Last Admin: 12/17/16 10:27 Dose: Not Given Enalapril Maleate (Vasotec) 2.5 mg PO DAILY [facility] Last Admin: 12/17/16 10:29 Dose: Not Given Furosemide (Lasix) 40 mg IVP DAILY [facility] Guaifenesin/Dextromethorphan (Robitussin Dm) 5 ml PO Q6H PRN PRN Reason: Cough Insulin Detemir (Levemir) 10 units SC HS [facility] Last Admin: 12/16/16 21:05 Dose: 10 units Insulin Human Regular (Humulin R) 0 units SC ACHS [facility] PRN Reason: Protocol Last Admin: 12/17/16 16:56 Dose: 4 units Levalbuterol HCl (Xopenex) 0.63 mg IH RQ8 [facility] Last Admin: 12/17/16 16:10 Dose: 0.63 mg Levothyroxine Sodium (Synthroid) 125 mcg PO ACB [facility] Last Admin: 12/17/16 06:30 Dose: 125 mcg Metformin HCl (Glucophage) 1,000 mg PO BIDWM [facility] Last Admin: 12/17/16 16:42 Dose: 1,000 mg Metoprolol Tartrate (Lopressor) 25 mg PO Q12 [facility] Last Admin: 12/17/16 10:28 Dose: Not Given Ondansetron HCl (Zofran Inj) 4 mg IVP Q4 PRN PRN Reason: Nausea/Vomiting Pantoprazole Sodium (Protonix Ec Tab) 20 mg PO DAILY [facility] Last Admin: 12/17/16 09:24 Dose: 20 mg Potassium Chloride (K-Dur 20 Meq Er Tab) 20 meq PO DAILY [facility] Last Admin: 12/17/16 09:21 Dose: Not Given Risperidone (Risperdal Oral Soln) 1 mg PO DAILY [facility] Last Admin: 12/17/16 10:29 Dose: Not Given Simethicone (Mylicon Chew Tab) 80 mg PO QID PRN PRN Reason: Flatulence Last Admin: 12/17/16 09:23 Dose: 80 mg Sitagliptin Phosphate (Januvia) 100 mg PO DAILY [facility] Last Admin: 12/17/16 10:28 Dose: Not Given Sucralfate (Carafate Oral Susp) 1 gm PO BID [facility] Last Admin: 12/17/16 16:55 Dose: Not Given Results - Vital Signs Recent Vital Signs: Last Vital Signs Temp 97.5 F L 12/17/16 16:21 Pulse 110 H 12/17/16 16:21 Resp 20 12/17/16 16:21 BP 128/80 12/17/16 16:57 Pulse Ox 97 12/17/16 16:21 - Labs Result Diagrams: 12/15/16 06:00 12/17/16 15:45 Labs: Laboratory Results - last 24 hr 12/16/16 12/17/16 12/17/16 19:51 05:33 10:55 Sodium Potassium Chloride Carbon Dioxide Anion Gap BUN Creatinine Est GFR ( Amer) Est GFR (Non-Af Amer) POC Glucose (mg/dL) 239 H 242 H 308 H Random Glucose Calcium NT-Pro-B Natriuret Pep 12/17/16 12/17/16 12/17/16 15:45 15:45 16:51 Sodium 119 L* Potassium 5.1 H Chloride 86 L Carbon Dioxide 23 Anion Gap 15 BUN 38 H Creatinine 0.7 Est GFR ( Amer) > 60 Est GFR (Non-Af Amer) > 60 POC Glucose (mg/dL) 296 H Random Glucose 296 H Calcium 9.0 NT-Pro-B Natriuret Pep 3310 H
[2016-12-17] MEDS: Insulin Detemir 100 Units/ml Inj SC SCH (22:28)
[2016-12-18] MEDS: Levalbuterol 0.63 MG/3 ML Inhal Soln UD IH SCH ×2 (00:01→07:51)
[2016-12-18 06:39] LABS: RBC URINE 4 /hpf (0-3); URINE BACTERIA RARE (<OCC); URINE BILIRUBIN NEGATIVE (NEGATIVE); URINE BLOOD NEGATIVE (NEGATIVE); URINE CALCIUM OXALATE CRYSTALS OCC /hpf (<OCC); URINE COLOR AMBER (YELLOW); URINE GLUCOSE (UA) >=500 mg/dL (Normal); URINE KETONE NEGATIVE (NEGATIVE); URINE LEUKOCYTE ESTERASE SMALL Leu/uL (Negative); URINE PROTEIN NEGATIVE (NEGATIVE); URINE UROBILINOGEN 0.2-1.0 mg/dL (0.2-1.0); WBC URINE 7 /hpf (0-5)
[2016-12-18] MEDS: Levothyroxine 125 MCG TAB PO SCH (06:44)
[2016-12-18 07:02] LABS: BLOOD UREA NITROGEN 40 mg/dl (7-17); CARBON DIOXIDE 19 mmol/L (22-30); CHLORIDE 85 mmol/L (98-107); GFR AFRICAN-AMERICAN > 60; MAGNESIUM 2.2 MG/DL (1.6-2.3)
[2016-12-18 07:14] LABS: GLUCOSE,RANDOM 404 mg/dL (65-105)
[2016-12-18 07:15] LABS: SODIUM 119 mmol/l (132-148)
[2016-12-18 07:16] LABS: POTASSIUM 5.7 MMOL/L (3.6-5.0)
[2016-12-18] MEDS: Insulin Regular 100 units/ml SC SCH ×2 (07:29→11:06)
[2016-12-18 08:08] VITALS: TEMP 87.3; O2SAT 99
[2016-12-18] MEDS: Pantoprazole 20 mg EC Tab PO SCH (10:06)
[2016-12-18] MEDS: Sucralfate 1 gm/10 ml Oral Susp UD PO SCH (10:07)
[2016-12-18] MEDS: Potassium Chloride 20 mEq ER Tab PO SCH ×2 (10:08→10:55)
[2016-12-18] MEDS ORDERED: Levalbuterol 0.63 MG/3 ML Inhal Soln UD INH STA (10:11)
[2016-12-18 10:51] VITALS: BP 115/60
[2016-12-18 10:54] VITALS: PULSE 113
--- NOTE | 2016-12-18 12:17 | CP.PCM.DIS ---
Provider - Provider Date of Admission: 12/14/16 19:35 Attending physician: Jovan Claros MD Time Spent in preparation of Discharge (in minutes): 20 Diagnosis - Discharge Diagnosis (1) Cardiomyopathy Status: Acute (2) Gastritis Status: Acute (3) Physical debility Status: Acute (4) COPD (chronic obstructive pulmonary disease) Status: Acute (5) Pneumonia Status: Acute (6) CHF (congestive heart failure) Status: Chronic (7) Diabetes mellitus type 2 in nonobese Status: Chronic Hospital Course - Lab Results Lab Results: Most Recent Lab Values WBC 14.6 K/uL (4.8-10.8) H 12/15/16 06:00 RBC 4.84 Mil/uL (3.80-5.20) 12/15/16 06:00 Hgb 12.3 g/dL (12.0-16.0) 12/15/16 06:00 Hct 37.5 % (34.0-47.0) 12/15/16 06:00 MCV 77.3 fl (81.0-99.0) L 12/15/16 06:00 MCH 25.3 pg (27.0-31.0) L 12/15/16 06:00 MCHC 32.7 g/dL (33.0-37.0) L 12/15/16 06:00 RDW 21.5 % (11.5-14.5) H 12/15/16 06:00 Plt Count 377 K/uL (130-400) 12/15/16 06:00 Sodium 119 mmol/l (132-148) L* 12/18/16 06:28 Potassium 5.7 MMOL/L (3.6-5.0) H 12/18/16 06:28 Chloride 85 mmol/L (98-107) L 12/18/16 06:28 Carbon Dioxide 19 mmol/L (22-30) L 12/18/16 06:28 Anion Gap 21 (10-20) H 12/18/16 06:28 BUN 40 mg/dl (7-17) H 12/18/16 06:28 Creatinine 0.9 mg/dL (0.7-1.2) 12/18/16 06:28 Est GFR ( Amer) > 60 12/18/16 06:28 Est GFR (Non-Af Amer) > 60 12/18/16 06:28 POC Glucose (mg/dL) 483 mg/dL (65-110) H* 12/18/16 10:56 Random Glucose 404 mg/dL (65-105) H* D 12/18/16 06:28 Serum Osmolality 284 mosm/kg (272-300) 12/17/16 18:30 Uric Acid 5.4 mg/Dl (2.2-7.5) 12/17/16 18:30 Calcium 9.0 mg/dL (8.4-10.2) 12/18/16 06:28 Magnesium 2.2 MG/DL (1.6-2.3) 12/18/16 06:28 NT-Pro-B Natriuret Pep 3310 pg/ml (0-900) H 12/17/16 15:45 Urine Color Jillian (YELLOW) 12/18/16 06:00 Urine Clarity Slighty-cloudy (Clear) 12/18/16 06:00 Urine pH 5.0 (5.0-8.0) 12/18/16 06:00 Ur Specific [place] 1.023 (1.003-1.030) 12/18/16 06:00 Urine Protein Negative mg/dL (NEGATIVE) 12/18/16 06:00 Urine Glucose (UA) >=500 mg/dL (Normal) 12/18/16 06:00 Urine Ketones Negative mg/dL (NEGATIVE) 12/18/16 06:00 Urine Blood Negative (NEGATIVE) 12/18/16 06:00 Urine Nitrate Negative (NEGATIVE) 12/18/16 06:00 Urine Bilirubin Negative (NEGATIVE) 12/18/16 06:00 Urine Urobilinogen 0.2-1.0 mg/dL (0.2-1.0) 12/18/16 06:00 Ur Leukocyte Esterase Small Kristin/uL (Negative) 12/18/16 06:00 Urine RBC (Auto) 4 /hpf (0-3) H 12/18/16 06:00 Urine Microscopic WBC 7 /hpf (0-5) H 12/18/16 06:00 Ur Squamous Epith Cells 8 /hpf (0-5) H 12/18/16 06:00 Calcium Oxalate Crystal Occ /hpf (<OCC) H 12/18/16 06:00 Urine Bacteria Rare (<OCC) 12/18/16 06:00 Hyaline Casts 11-20 /hpf (0-2) H 12/18/16 06:00 Urine Osmolality 526 mosm/kg (300-1000) 12/18/16 06:00 Ur Random Sodium < 5 mmol/L 12/18/16 06:00 - Hospital Course Hospital Course: 51yo F with PMHx bipolar, COPD, CHF, DM 2 and DVT upper extremity (Eliquis) admitted physical debility and continue management of CHF exacerbation. Pulm Dr. Woo c/s with continued management for pleural effusion. Psych Dr. Miller c /s and no psych admission recommended. Nephro Dr. Valera c/s and recommended IV lasix and tolvaptan with fluid restriction for hyponatremia. Podiatry Dr. Zavala c/s for nail trimming and LE edema with recommendation for follow up as outpt. Pt c/o of continued not feeling well and LE swelling at time of transfer to [facility] ED. Discharge Exam - Head Exam Head Exam: NORMAL INSPECTION - Eye Exam Eye Exam: Normal appearance - ENT Exam ENT Exam: Mucous Membranes Moist - Neck Exam Neck exam: Normal Inspection - Respiratory Exam Respiratory Exam: NORMAL BREATHING PATTERN - Cardiovascular Exam Cardiovascular Exam: REGULAR RHYTHM - GI/Abdominal Exam GI & Abdominal Exam: Normal Bowel Sounds - Extremities Exam Extremities exam: pedal edema (2+/3+) - Neurological Exam Neurological exam: Alert, Oriented x3 - Skin Skin Exam: Dry, Warm Discharge Plan - Follow Up Plan Condition: GOOD Disposition: Trans to Other Acute Care Hosp
--- NOTE | 2016-12-18 13:14 | CP.PCM.PN ---
Subjective - Date & Time of Evaluation Date of Evaluation: 12/18/16 Time of Evaluation: 13:13 - Subjective Subjective: renal follow up note transferred from tcu to er due to abnormal labs Objective - Vital Signs/Intake and Output Vital Signs (last 24 hours): Temp Pulse Resp BP Pulse Ox 87.3 F L 113 H 20 115/60 99 12/18/16 08:07 12/18/16 10:52 12/18/16 08:07 12/18/16 10:52 12/18/16 08:07 - Medications Medications: Current Medications Al Hydrox/Mg Hydrox/Simethicone (Maalox Plus 30 Ml) 30 ml PO Q6 PRN PRN Reason: Indigestion / Heartburn Last Admin: 12/17/16 09:21 Dose: 30 ml Alprazolam (Xanax) 0.25 mg PO Q12 PRN PRN Reason: Anxiety Stop: 12/22/16 09:48 Last Admin: 12/18/16 02:20 Dose: 0.25 mg Apixaban (Eliquis) 5 mg PO BID [facility] PRN Reason: Protocol Last Admin: 12/18/16 10:05 Dose: 5 mg Aspirin (Aspirin Chewable) 81 mg PO DAILY [facility] Last Admin: 12/18/16 10:07 Dose: 81 mg Enalapril Maleate (Vasotec) 2.5 mg PO DAILY [facility] Last Admin: 12/18/16 10:57 Dose: Not Given Furosemide (Lasix) 40 mg IVP DAILY [facility] Last Admin: 12/18/16 10:37 Dose: 40 mg Guaifenesin/Dextromethorphan (Robitussin Dm) 5 ml PO Q6H PRN PRN Reason: Cough Insulin Detemir (Levemir) 10 units SC HS [facility] Last Admin: 12/17/16 22:28 Dose: 10 units Insulin Human Regular (Humulin R) 0 units SC ACHS [facility] PRN Reason: Protocol Last Admin: 12/18/16 11:06 Dose: 10 units Levalbuterol HCl (Xopenex) 0.63 mg IH RQ8 [facility] Last Admin: 12/18/16 07:51 Dose: Not Given Levothyroxine Sodium (Synthroid) 125 mcg PO ACB [facility] Last Admin: 12/18/16 06:44 Dose: 125 mcg Metformin HCl (Glucophage) 1,000 mg PO BIDWM [facility] Last Admin: 12/18/16 10:06 Dose: 1,000 mg Metoprolol Tartrate (Lopressor) 25 mg PO Q12 [facility] Last Admin: 12/18/16 10:52 Dose: Not Given Ondansetron HCl (Zofran Inj) 4 mg IVP Q4 PRN PRN Reason: Nausea/Vomiting Pantoprazole Sodium (Protonix Ec Tab) 20 mg PO DAILY [facility] Last Admin: 12/18/16 10:06 Dose: 20 mg Risperidone (Risperdal Oral Soln) 1 mg PO DAILY [facility] Last Admin: 12/18/16 10:56 Dose: Not Given Simethicone (Mylicon Chew Tab) 80 mg PO QID PRN PRN Reason: Flatulence Last Admin: 12/17/16 09:23 Dose: 80 mg Sitagliptin Phosphate (Januvia) 100 mg PO DAILY [facility] Last Admin: 12/18/16 10:54 Dose: Not Given Sucralfate (Carafate Oral Susp) 1 gm PO BID [facility] Last Admin: 12/18/16 10:07 Dose: 1 gm - Labs Labs: 12/15/16 06:00 12/18/16 06:28 - Constitutional Appears: Non-toxic, No Acute Distress, Agitated - Head Exam Head Exam: NORMAL INSPECTION - Eye Exam Eye Exam: Normal appearance - ENT Exam ENT Exam: Mucous Membranes Moist - Respiratory Exam Respiratory Exam: NORMAL BREATHING PATTERN - Cardiovascular Exam Cardiovascular Exam: +S1, +S2 - GI/Abdominal Exam GI & Abdominal Exam: Soft - Extremities Exam Extremities Exam: Normal Inspection - Neurological Exam Neurological Exam: Alert, Oriented x3 - Psychiatric Exam Psychiatric exam: Flat Affect - Skin Skin Exam: Normal Color Assessment and Plan - Assessment and Plan (Free Text) Plan: hyponatremia/hyperkalemia/chf/dm/biploar disorder hx of non compliance and refused meds in tcu hyponatremia: some component of pseudo as blood sugar >400 in addition to chf causing hypervolemic hyponatremia recheck BMP once blood sugar improve hyperkalemia: medical management, should improve with hyperglycemia control bp ok chf management, per primary team
[2016-12-19 09:42] LABS: MICROALBUMIN 0.7 mg/dL
== END 2016-12-18 11:40 | disposition short-term general hospital (02) | DRG 544 ==
LOC: H.TCU 19:35
PROVIDERS: ADMIT Family Medicine; ATTEND Family Medicine
PROC: F07Z9FZ Gait Training/Functional Ambulation Treatment using Assistive, Adaptive, Supportive or Protective Equipment (ICD-10-PCS; principal; 2016-12-14)
PROC: F08Z4FZ Home Management Treatment using Assistive, Adaptive, Supportive or Protective Equipment (ICD-10-PCS; 2016-12-14)
PROC: 0HBRXZZ Excision of Toe Nail, External Approach (ICD-10-PCS; 2016-12-16)
DX: I11.0 Hypertensive heart disease with heart failure (principal); J18.9 Pneumonia, unspecified organism; J44.0 Chronic obstructive pulmonary disease with (acute) lower respiratory infection; E11.65 Type 2 diabetes mellitus with hyperglycemia; I42.8 Other cardiomyopathies; E87.1 Hypo-osmolality and hyponatremia; B35.1 Tinea unguium; J98.11 Atelectasis; I50.22 Chronic systolic (congestive) heart failure; I87.2 Venous insufficiency (chronic) (peripheral); E78.00 Pure hypercholesterolemia, unspecified; E03.9 Hypothyroidism, unspecified; K29.70 Gastritis, unspecified, without bleeding; F31.81 Bipolar II disorder; Z85.72 Personal history of non-Hodgkin lymphomas; Z86.711 Personal history of pulmonary embolism; Z86.718 Personal history of other venous thrombosis and embolism; Z87.891 Personal history of nicotine dependence

== ENCOUNTER 2016-12-18 11:57 | Inpatient (IN) | payer MEDICAID ==
[2016-12-18 11:57] VITALS: PULSE 100; BMI 23.8
[2016-12-18 12:49] LABS: BASO # 0.1 K/uL (0.0-0.2); BASO % 0.5 % (0.0-2.0); EOS % 0.1 % (0.0-4.0); HEMATOCRIT 39.5 % (34.0-47.0); LYMPH # 2.3 K/uL (1.0-4.3); LYMPH % 16.8 % (20.0-40.0); MEAN CELL VOLUME 78.2 fl (81.0-99.0); MEAN CORPUSCULAR HGB CONC 31.9 g/dL (33.0-37.0); MEAN PLATELET VOLUME 9.6 fl (7.2-11.7); MONO # 1.6 K/uL (0.0-0.8); MONO % 11.4 % (0.0-10.0); NEUT # 9.8 K/uL (1.8-7.0); NEUT % 71.2 % (50.0-75.0); NRBC % 0.3 % (0.0-0.0); RED CELL DISTRIBUTION WIDTH 21.8 % (11.5-14.5); WHITE BLOOD COUNT 13.8 K/uL (4.8-10.8)
[2016-12-18] MEDS ORDERED: Piperacillin/Tazobact 4.5 GM in Sodium Chloride 0.9% 100 ML IVPB ONE (13:00)
[2016-12-18 13:04] LABS: ALB/GLOB RATIO 1.3 (1.0-2.1); ALKALINE PHOSPHATASE 518 U/L (38-126); ALT/SGPT 423 U/L (9-52); AST/SGOT 246 U/L (14-36); BILIRUBIN,TOTAL 1.4 mg/dl (0.2-1.3); BLOOD UREA NITROGEN 42 mg/dl (7-17); CALCIUM 8.8 mg/dL (8.4-10.2); CARBON DIOXIDE 20 mmol/L (22-30); CHLORIDE 85 mmol/L (98-107); GFR AFRICAN-AMERICAN > 60; POTASSIUM 5.1 MMOL/L (3.6-5.0); TOTAL PROTEIN 6.9 G/DL (6.3-8.2)
[2016-12-18 13:14] LABS: GLUCOSE,RANDOM 404 mg/dL (65-105); SODIUM 119 mmol/l (132-148)
[2016-12-18] MEDS ORDERED: Insulin Regular 100 units/ml IVP ONE (14:07)
--- NOTE | 2016-12-18 14:23 | RAD ---
HISTORY: SOB COMPARISON: [facility] chest 12/11/2016. . FINDINGS: LUNGS: Mild vascular congestion with bilateral lower lobe alveolar-type infiltrates and/or atelectasis with moderately large bilateral effusions right larger than left PLEURA: No significant pleural effusion identified, no pneumothorax apparent. CARDIOVASCULAR: To assess due to silhouetting OSSEOUS STRUCTURES: No significant abnormalities. VISUALIZED UPPER ABDOMEN: Normal. OTHER FINDINGS: None. IMPRESSION: Mild pulmonary vascular congestive changes with bilateral lower lobe alveolar-type infiltrates and/or atelectasis with large bilateral effusions right larger than left
--- NOTE | 2016-12-18 14:33 | ED PDOC ---
HPI: General Adult Time Seen by Provider: 12/18/16 12:10 Chief Complaint (Nursing): Palpitations Chief Complaint (Provider): tachycardia, SOB History Per: Patient (poor historian), Other (prior chart, transfer paperwork) History/Exam Limitations: clinical condition Onset/Duration Of Symptoms: Unknown Current Symptoms Are (Timing): Still Present Severity: Severe Recently: Hospitalized Additional Complaint(s): 51yo female with multiple medical comorbidities presents to ED from TCU where she was found to be tachycardic with SOB. Had recent admission for CHF with electrolyte derangement requiring nephrology consult. Per admitting MD Dr Claros she was refusing to take medications. History limited due to mild confusion and poor historian. She denies chest pain. Past Medical History Reviewed: Historical Data, Nursing Documentation, Vital Signs Vital Signs: Last Vital Signs Temp 97.6 F 12/18/16 12:08 Pulse 116 H 12/18/16 15:17 Resp 20 12/18/16 12:08 BP 130/75 12/18/16 14:21 Pulse Ox 99 12/18/16 15:17 - Medical History PMH: Anxiety, Bipolar Disorder, CHF, COPD, Depression, Diverticulitis, Deep Vein Thrombosis, HTN, Hypercholesterolemia, Hyperlipidemia, Hypothyroidism, Migraine, Peripheral Edema, Pneumonia, Pulmonary Embolism Denies: Crohn's Disease, Diabetes, Hepatitis, HIV, Chronic Kidney Disease, Seizures, Sexually Transmitted Disease - Surgical History Surgical History: Cholecystectomy Denies: Appendectomy, Coronary Stent, Pacemaker - Family History Family History: States: Unknown Family Hx - Living Arrangements Living Arrangements: [facility] (partially homeless) - Social History Current smoker - smoking cessation education provided: No - Home Medications Home Medications: Ambulatory Orders Medication Instructions Recorded guaiFENesin/Dextromethorphan 5 ml PO Q6H PRN 12/06/16 [Robitussin DM] Apixaban [Eliquis] 5 mg PO BID tab 12/14/16 Levalbuterol [Xopenex] 0.63 mg IH RQ8 12/14/16 Ondansetron [Zofran Inj] 4 mg IVP Q4 PRN vial 12/14/16 ALPRAZolam [Xanax] 0.25 mg PO Q12 PRN tab 12/18/16 Aluminum Hydroxide/Magnesium 30 ml PO Q6 PRN 12/18/16 [Maalox Plus 30 ml] Aspirin [Aspirin Chewable] 81 mg PO DAILY 12/18/16 Enalapril Maleate [Vasotec] 2.5 mg PO DAILY tab 12/18/16 Furosemide [Lasix] 40 mg IVP DAILY 12/18/16 Insulin Detemir [Levemir] 10 units SC HS vial 12/18/16 Insulin Human Regular [HumuLIN R] See Protocol SC ACHS 12/18/16 Levothyroxine [Synthroid] 125 mcg PO ACB tab 12/18/16 MetFORMIN [glucoPHAGE] 1,000 mg PO BIDWM tab 12/18/16 Metoprolol Tartrate [Lopressor] 25 mg PO Q12 tab 12/18/16 Pantoprazole [Protonix EC Tab] 20 mg PO DAILY ect 12/18/16 SITagliptin [Januvia] 100 mg PO DAILY tab 12/18/16 Simethicone [Mylicon Chew Tab] 80 mg PO QID PRN 12/18/16 Sucralfate [Carafate Oral Susp] 1 gm PO BID 12/18/16 risperiDONE [RisperDAL Oral Soln] 1 mg PO DAILY ml 12/18/16 - Allergies Allergies/Adverse Reactions: Allergies Allergy/AdvReac Type Severity Reaction Status Date / Time No Known Allergies Allergy Verified 12/18/16 12:08 Review of Systems ROS Statement: Except As Marked, All Systems Reviewed And Found Negative Constitutional: Negative for: Fever, Chills Cardiovascular: Positive for: Palpitations, Orthopnea Respiratory: Positive for: Shortness of Breath Gastrointestinal: Negative for: Abdominal Pain Musculoskeletal: Negative for: Neck Pain, Shoulder Pain Skin: Negative for: Rash, Lesions Neurological: Positive for: Dizziness. Negative for: Weakness, Numbness, Headache Physical Exam - Reviewed Nursing Documentation Reviewed: Yes Vital Signs Reviewed: Yes - Physical Exam Appears: Positive for: Well, Non-toxic, No Acute Distress Head Exam: Positive for: ATRAUMATIC, NORMAL INSPECTION, NORMOCEPHALIC Skin: Positive for: Normal Color, Warm, DRY Eye Exam: Positive for: EOMI, Normal appearance, PERRL ENT: Positive for: Normal ENT Inspection Neck: Positive for: Normal, Painless ROM Cardiovascular/Chest: Positive for: Regular Rate, Rhythm Respiratory: Positive for: Decreased Breath Sounds, Rales, Respiratory Distress Gastrointestinal/Abdominal: Positive for: Bowel Sounds, Soft. Negative for: Tenderness Back: Positive for: Normal Inspection Extremity: Positive for: Pedal Edema, Swelling Neurologic/Psych: Positive for: Alert, Oriented. Negative for: Motor/Sensory Deficits - Laboratory Results Result Diagrams: 12/18/16 12:46 12/18/16 12:46 - ECG ECG: Positive for: Interpreted By Ia ECG Rhythm: Positive for: Sinus Tachycardia, Left Bundle Branch Block Rate: 116 O2 Sat by Pulse Oximetry: 99 Pulse Ox Interpretation: Normal (O2 dependent) - Radiology X-Ray: Interpreted by Me X-Ray Interpretation: Other (CHF and effusions b/l) - Critical Care Total Time (In Min): 35 Comments: pt required immediate bedside attention due to tachycardia and SOB Medical Decision Making Medical Decision Making: Workup initiated for resp failure. Patient is oxygen dependent, becomes SOB with distress off O2. Orders placed, Maintain cardiac and SPO2 monitoring. Prior records reviewed and case d/w Dr Hooks her PMD in [place] who states no need for transfer to [place]. CXR reveals worsening effusions and CHF pattern on my initial review. Labs reviewed and reveal significant electrolyte derangement with hyponatremia and hyperglycemia, elevating transaminases. Lasix 40mg IV ordered. Insulin 6u ordered for hyperglycemia Given tachycardia, appearance of CXR, severe electrolyte derangement, admit ICU for further care. CXR read by radiologist as possible infiltrates. VBG w lactate and blood cultures ordered, then Abx to be administered for possible HCAP. [place] [facility] [place] d[place]w Dr Orozco office, again unwilling to accept patient. Pt has poor insight. May need psych if requests to leave AMA. 345p while investigating possible sepsis, elevated lactate 4.9 triggered code sepsis response. NS bolus of 30ml/kg over 30min is contraindicated in patient due to profound hyponatremia and risk of irreversible CPM in addition to severe CHF. Blood Cultures ordered. Repeat lactate 3hrs in ICU. Gentle fluids initiated for resuscitation in already hypervolemic patient. D/w Dr Jones ICU. Disposition - Clinical Impression Clinical Impression: CHF exacerbation, Hyponatremia, Hyperglycemia, Respiratory failure, Pleural effusion, Septic shock - Patient ED Disposition Is Patient to be Admitted: Yes Counseled Patient/Family Regarding: Studies Performed, Diagnosis - Disposition Disposition Time: 14:10 Condition: GUARDED
[2016-12-18] MEDS ORDERED: Vancomycin 1 g Inj ONE (15:20)
[2016-12-18] MEDS ORDERED: Simethicone 80 mg Chewtab PO PRN (15:29)
[2016-12-18] MEDS ORDERED: Glucagon Recombinant 1 mg Inj IM PRN (15:32)
[2016-12-18] MEDS ORDERED: Dextrose 50% SYRINGE Inj (50 ml) IVP PRN (15:32)
--- NOTE | 2016-12-18 15:39 | CP.PCM.HP ---
History of Present Illness - History of Present Illness History of Present Illness: evaluated with attending 51yo F with PMHx bipolar, COPD, CHF, DM 2 and DVT upper extremity (Eliquis) admitted for respirtory insufficiency and CHF exacerbation. Pt transferred from TCU to [facility] ED for evaluation for incrasing SOB. Pt treated recently with IV abx during hospitalization for CAP. While in TCU, pt was getting IV lasix for diuresis per Nephro to improve hyponatremia and CHF exacerbation. Present on Admission - Present on Admission Any Indicators Present on Admission: Yes History of Uncontrolled Diabetes: Yes Review of Systems - Constitutional Constitutional: absent: Chills, Fever - Cardiovascular Cardiovascular: Pedal Edema. absent: Chest Pain - Respiratory Respiratory: Dyspnea - Gastrointestinal Gastrointestinal: absent: Abdominal Pain, Nausea, Vomiting - Genitourinary Genitourinary: absent: Dysuria, Hematuria - Musculoskeletal Musculoskeletal: absent: Back Pain - Neurological Neurological: absent: Headaches Past Patient History - Infectious Disease Hx of Infectious Diseases: None - Tetanus Immunizations Tetanus Immunization: Unknown - Past Medical History & Family History Past Medical History?: Yes - Past Social History Smoking Status: Former Smoker - CARDIAC Hx Congestive Heart Failure: Yes Hx Hypercholesterolemia: Yes Hx Hypertension: Yes Hx Pacemaker: No Hx Peripheral Edema: Yes - PULMONARY Hx Chronic Obstructive Pulmonary Disease (COPD): Yes Hx Pneumonia: Yes Hx Pulmonary Embolism: Yes - NEUROLOGICAL Hx Migraine: Yes Hx Seizures: No - HEENT Hx HEENT Problems: No - RENAL Hx Chronic Kidney Disease: No - ENDOCRINE/METABOLIC Hx Hypothyroidism: Yes - HEMATOLOGICAL/ONCOLOGICAL Hx Human Immunodeficiency Virus (HIV): No - INTEGUMENTARY Hx Dermatological Problems: No Hx Basil Cell: No Hx Eczema: No Hx Melanoma: No Hx Psoriasis: No Hx Squamous Cell: No - GASTROINTESTINAL Hx Crohn's Disease: No Hx Diverticulitis: Yes - GENITOURINARY/GYNECOLOGICAL Hx Sexually Transmitted Disorders: No - PSYCHIATRIC Hx Anxiety: Yes Hx Bipolar Disorder: Yes Hx Depression: Yes - SURGICAL HISTORY Hx Appendectomy: No Hx Cholecystectomy: Yes Hx Coronary Stent: No - ANESTHESIA Hx Anesthesia: Yes Hx Anesthesia Reactions: No Hx Malignant Hyperthermia: No Meds Allergies/Adverse Reactions: Allergies Allergy/AdvReac Type Severity Reaction Status Date / Time No Known Allergies Allergy Verified 12/18/16 12:08 Physical Exam - Constitutional Appears: Non-toxic - Head Exam Head Exam: ATRAUMATIC, NORMAL INSPECTION - Eye Exam Eye Exam: Normal appearance - ENT Exam ENT Exam: Mucous Membranes Moist - Neck Exam Neck exam: Positive for: Normal Inspection - Respiratory Exam Respiratory Exam: Rales (lower lung bases) - Cardiovascular Exam Cardiovascular Exam: REGULAR RHYTHM - GI/Abdominal Exam GI & Abdominal Exam: Soft - Extremities Exam Extremities exam: Positive for: pedal edema (3+ pitting) - Back Exam Back exam: NORMAL INSPECTION - Neurological Exam Neurological exam: Alert, Oriented x3 - Skin Skin Exam: Dry, Warm Results - Vital Signs Recent Vital Signs: Last Vital Signs Temp 97.6 F 12/18/16 12:08 Pulse 116 H 12/18/16 15:17 Resp 20 12/18/16 12:08 BP 130/75 12/18/16 14:21 Pulse Ox 99 12/18/16 15:17 - Labs Result Diagrams: 12/19/16 04:45 12/19/16 04:45 Assessment & Plan - Assessment and Plan (Free Text) Assessment: (1) respiratory insufficiency -CXR with pleural effusions and CHF exacerbation -will hold on abx for now as pt recieved IV abx for CAP and stopped while on TCU -pulm on board, appreciate input -NC prn -lasix (2) DVT upper ext -Eliquis 5mg BID -pulm on board, appreciate input (3) Diabetes mellitus type 2 in nonobese -metformin held for any further IV contrast to prevent PADMINI -januvia -insulin levemir 10u QHS -SSI -accuchecks (4) Abdominal discomfort -sucralfate (5) CHF (congestive heart failure) -IV lasix -nephro on board, appreciate input (6) Tachycardia -likely d/t breathing treament and anxiety -monitor VS (7) hyponatremia -AAOx3 -fluid restrict -diuresis with lasix -nephro on board, appreciate input (8) DVT prophylaxis -Eliquis -SCDs Decision To Admit - Pt Status Changed To: Hospital Disposition Of: Inpatient - Admit Certification Admit to Inpatient:: After my assessment, the patient will require hospitalization for at least two midnights. This is because of the severity of symptoms shown, intensity of services needed, and/or the medical risk in this patient being treated as an outpatient. - . Bed Request Type: Intensive Care Admitting Physician: Jovan Claros
[2016-12-18 15:50] LABS: VENOUS BLOOD GAS BASE EXCESS 0.7 mmol/L (0.0-2.0); VENOUS BLOOD GAS PCO2 40 mmHg (40-60); VENOUS BLOOD PH 7.41 (7.32-7.43)
[2016-12-18] MEDS ORDERED: Sodium Chloride 0.9% 1,000 ML IV STA (16:05)
--- NOTE | 2016-12-18 16:05 | CP.PCM.PN ---
Subjective - Date & Time of Evaluation Date of Evaluation: 12/18/16 Time of Evaluation: 16:05 - Subjective Subjective: renal follow up note Objective - Vital Signs/Intake and Output Vital Signs (last 24 hours): Temp Pulse Resp BP Pulse Ox 97.6 F 116 H 20 130/75 99 12/18/16 12:08 12/18/16 15:17 12/18/16 12:08 12/18/16 14:21 12/18/16 15:17 - Medications Medications: Current Medications Al Hydrox/Mg Hydrox/Simethicone (Maalox Plus 30 Ml) 30 ml PO Q6 PRN PRN Reason: Indigestion / Heartburn Albuterol Sulfate (Albuterol 0.083% Inhal Maria Guadalupe (2.5 Mg/3 Ml) Ud) 2.5 mg IH RQ6 [facility] Alprazolam (Xanax) 0.25 mg PO Q12 PRN PRN Reason: Anxiety Stop: 12/25/16 15:30 Apixaban (Eliquis) 5 mg PO BID [facility] PRN Reason: Protocol Aspirin (Aspirin Chewable) 81 mg PO DAILY [facility] Dextrose (Dextrose 50% Inj) 0 ml IVP STAT PRN; Protocol PRN Reason: Hypoglycemia Protocol Enalapril Maleate (Vasotec) 2.5 mg PO DAILY [facility] Furosemide (Lasix) 40 mg IVP DAILY [facility] Glucagon (Glucagen Diagnostic Kit) 0 mg IM STAT PRN; Protocol PRN Reason: Hypoglycemia Protocol Guaifenesin/Dextromethorphan (Robitussin Dm) 5 ml PO Q6H PRN PRN Reason: Cough Vancomycin HCl 1 gm/ Sodium (Chloride) 250 mls @ 166.667 mls/hr IVPB ONCE ONE Stop: 12/18/16 16:12 Last Admin: 12/18/16 15:36 Dose: 166.667 mls/hr Insulin Detemir (Levemir) 10 units SC HS [facility] Levothyroxine Sodium (Synthroid) 125 mcg PO ACB [facility] Metoprolol Tartrate (Lopressor) 25 mg PO Q12 [facility] Ondansetron HCl (Zofran Inj) 4 mg IVP Q4 PRN PRN Reason: Nausea/Vomiting Pantoprazole Sodium (Protonix Ec Tab) 20 mg PO DAILY [facility] Risperidone (Risperdal Oral Soln) 1 mg PO DAILY [facility] Simethicone (Mylicon Chew Tab) 80 mg PO QID PRN PRN Reason: Flatulence Sitagliptin Phosphate (Januvia) 100 mg PO DAILY [facility] Sucralfate (Carafate Oral Susp) 1 gm PO BID [facility]
[2016-12-18 16:56] LABS: RBC URINE 3 /hpf (0-3); URINE BACTERIA RARE (<OCC); URINE BILIRUBIN NEGATIVE (NEGATIVE); URINE BLOOD NEGATIVE (NEGATIVE); URINE COLOR YELLOW (YELLOW); URINE GLUCOSE (UA) NEG (Normal); URINE KETONE NEGATIVE (NEGATIVE); URINE LEUKOCYTE ESTERASE NEG Leu/uL (Negative); URINE PROTEIN NEGATIVE (NEGATIVE); URINE UROBILINOGEN 0.2-1.0 mg/dL (0.2-1.0); WBC URINE 1 /hpf (0-5)
--- NOTE | 2016-12-18 17:13 | CP.CCUPN ---
CCU Subjective - Physician Review Events Since Last Encounter (Free Text): 12/18/16 18:50 The Patient was seen and examined at the bedside, Medical records reviewed, all clinical/lab/hemodynamic/radiographic data were reviewed and management issues were discussed and formulated, Events reviewed Pain issues, skin care, head of the bed elevation, GI/DVT prophylaxis, glycemic control were addressed. Mrs. Massey is 51 Y/O F with multiple medical conditions including HTN, HLD, CHF, COPD, Diverticulitis, Deep Vein Thrombosis, HTN, Hypothyroidism, Migraine, Peripheral Edema, Pneumonia, Pulmonary Embolism, Bipolar Disorder and Anxiety/ Depression Who presents to ED from TCU where she was found to be tachycardic with SOB, she found to be in acute pulmonary edema and possible pneumonia Also, found to have elevated lactate, code sepsis called Pt had a recent admission for CHF with electrolyte derangement. In the ER she received Lasix 40mg IV and Insulin 6U for hyperglycemia Given the possibility of pneumonia, Blood Cultures ordered and she was given IV antibiotics and Gentle fluids initiated for resuscitation 12/18/16 18:51 Patient with hypervolemia, starting to have crackles on exam, Will discontinue IV Fluids Continue with diuresis Repeat labs monitor lactate, Na level closely CCU Objective - Vital Signs / Intake & Output Vital Signs (Last 4 hours): Vital Signs Temp Pulse Resp BP Pulse Ox 12/18/16 16:13 116 H 99 12/18/16 15:50 116 H 12/18/16 15:43 97.8 F 109 H 20 123/76 99 12/18/16 15:32 97.8 F 109 H 20 123/76 99 - Physical Exam Head: Positive for: Atraumatic, Normocephalic Pupils: Positive for: PERRL Extroacular Muscles: Positive for: EOMI Conjunctiva: Positive for: Normal Mouth: Positive for: Moist Mucous Membranes Neck: Positive for: Normal Range of Motion, Trachea Midline. Negative for: Meningeal Signs, MIDLINE TENDERNESS, Paraspinal Tenderness, JVD, Lymphadenopathy , Bruit, Other Respiratory/Chest: Positive for: Decreased Breath Sounds, Rales, Rhonchi. Negative for: Wheezes Cardiovascular: Positive for: Regular Rate and Rhythm, Normal S1, S2, Peripheal Pulses Present. Negative for: Murmurs, Irregular Rhythm, Tachycardic, Bradycardic Abdomen: Positive for: Normal Bowel Sounds. Negative for: Tenderness, Distention - Medications Active Medications: Active Medications Generic Name Dose Route Start Last Admin Trade Name Freq PRN Reason Stop Dose Admin Al Hydrox/Mg Hydrox/Simethicone 30 ml 12/18/16 15:29 Maalox Plus 30 Ml PO Q6 PRN Indigestion / Heartburn Albuterol Sulfate 2.5 mg 12/18/16 15:45 Albuterol 0.083% Inhal Maria Guadalupe (2.5 Mg/3 Ml) Ud IH RQ6 [facility] Alprazolam 0.25 mg 12/18/16 15:29 Xanax PO 12/25/16 15:30 Q12 PRN Anxiety Apixaban 5 mg 12/18/16 17:00 Eliquis PO BID [facility] Protocol Aspirin 81 mg 12/19/16 09:00 Aspirin Chewable PO DAILY [facility] Dextrose 0 ml 12/18/16 15:32 Dextrose 50% Inj IVP STAT PRN Hypoglycemia Protocol Protocol Enalapril Maleate 2.5 mg 12/19/16 09:00 Vasotec PO DAILY [facility] Furosemide 40 mg 12/19/16 09:00 Lasix IVP DAILY [facility] Glucagon 0 mg 12/18/16 15:32 Glucagen Diagnostic Kit IM STAT PRN Hypoglycemia Protocol Protocol Guaifenesin/Dextromethorphan 5 ml 12/18/16 15:29 Robitussin Dm PO Q6H PRN Cough Sodium Chloride 1,000 mls @ 100 mls/hr 12/18/16 16:05 Sodium Chloride 0.9% IV 12/19/16 02:04 .Q10H STA Insulin Detemir 10 units 12/18/16 22:00 Levemir SC HS [facility] Levothyroxine Sodium 125 mcg 12/19/16 07:30 Synthroid PO ACB [facility] Metoprolol Tartrate 25 mg 12/18/16 21:00 Lopressor PO Q12 [facility] Ondansetron HCl 4 mg 12/18/16 15:29 Zofran Inj IVP Q4 PRN Nausea/Vomiting Pantoprazole Sodium 20 mg 12/19/16 09:00 Protonix Ec Tab PO DAILY [facility] Risperidone 1 mg 12/19/16 09:00 Risperdal Oral Soln PO DAILY [facility] Simethicone 80 mg 12/18/16 15:29 Mylicon Chew Tab PO QID PRN Flatulence Sitagliptin Phosphate 100 mg 12/19/16 09:00 Januvia PO DAILY [facility] Sucralfate 1 gm 12/18/16 17:00 Carafate Oral Susp PO BID [facility] - Patient Studies Lab Studies: Lab Studies 12/18/16 12/18/16 12/18/16 Range/Units 16:35 15:40 15:35 pO2 34 (30-55) mm/Hg VBG pH 7.41 (7.32-7.43) VBG pCO2 40 (40-60) mmHg VBG HCO3 24.7 mmol/L VBG Total CO2 26.6 (22-28) mmol/L VBG O2 Sat (Calc) 69.6 H (40-65) % VBG Base Excess 0.7 (0.0-2.0) mmol/L VBG Potassium 4.1 (3.6-5.2) mmol/L Sodium 124.0 L (132-148) mmol/L Chloride 86.0 L (98-107) mmol/L Glucose 258 H (65-105) mg/dL Lactate 4.9 H* (0.7-2.1) mmol/L FiO2 21.0 % Crit Value Called To Gregg magallon Crit Value Called By 162 Crit Value Read Back Y Blood Gas Notified Time 1550 POC Glucose (mg/dL) 164 H (65-110) mg/dL Venous Blood Potassium 4.1 (3.6-5.2) mmol/L Urine Color Yellow (YELLOW) Urine Clarity Clear (Clear) Urine pH 5.0 (5.0-8.0) Ur Specific [place] 1.026 (1.003-1.030) Urine Protein Negative (NEGATIVE) mg/dL Urine Glucose (UA) Neg (Normal) mg/dL Urine Ketones Negative (NEGATIVE) mg/dL Urine Blood Negative (NEGATIVE) Urine Nitrate Negative (NEGATIVE) Urine Bilirubin Negative (NEGATIVE) Urine Urobilinogen 0.2-1.0 (0.2-1.0) mg/dL Ur Leukocyte Esterase Neg (Negative) Kristin/uL Urine RBC (Auto) 3 (0-3) /hpf Urine Microscopic WBC 1 (0-5) /hpf Ur Squamous Epith Cells 5 (0-5) /hpf Urine Bacteria Rare (<OCC) Laboratory Results - last 24 hr 12/18/16 12/18/16 12/18/16 15:35 15:40 16:35 pO2 34 VBG pH 7.41 VBG pCO2 40 VBG HCO3 24.7 VBG Total CO2 26.6 VBG O2 Sat (Calc) 69.6 H VBG Base Excess 0.7 VBG Potassium 4.1 Sodium 124.0 L Chloride 86.0 L Glucose 258 H Lactate 4.9 H* FiO2 21.0 Crit Value Called To Gregg magallon Crit Value Called By 162 Crit Value Read Back Y Blood Gas Notified Time 1550 POC Glucose (mg/dL) 164 H Venous Blood Potassium 4.1 Urine Color Yellow Urine Clarity Clear Urine pH 5.0 Ur Specific [place] 1.026 Urine Protein Negative Urine Glucose (UA) Neg Urine Ketones Negative Urine Blood Negative Urine Nitrate Negative Urine Bilirubin Negative Urine Urobilinogen 0.2-1.0 Ur Leukocyte Esterase Neg Urine RBC (Auto) 3 Urine Microscopic WBC 1 Ur Squamous Epith Cells 5 Urine Bacteria Rare Review of Systems - Constitutional Constitutional: absent: Fever, Chills, Sweats, Weakness, Malaise - Cardiovascular Cardiovascular: Dyspnea, Dyspnea on Exertion. absent: Chest Pain, Chest Pain at Rest, Chest Pain with Activity, Claudication, Diaphoresis - Respiratory Respiratory: Cough, Dyspnea, Dyspnea on Exertion. absent: Hemoptysis, Wheezing , Snoring, Stridor - Gastrointestinal Gastrointestinal: absent: As Per HPI, Abdominal Pain, Belching, Bloating, Change in Bowel Habits, Change in Stool Character, Coffee Ground Emesis, Constipation, Cramping, Diarrhea, Dyspepsia, Dysphagia, Early Satiety, Excessive Flatus, Fecal Incontinence, Heartburn, Hematemesis, Hematochezia, Loose Stools, Melena, Nausea, Odynophagia, Temesmus, Vomiting, Other, UNREMARKABLE Critical Care Progress Note - Extremities/Vascular Does the Patient have a Central Venous Catheter?: No Does the Patient need a Central Venous Catheter?: No Does the Patient have a Biggs Catheter?: No Does the Patient need a Biggs Catheter?: No - Nutrition Nutrition: Nutrition Category Date Time Status Consistent Carbohydrate [DIET] Diets 12/18/16 Dinner Active Assessment/Plan (1) Acute pulmonary edema Current Visit: Yes Status: Acute Comment: - IV Lasix - Serial Trop, EKG - Strict Is & Os - O2 supplement - BIPAP as needed (2) HCAP (healthcare-associated pneumonia) Current Visit: Yes Status: Acute Comment: As per S Sepsis O2 supplement BIPAP as needed Bronchodilator Nebs Aggressive Pulmonary toilets (3) Elevated lactic acid level Current Visit: Yes Status: Acute (4) Severe sepsis Current Visit: Yes Status: Acute Comment: Continue Antibiotics with IV Zosyn 3.375mg q6 and Vancomycin Follow up blood cultures Keep MAP 65-75 Frequent LABS/LYTES/CBC Follow up procalcitonin Trend WBC and temperature curve (5) Hyperglycemia Current Visit: Yes Status: Acute (6) Hyponatremia Current Visit: Yes Status: Acute (7) Bilateral pleural effusion Current Visit: No Status: Acute Priority: High - Assessment and Plan (Free Text) Assessment: Admit to the ICU for hemodynamic and respiratory monitoring TOTAL CRITICAL CARE TIME 54 MINUTES
--- NOTE | 2016-12-18 17:35 | PCM.SEPTIC ---
Sepsis Progress Note - Reassessment Type Date of Evaluation: 12/18/16 Time of Evaluation: 17:35 Reassessment Type: Non-invasive reassessment - Non Invasive Reassessment Were the most recent vital sign reviewed: Yes Vital Sign (Latest): Temp Pulse Resp BP Pulse Ox 97.8 F 116 H 20 123/76 99 12/18/16 15:43 12/18/16 16:13 12/18/16 15:43 12/18/16 15:43 12/18/16 16:13 Cardiovascular: Yes: Regular Rate, Rhythm, Chest Non Tender. No: Gallop, JVD, Murmur, Bradycardia, Tachycardia Respiratory: Yes: Decreased Breath Sounds, Crackles. No: Accessory Muscle Use, Rales, Rhonchi, Stridor, Wheezing Capillary Refill: Normal (Less than 2 sec) Pulses: Normal Radial, Normal Dorsalis Pedis, Normal Posterior Tibialis Skin: Normal Color, Warm
[2016-12-18] MEDS ORDERED: Pneumococcal 23-Valent Vaccine IM ONE (17:59)
[2016-12-18 21:16] LABS: ALB/GLOB RATIO 1.3 (1.0-2.1); ALKALINE PHOSPHATASE 486 U/L (38-126); ALT/SGPT 392 U/L (9-52); AST/SGOT 207 U/L (14-36); BILIRUBIN,TOTAL 1.3 mg/dl (0.2-1.3); BLOOD UREA NITROGEN 36 mg/dl (7-17); CARBON DIOXIDE 22 mmol/L (22-30); CHLORIDE 86 mmol/L (98-107); GFR AFRICAN-AMERICAN > 60; GLUCOSE,RANDOM 265 mg/dL (65-105); POTASSIUM 4.6 MMOL/L (3.6-5.0); TOTAL PROTEIN 6.4 G/DL (6.3-8.2)
[2016-12-18 21:34] LABS: SODIUM 119 mmol/l (132-148)
[2016-12-18] MEDS: Alum-Mag Hydrox-Simethicone Susp (30 mL) PO PRN (22:08)
[2016-12-18] MEDS: Insulin Detemir 100 Units/ml Inj SC SCH (22:10)
[2016-12-18 22:46] LABS: BASO # 0.1 K/uL (0.0-0.2); BASO % 0.5 % (0.0-2.0); EOS # 0.1 K/uL (0.0-0.7); EOS % 0.6 % (0.0-4.0); HEMATOCRIT 38.2 % (34.0-47.0); LYMPH % 27.6 % (20.0-40.0); MEAN CELL VOLUME 77.4 fl (81.0-99.0); MEAN CORPUSCULAR HEMOGLOBIN 24.6 pg (27.0-31.0); MEAN CORPUSCULAR HGB CONC 31.8 g/dL (33.0-37.0); MONO # 1.7 K/uL (0.0-0.8); MONO % 11.5 % (0.0-10.0); NEUT # 8.6 K/uL (1.8-7.0); NEUT % 59.8 % (50.0-75.0); NRBC % 0.3 % (0.0-0.0); RED CELL DISTRIBUTION WIDTH 21.2 % (11.5-14.5); WHITE BLOOD COUNT 14.4 K/uL (4.8-10.8)
[2016-12-19] MEDS: Albuterol 0.083% Inhal Sol (2.5 mg/3 mL) UD IH SCH ×4 (01:05→19:34)
[2016-12-19 05:14] LABS: HEMATOCRIT 39.2 % (34.0-47.0); MEAN CELL VOLUME 78.2 fl (81.0-99.0); MEAN CORPUSCULAR HEMOGLOBIN 24.9 pg (27.0-31.0); MEAN CORPUSCULAR HGB CONC 31.8 g/dL (33.0-37.0); RED CELL DISTRIBUTION WIDTH 21.2 % (11.5-14.5); WHITE BLOOD COUNT 17.9 K/uL (4.8-10.8)
[2016-12-19 05:27] LABS: ALB/GLOB RATIO 1.3 (1.0-2.1); ALKALINE PHOSPHATASE 511 U/L (38-126); ALT/SGPT 369 U/L (9-52); AST/SGOT 183 U/L (14-36); BILIRUBIN,TOTAL 2.1 mg/dl (0.2-1.3); BLOOD UREA NITROGEN 39 mg/dl (7-17); CALCIUM 9.3 mg/dL (8.4-10.2); CARBON DIOXIDE 28 mmol/L (22-30); CHLORIDE 85 mmol/L (98-107); GFR AFRICAN-AMERICAN > 60; GLUCOSE,RANDOM 262 mg/dL (65-105); SODIUM 123 mmol/l (132-148); TOTAL PROTEIN 6.5 G/DL (6.3-8.2)
[2016-12-19] MEDS: Insulin Lispro (humaLOG) 100 Units/ml Inj SC SCH ×5 (06:38→21:49)
--- NOTE | 2016-12-19 07:05 | CP.PCM.PN ---
Subjective - Date & Time of Evaluation Date of Evaluation: 12/19/16 Time of Evaluation: 07:05 - Subjective Subjective: evaluated with attending. no overnight events. SOB improved. LE swelling improving. Denies chest pain. minimal abd pain. Tolerating PO. Objective - Vital Signs/Intake and Output Vital Signs (last 24 hours): Temp Pulse Resp BP Pulse Ox 97 F L 106 H 24 98/71 L 96 12/19/16 06:00 12/19/16 06:00 12/19/16 06:00 12/19/16 06:00 12/19/16 06:00 Intake and Output: 12/19/16 12/19/16 06:59 18:59 Intake Total 555 Output Total 650 Balance -95 - Medications Medications: Current Medications Al Hydrox/Mg Hydrox/Simethicone (Maalox Plus 30 Ml) 30 ml PO Q6 PRN PRN Reason: Indigestion / Heartburn Last Admin: 12/18/16 22:08 Dose: 30 ml Albuterol Sulfate (Albuterol 0.083% Inhal Maria Guadalupe (2.5 Mg/3 Ml) Ud) 2.5 mg IH RQ6 [facility] Last Admin: 12/19/16 01:05 Dose: Not Given Alprazolam (Xanax) 0.25 mg PO Q12 PRN PRN Reason: Anxiety Stop: 12/25/16 15:30 Apixaban (Eliquis) 5 mg PO BID [facility] PRN Reason: Protocol Last Admin: 12/18/16 18:03 Dose: 5 mg Aspirin (Aspirin Chewable) 81 mg PO DAILY [facility] Dextrose (Dextrose 50% Inj) 0 ml IVP STAT PRN; Protocol PRN Reason: Hypoglycemia Protocol Enalapril Maleate (Vasotec) 2.5 mg PO DAILY [facility] Furosemide (Lasix) 40 mg IVP DAILY [facility] Glucagon (Glucagen Diagnostic Kit) 0 mg IM STAT PRN; Protocol PRN Reason: Hypoglycemia Protocol Guaifenesin/Dextromethorphan (Robitussin Dm) 5 ml PO Q6H PRN PRN Reason: Cough Insulin Detemir (Levemir) 10 units SC HS [facility] Last Admin: 12/18/16 22:10 Dose: 10 u Insulin Human Lispro (Humalog) 0 units SC ACHS [facility] PRN Reason: Protocol Last Admin: 12/19/16 06:38 Dose: 3 u Levothyroxine Sodium (Synthroid) 125 mcg PO ACB [facility] Last Admin: 12/19/16 06:30 Dose: 125 mcg Metoprolol Tartrate (Lopressor) 25 mg PO Q12 [facility] Last Admin: 12/18/16 22:08 Dose: 25 mg Ondansetron HCl (Zofran Inj) 4 mg IVP Q4 PRN PRN Reason: Nausea/Vomiting Last Admin: 12/19/16 02:00 Dose: 4 mg Pantoprazole Sodium (Protonix Ec Tab) 20 mg PO DAILY [facility] Risperidone (Risperdal Oral Soln) 1 mg PO DAILY [facility] Simethicone (Mylicon Chew Tab) 80 mg PO QID PRN PRN Reason: Flatulence Last Admin: 12/19/16 01:22 Dose: 80 mg Sitagliptin Phosphate (Januvia) 100 mg PO DAILY [facility] Sucralfate (Carafate Oral Susp) 1 gm PO BID [facility] - Labs Labs: 12/19/16 04:45 12/19/16 04:45 - Constitutional Appears: Non-toxic - Head Exam Head Exam: NORMAL INSPECTION - Eye Exam Eye Exam: Normal appearance - ENT Exam ENT Exam: Mucous Membranes Moist - Neck Exam Neck Exam: Normal Inspection - Respiratory Exam Respiratory Exam: Clear to Ausculation Bilateral. absent: Rales - Cardiovascular Exam Cardiovascular Exam: REGULAR RHYTHM - GI/Abdominal Exam GI & Abdominal Exam: Soft - Extremities Exam Extremities Exam: Pedal Edema (2+ pitting) - Back Exam Back Exam: NORMAL INSPECTION - Neurological Exam Neurological Exam: Alert, Oriented x3 - Skin Skin Exam: Dry, Warm Assessment and Plan - Assessment and Plan (Free Text) Assessment: (1) respiratory insufficiency -CXR with pleural effusions and congestion. 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
[2016-12-19] MEDS ORDERED: Levothyroxine 125 MCG TAB PO SCH (07:30)
[2016-12-19] MEDS: Sucralfate 1 gm/10 ml Oral Susp UD PO SCH ×2 (08:27→16:02)
[2016-12-19] MEDS: Pantoprazole 20 mg EC Tab PO SCH (08:30)
--- NOTE | 2016-12-19 09:04 | CP.CCUPN ---
CCU Subjective - Physician Review Subjective (Free Text): [employer] MEDICAL ASSISTANT PROGRESS NOTE Patient examined, interim events reviewed: Awake and appropriately responsive, no distress, no new complaints noted, SPO2 97% on nasal cannula, denies any chest discomfort, already OOB to chair with exertional dyspnea and desaturation to 88% while getting OOB. Vitals: afebrile, relatively hypothermic with most temps 97F, BP 100/70, HR 110 , RR 22. SPo2 97% on 2LPM NC. I/Os last 12H= +0.3L. ROS: All pertinent Nursing notes, 10+ systems review unobtainable: otherwise as above. PMSFH: No other new pertinent information relative to current medical problems; otherwise as noted in Nursing documentation. EXAM- HEENT: no icterus, pupils midline, equal and reactive, no nystagmus NECK: no visible JVD, supple, carotids equal upstroke bilat/no bruits CHEST: decreased BS bases, no wheezes audible. HEART: regular, distant, tachy S1S2, no murmur audible, no rubs. ABD: soft, no increased distention, no tenderness, no guarding; no HSM. BS hypoactive. EXT: ++LE edema, no peripheral/ digital cyanosis, no calf tenderness or palpable cords, distal pulses intact and symmetrical NEURO: no gross focal motor deficits SKIN: no rashes LABS: Lactate = 3.3 yesterday at 22:08 WBC= 17.9 HGB= 12.5 PLTs = 331K PT/INR/PTT= 30.4/29.2/44.2 ABG= 7.15/27/100 Na= 123 K= 5.0 HCO3= 28 BUN/Cr= 39/0.9 BS= 262 AST / ALT/ Alk Phos = 183 / 369/ 511 CXR: significant bilat effusions, cannot r/o occult underlying infiltrates. ( my interp) Assessment: 1. SIRS, no definitive documented site of infection, no Severe Sepsis evident. Occult Lactate elevation noted on admission, no repeat levels ordered if Sepsis suspected. No hypotension noted on admission when lactate level was obtained. Lactic Acidosis 2 Hypoxemia 2. Bilat Effusions, h/o Cardiomyopathy, r/o AMI/SubAcute MA 3. Hyponatremia 2 Cardiomyopathy / CHF 4. Hypothyroidism 5. Uncontrolled DM II PLAN: 1. No need for any assisted breathing support at this time. Stable oxygenation on nasal cannula oxygen. 2. Repeat Lactate level now. 3. Repeat ECHO: last ECHO from 07/2015 reviewed: EF 25%. Continue ACEi, Eliquis, BBs. 4. Lasix as tolerated. Increase dose and to BID dosing if BP tolerates. 5. Empiric abx coverage administered in ER noted, no orders for continuation in ICU. Get CT Chest to assess for extent of effusions and if amenable to drainage; and to assess for any underlying infiltrates. Procalcitonin pending. 6. Check GGT, get abdominal US if elevated. 7. Assess TFTs.
[2016-12-19 12:13] LABS: THYROID STIMULATING HORMONE 5.42 mIU/ML (0.46-4.68)
--- NOTE | 2016-12-19 15:18 | PQF GENQUE ---
Dr. Claros, Respiratory failure, Septic shock and Severe Sepsis :ruled in or ruled out? these diagnoses are listed in the ER MD and or the first Critical Care note and then the diagnoses are dropped OR: Other explanation of clinical findings ER MD note; presents to ED from TCU where she was found to be tachycardic with SOB; PE:Respiratory: Positive for: Decreased Breath Sounds, Rales, Respiratory Distress; while investigating possible sepsis, elevated lactate 4.9 triggered code sepsis response. NS bolus of 30ml/kg over 30min is contraindicated in patient due to profound hyponatremia and risk of irreversible CPM in addition to severe CHF. Blood Cultures ordered. Repeat lactate 3hrs in ICU. Gentle fluids initiated for resuscitation in already hypervolemic patient. D/w Dr Jones ICU. Clinical Impression: CHF exacerbation, Hyponatremia, Hyperglycemia, Respiratory failure, Pleural effusion, Septic shock 12/18 Critical Care Note: 1) Acute pulmonary edema Current Visit: Yes Status: Acute Comment: - IV Lasix - Serial Trop, EKG - Strict Is Os - O2 supplement - BIPAP as needed (2) HCAP (healthcare-associated pneumonia) Current Visit: Yes Status: Acute Comment: As per S Sepsis O2 supplement BIPAP as needed Bronchodilator Nebs Aggressive Pulmonary toilets (3) Elevated lactic acid level Current Visit: Yes Status: Acute (4) Severe sepsis Current Visit: Yes Status: Acute Comment: Continue Antibiotics with IV Zosyn 3.375mg q6 and Vancomycin Follow up blood cultures Keep MAP 65-75 Frequent LABS/LYTES/CBC Follow up procalcitonin Trend WBC and temperature curve H and P: diagnoses include: 1) respiratory insufficiency -CXR with pleural effusions and CHF exacerbation -will hold on abx for now as pt recieved IV abx for CAP and stopped while on TCU -NC prn -lasix (2) DVT upper ext -Eliquis 5mg BID -pulm on board, appreciate input (5) CHF (congestive heart failure) - IV lasix (6) Tachycardia -likely d/t breathing treament and anxiety -monitor VS 12/19 Critical Care note: SPO2 97% on nasal cannula ,denies any chest discomfort , already OOB to chair with exertional dyspnea and desaturation to 88% while getting OOB. Vitals: afebrile, relatively hypothermic Assessment: 1. SIRS, no definitive documented site of infection, no Severe Sepsis evident. Occult Lactate elevation noted on admission, no repeat levels ordered if Sepsis suspected. No hypotension noted on admission when lactate level was obtained. Lactic Acidosis 2 Hypoxemia 2. Bilat Effusions, h/o Cardiomyopathy, r/o AMI/ SubAcute [place] 3. Hyponatremia 2 Cardiomyopathy / CHF ---Empiric abx coverage administered in ER noted, no orders for continuation in ICU. Get CT Chest to assess for extent of effusions and if amenable to drainage; and to assess for any underlying infiltrates. Procalcitonin pending. Pulse;119->109->109->116->116->111->119->106->120 Respirations:20->18->24->17->24-.26 WBC:13.8->14.4->17.9 Venous blood gas: Lactate:4.9 Lactic Acid: 3.3 -.2.8 This form is a permanent part of the medical record Clarification of your documentation is requested to better reflect the severity of illness and intensity of treatment of your patient. Indicators present [] Specify: [] [] Specify: [] [] Specify: [] [] Specify: [] Location in the medical record that reflects the above clinical findings: [] Treatment Provided: [] PHYSICIAN'S RESPONSE Based on your medical judgment of the clinical indicators outlined above please clarify the following: [] Practitioner response [] If unable to determine, please check the box, sign and date. Present On Admission (POA) Indicator: [] Present at the time of admission [] Not present at the time of admission [] Clinically Undetermined In responding to this query, please exercise your independent professional judgment. The fact that a question is asked does not imply that any particular answer is desired or expected. Thank you for your clarification on this documentation. If you have any questions please call. * Thank you, Sara Reese RN BSN ext. #[phone] MTDD
--- NOTE | 2016-12-19 15:22 | PQF GENQUE ---
Dr. Claros, Please specify the type of heart failure exacerbation in your progress notes: if known Combined systolic and diastolic Diastolic Systolic Other (please specify) OR: Unable to determine OR: Unknown This form is a permanent part of the medical record Clarification of your documentation is requested to better reflect the severity of illness and intensity of treatment of your patient. Indicators present [] Specify: [] [] Specify: [] [] Specify: [] [] Specify: [] Location in the medical record that reflects the above clinical findings: [] Treatment Provided: [] PHYSICIAN'S RESPONSE Based on your medical judgment of the clinical indicators outlined above please clarify the following: [] Practitioner response [] If unable to determine, please check the box, sign and date. Present On Admission (POA) Indicator: [] Present at the time of admission [] Not present at the time of admission [] Clinically Undetermined In responding to this query, please exercise your independent professional judgment. The fact that a question is asked does not imply that any particular answer is desired or expected. Thank you for your clarification on this documentation. If you have any questions please call. * Thank you, Sara Reese RN BSN ext. #[phone] MTDD
[2016-12-19] MEDS: Piperacillin/Tazobact 3.375 GM in Sodium Chloride 0.9% 100 ML IVPB SCH ×2 (16:05→21:53)
--- NOTE | 2016-12-19 16:50 | CP.PCM.CON ---
History of Present Illness - History of Present Illness History of Present Illness: 51 y/o female with Hx/o CHF, COPD,DM 11, UE DVT, Pulmonary embolism, HLD Hypothyroidism was initially admitted to TCU where she had acute onset of pulmonary edema & was sent to ED for evaluation Was adm to ICU for acute pulmonary edema. Renal consult is requested for evaluation of hyponatremia Past Patient History - Infectious Disease Hx of Infectious Diseases: None - Tetanus Immunizations Tetanus Immunization: Unknown - Past Medical History & Family History Past Medical History?: Yes - Past Social History Smoking Status: Former Smoker - CARDIAC Hx Congestive Heart Failure: Yes Hx Hypercholesterolemia: Yes Hx Hypertension: Yes Hx Pacemaker: No Hx Peripheral Edema: Yes - PULMONARY Hx Chronic Obstructive Pulmonary Disease (COPD): Yes Hx Pneumonia: Yes Hx Pulmonary Embolism: Yes - NEUROLOGICAL Hx Migraine: Yes Hx Seizures: No - HEENT Hx HEENT Problems: No - RENAL Hx Chronic Kidney Disease: No - ENDOCRINE/METABOLIC Hx Hypothyroidism: Yes - HEMATOLOGICAL/ONCOLOGICAL Hx Human Immunodeficiency Virus (HIV): No - INTEGUMENTARY Hx Dermatological Problems: No Hx Basil Cell: No Hx Eczema: No Hx Melanoma: No Hx Psoriasis: No Hx Squamous Cell: No - GASTROINTESTINAL Hx Crohn's Disease: No Hx Diverticulitis: Yes - GENITOURINARY/GYNECOLOGICAL Hx Sexually Transmitted Disorders: No - PSYCHIATRIC Hx Anxiety: Yes Hx Bipolar Disorder: Yes Hx Depression: Yes - SURGICAL HISTORY Hx Appendectomy: No Hx Cholecystectomy: Yes Hx Coronary Stent: No - ANESTHESIA Hx Anesthesia: Yes Hx Anesthesia Reactions: No Hx Malignant Hyperthermia: No Meds Allergies/Adverse Reactions: Allergies Allergy/AdvReac Type Severity Reaction Status Date / Time No Known Allergies Allergy Verified 12/18/16 12:08 - Medications Medications: Current Medications Al Hydrox/Mg Hydrox/Simethicone (Maalox Plus 30 Ml) 30 ml PO Q6 PRN PRN Reason: Indigestion / Heartburn Last Admin: 12/18/16 22:08 Dose: 30 ml Albuterol Sulfate (Albuterol 0.083% Inhal Maria Guadalupe (2.5 Mg/3 Ml) Ud) 2.5 mg IH RQ6 VINICIUS Last Admin: 12/19/16 13:49 Dose: Not Given Alprazolam (Xanax) 0.25 mg PO Q12 PRN PRN Reason: Anxiety Stop: 12/25/16 15:30 Last Admin: 12/19/16 08:25 Dose: 0.25 mg Apixaban (Eliquis) 5 mg PO BID VINICIUS PRN Reason: Protocol Last Admin: 12/19/16 16:02 Dose: 5 mg Aspirin (Aspirin Chewable) 81 mg PO DAILY [facility] Last Admin: 12/19/16 08:27 Dose: 81 mg Dextrose (Dextrose 50% Inj) 0 ml IVP STAT PRN; Protocol PRN Reason: Hypoglycemia Protocol Enalapril Maleate (Vasotec) 2.5 mg PO DAILY [facility] Last Admin: 12/19/16 08:30 Dose: 2.5 mg Furosemide (Lasix) 40 mg IVP BID [facility] Stop: 12/22/16 17:01 Last Admin: 12/19/16 16:08 Dose: 40 mg Glucagon (Glucagen Diagnostic Kit) 0 mg IM STAT PRN; Protocol PRN Reason: Hypoglycemia Protocol Guaifenesin/Dextromethorphan (Robitussin Dm) 5 ml PO Q6H PRN PRN Reason: Cough Vancomycin HCl 750 mg/ Sodium (Chloride) 250 mls @ 166.667 mls/hr IVPB DAILY [facility] Last Admin: 12/19/16 16:03 Dose: 166.667 mls/hr Piperacillin Sod/Tazobactam (Sod 3.375 gm/ Sodium Chloride) 100 mls @ 100 mls/ hr IVPB Q6 [facility] Last Admin: 12/19/16 16:05 Dose: 100 mls/hr Insulin Detemir (Levemir) 10 units SC HS [facility] Last Admin: 12/18/16 22:10 Dose: 10 u Insulin Human Lispro (Humalog) 0 units SC ACHS [facility] PRN Reason: Protocol Last Admin: 12/19/16 16:00 Dose: 5 u Insulin Human Lispro (Humalog) 3 units SC AC [facility] Last Admin: 12/19/16 16:00 Dose: 3 unit Levothyroxine Sodium (Synthroid) 125 mcg PO ACB [facility] Last Admin: 12/19/16 06:30 Dose: 125 mcg Metformin HCl (Glucophage) 1,000 mg PO BIDWM [facility] Last Admin: 12/19/16 16:02 Dose: 1,000 mg Metoprolol Tartrate (Lopressor) 25 mg PO Q12 [facility] Last Admin: 12/19/16 08:29 Dose: 25 mg Ondansetron HCl (Zofran Inj) 4 mg IVP Q4 PRN PRN Reason: Nausea/Vomiting Last Admin: 12/19/16 02:00 Dose: 4 mg Pantoprazole Sodium (Protonix Ec Tab) 20 mg PO DAILY [facility] Last Admin: 12/19/16 08:30 Dose: 20 mg Risperidone (Risperdal Oral Soln) 1 mg PO DAILY [facility] Last Admin: 12/19/16 08:30 Dose: 1 mg Simethicone (Mylicon Chew Tab) 80 mg PO QID PRN PRN Reason: Flatulence Last Admin: 12/19/16 01:22 Dose: 80 mg Sitagliptin Phosphate (Januvia) 100 mg PO DAILY [facility] Last Admin: 12/19/16 15:57 Dose: Not Given Sucralfate (Carafate Oral Susp) 1 gm PO BID [facility] Last Admin: 12/19/16 16:02 Dose: 1 gm Physical Exam - Constitutional Appears: No Acute Distress Additional comments: Alert Does not appear in any repiratory distress - Head Exam Head Exam: ATRAUMATIC, NORMOCEPHALIC - Eye Exam Additional comments: No scleral icterus - ENT Exam ENT Exam: Mucous Membranes Moist - Neck Exam Additional comments: neck supple - Respiratory Exam Additional comments: Decreased BS at bases. No crackled - Cardiovascular Exam Cardiovascular Exam: REGULAR RHYTHM - GI/Abdominal Exam GI & Abdominal Exam: Soft Additional comments: No tenderness - Rectal Exam Rectal Exam: Deferred - Extremities Exam Additional comments: 2+ bipedal edema Results - Vital Signs Recent Vital Signs: Last Vital Signs Temp 97.5 F L 12/19/16 16:00 Pulse 106 H 12/19/16 16:00 Resp 15 12/19/16 16:00 BP 112/72 12/19/16 16:08 Pulse Ox 98 12/19/16 16:00 - Labs Result Diagrams: 12/19/16 04:45 12/19/16 04:45 Labs: Laboratory Results - last 24 hr 12/18/16 12/18/16 12/18/16 15:40 20:45 20:57 WBC 14.4 H RBC 4.93 Hgb 12.1 Hct 38.2 MCV 77.4 L MCH 24.6 L MCHC 31.8 L RDW 21.2 H Plt Count 334 MPV 10.0 Neut % (Auto) 59.8 Lymph % (Auto) 27.6 [place] % (Auto) 11.5 H Eos % (Auto) 0.6 Baso % (Auto) 0.5 Neut # 8.6 H Lymph # 4.0 [place] # 1.7 H Eos # 0.1 Baso # 0.1 Sodium 119 L* Potassium 4.6 Chloride 86 L Carbon Dioxide 22 Anion Gap 16 BUN 36 H Creatinine 0.7 Est GFR ( Amer) > 60 Est GFR (Non-Af Amer) > 60 POC Glucose (mg/dL) Random Glucose 265 H Lactic Acid Calcium 9.0 Total Bilirubin 1.3 AST 207 H ALT 392 H Alkaline Phosphatase 486 H Troponin I < 0.0120 Total Protein 6.4 Albumin 3.6 Globulin 2.7 Albumin/Globulin Ratio 1.3 Free T4 TSH 3rd Generation Urine Color Yellow Urine Clarity Clear Urine pH 5.0 Ur Specific [place] 1.026 Urine Protein Negative Urine Glucose (UA) Neg Urine Ketones Negative Urine Blood Negative Urine Nitrate Negative Urine Bilirubin Negative Urine Urobilinogen 0.2-1.0 Ur Leukocyte Esterase Neg Urine RBC (Auto) 3 Urine Microscopic WBC 1 Ur Squamous Epith Cells 5 Urine Bacteria Rare 12/18/16 12/18/16 12/19/16 21:55 22:08 04:45 WBC 17.9 H RBC 5.01 Hgb 12.5 Hct 39.2 MCV 78.2 L MCH 24.9 L MCHC 31.8 L RDW 21.2 H Plt Count 331 MPV Neut % (Auto) Lymph % (Auto) [place] % (Auto) Eos % (Auto) Baso % (Auto) Neut # Lymph # [place] # Eos # Baso # Sodium Potassium Chloride Carbon Dioxide Anion Gap BUN Creatinine Est GFR ( Amer) Est GFR (Non-Af Amer) POC Glucose (mg/dL) 269 H Random Glucose Lactic Acid 3.3 H Calcium Total Bilirubin AST ALT Alkaline Phosphatase Troponin I Total Protein Albumin Globulin Albumin/Globulin Ratio Free T4 TSH 3rd Generation Urine Color Urine Clarity Urine pH Ur Specific [place] Urine Protein Urine Glucose (UA) Urine Ketones Urine Blood Urine Nitrate Urine Bilirubin Urine Urobilinogen Ur Leukocyte Esterase Urine RBC (Auto) Urine Microscopic WBC Ur Squamous Epith Cells Urine Bacteria 12/19/16 12/19/16 12/19/16 04:45 04:52 11:13 WBC RBC Hgb Hct MCV MCH MCHC RDW Plt Count MPV Neut % (Auto) Lymph % (Auto) [place] % (Auto) Eos % (Auto) Baso % (Auto) Neut # Lymph # [place] # Eos # Baso # Sodium 123 L Potassium 5.0 Chloride 85 L Carbon Dioxide 28 Anion Gap 15 BUN 39 H Creatinine 0.9 Est GFR ( Amer) > 60 Est GFR (Non-Af Amer) > 60 POC Glucose (mg/dL) 266 H 391 H Random Glucose 262 H Lactic Acid Calcium 9.3 Total Bilirubin 2.1 H AST 183 H ALT 369 H Alkaline Phosphatase 511 H Troponin I Total Protein 6.5 Albumin 3.7 Globulin 2.8 Albumin/Globulin Ratio 1.3 Free T4 TSH 3rd Generation Urine Color Urine Clarity Urine pH Ur Specific [place] Urine Protein Urine Glucose (UA) Urine Ketones Urine Blood Urine Nitrate Urine Bilirubin Urine Urobilinogen Ur Leukocyte Esterase Urine RBC (Auto) Urine Microscopic WBC Ur Squamous Epith Cells Urine Bacteria 12/19/16 12/19/16 12/19/16 11:32 11:32 12:00 WBC RBC Hgb Hct MCV MCH MCHC RDW Plt Count MPV Neut % (Auto) Lymph % (Auto) [place] % (Auto) Eos % (Auto) Baso % (Auto) Neut # Lymph # [place] # Eos # Baso # Sodium Potassium Chloride Carbon Dioxide Anion Gap BUN Creatinine Est GFR ( Amer) Est GFR (Non-Af Amer) POC Glucose (mg/dL) Random Glucose Lactic Acid 2.8 H Calcium Total Bilirubin AST ALT Alkaline Phosphatase Troponin I Total Protein Albumin Globulin Albumin/Globulin Ratio Free T4 2.18 TSH 3rd Generation 5.42 H Urine Color Urine Clarity Urine pH Ur Specific [place] Urine Protein Urine Glucose (UA) Urine Ketones Urine Blood Urine Nitrate Urine Bilirubin Urine Urobilinogen Ur Leukocyte Esterase Urine RBC (Auto) Urine Microscopic WBC Ur Squamous Epith Cells Urine Bacteria 12/19/16 15:41 WBC RBC Hgb Hct MCV MCH MCHC RDW Plt Count MPV Neut % (Auto) Lymph % (Auto) [place] % (Auto) Eos % (Auto) Baso % (Auto) Neut # Lymph # [place] # Eos # Baso # Sodium Potassium Chloride Carbon Dioxide Anion Gap BUN Creatinine Est GFR ( Amer) Est GFR (Non-Af Amer) POC Glucose (mg/dL) 384 H Random Glucose Lactic Acid Calcium Total Bilirubin AST ALT Alkaline Phosphatase Troponin I Total Protein Albumin Globulin Albumin/Globulin Ratio Free T4 TSH 3rd Generation Urine Color Urine Clarity Urine pH Ur Specific [place] Urine Protein Urine Glucose (UA) Urine Ketones Urine Blood Urine Nitrate Urine Bilirubin Urine Urobilinogen Ur Leukocyte Esterase Urine RBC (Auto) Urine Microscopic WBC Ur Squamous Epith Cells Urine Bacteria Assessment & Plan - Assessment and Plan (Free Text) Assessment: Hyponatremia most likely dilutional due to fluid overload Serum sodium has improved CHF with B/L pleural effusions DM11 Hypothyroidism Hx/o PE Plan: Control CHF Continue with IV lasix Urine & serum osmol. Urine sodium
--- NOTE | 2016-12-19 17:00 | CARD ---
APPROVED REPORT EKG Measurement Heart [id number] <Conclusion> Sinus tachycardia Left bundle branch block Abnormal ECG
[2016-12-19 18:49] LABS: RBC URINE 1 /hpf (0-3); URINE BACTERIA RARE (<OCC); URINE BILIRUBIN NEGATIVE (NEGATIVE); URINE BLOOD NEGATIVE (NEGATIVE); URINE COLOR STRAW (YELLOW); URINE GLUCOSE (UA) >=500 mg/dL (Normal); URINE KETONE NEGATIVE (NEGATIVE); URINE LEUKOCYTE ESTERASE SMALL Leu/uL (Negative); URINE PROTEIN NEGATIVE (NEGATIVE); URINE UROBILINOGEN 0.2-1.0 mg/dL (0.2-1.0); WBC URINE 8 /hpf (0-5)
--- NOTE | 2016-12-19 20:12 | CP.PCM.CON ---
History of Present Illness - History of Present Illness History of Present Illness: Pulmonary consult on 12/19/16 for a 51 y/o F, been Tx by me for Respiratory Insufficiency, COPD, b/l Pleural effusion, Atelectasis b/l lungs. Pt with Hx of Multiple chronic medical conditions. Initially, admitted to [facility] on 12/09/16 for CHF Exacerbation, Respiratory Insufficiency, COPD, DM with Hyperglycemia. After improvement, on 12/14/16, Pt was discharged to TCU for rehab, PT. While at that unit, on 12/18/16, Pt developed Tachycardia with rapid HR up to 120's on exertion, no CP, c/o of unable to breath,SOB, O2 75% on room air, no relief of symptoms, associated to dizziness, and worsening symptom of b/l L/E + 4 edema, Anxiety. There after, same day, Pt was transferred to ER for evaluation and after been evaluated, due to tachycardia, appearance of CXR and severe electrolyte derangement, Pt was admitted to ICU for further care management. Pt denied: fever, chills, CP, bloody cough, LOC, numbness, abdominal pain, n/v/d , neck or shoulder pain, lesions, rash, sick contact. PMHx: CHF, HTN, R SCV DVT, COPD, Hypercholesterolemia, Bipolar Disorder, Hypothyroidism, Diverticulitis, Lymphoma, Anxiety, Depression, Migraine. CXR in ER shows: Mild pulmonary vascular congestive changes with b/l lower lobe alveolar type infiltrates and /or atelectasis with large b/l effusion R>L. Review of Systems - EENT Eyes: Other (egative) Ears: Other (negative) Nose/Mouth/Throat: Other (negative) - Cardiovascular Cardiovascular: Dyspnea, Dyspnea on Exertion, Pedal Edema, Rapid Heart Rate - Respiratory Respiratory: Cough, Dyspnea, Dyspnea on Exertion - Gastrointestinal Gastrointestinal: Other (negative) - Genitourinary Genitourinary: Other (negative) - Musculoskeletal Musculoskeletal: Other (negative) - Integumentary Integumentary: Other (negative) - Neurological Neurological: Dizziness - Psychiatric Psychiatric: Anxiety - Endocrine Endocrine: Other (negative) - Hematologic/Lymphatic Hematologic: Other (negative) Past Patient History - Infectious Disease Hx of Infectious Diseases: None - Tetanus Immunizations Tetanus Immunization: Unknown - Past Medical History & Family History Past Medical History?: Yes - Past Social History Smoking Status: Former Smoker Alcohol: None Drugs: Denies - CARDIAC Hx Cardiac Disorders: Yes Hx Congestive Heart Failure: Yes Hx Hypercholesterolemia: Yes Hx Hypertension: Yes Hx Pacemaker: No Hx Peripheral Edema: Yes - PULMONARY Hx Respiratory Disorders: Yes Hx Chronic Obstructive Pulmonary Disease (COPD): Yes Hx Pneumonia: Yes Hx Pulmonary Embolism: Yes - NEUROLOGICAL Hx Neurological Disorder: Yes Hx Migraine: Yes Hx Seizures: No - HEENT Hx HEENT Problems: No - RENAL Hx Chronic Kidney Disease: No - ENDOCRINE/METABOLIC Hx Endocrine Disorders: Yes Hx Hypothyroidism: Yes - HEMATOLOGICAL/ONCOLOGICAL Hx Blood Disorders: Yes Hx Human Immunodeficiency Virus (HIV): No Hx Lymphoma: Yes - INTEGUMENTARY Hx Dermatological Problems: No Hx Basil Cell: No Hx Eczema: No Hx Melanoma: No Hx Psoriasis: No Hx Squamous Cell: No - MUSCULOSKELETAL/RHEUMATOLOGICAL Hx Musculoskeletal Disorders: Yes Hx Back Pain: Yes - GASTROINTESTINAL Hx Crohn's Disease: No Hx Diverticulitis: Yes - GENITOURINARY/GYNECOLOGICAL Hx Sexually Transmitted Disorders: No - PSYCHIATRIC Hx Anxiety: Yes Hx Bipolar Disorder: Yes Hx Depression: Yes - SURGICAL HISTORY Hx Appendectomy: No Hx Cholecystectomy: Yes Hx Coronary Stent: No - ANESTHESIA Hx Anesthesia: Yes Hx Anesthesia Reactions: No Hx Malignant Hyperthermia: No Meds Allergies/Adverse Reactions: Allergies Allergy/AdvReac Type Severity Reaction Status Date / Time No Known Allergies Allergy Verified 12/18/16 12:08 - Medications Medications: Current Medications Al Hydrox/Mg Hydrox/Simethicone (Maalox Plus 30 Ml) 30 ml PO Q6 PRN PRN Reason: Indigestion / Heartburn Last Admin: 12/18/16 22:08 Dose: 30 ml Albuterol Sulfate (Albuterol 0.083% Inhal Maria Guadalupe (2.5 Mg/3 Ml) Ud) 2.5 mg IH RQ6 [facility] Last Admin: 12/19/16 19:34 Dose: Not Given Alprazolam (Xanax) 0.25 mg PO Q12 PRN PRN Reason: Anxiety Stop: 12/25/16 15:30 Last Admin: 12/19/16 08:25 Dose: 0.25 mg Apixaban (Eliquis) 5 mg PO BID [facility] PRN Reason: Protocol Last Admin: 12/19/16 16:02 Dose: 5 mg Aspirin (Aspirin Chewable) 81 mg PO DAILY [facility] Last Admin: 12/19/16 08:27 Dose: 81 mg Dextrose (Dextrose 50% Inj) 0 ml IVP STAT PRN; Protocol PRN Reason: Hypoglycemia Protocol Enalapril Maleate (Vasotec) 2.5 mg PO DAILY [facility] Last Admin: 12/19/16 08:30 Dose: 2.5 mg Furosemide (Lasix) 40 mg IVP BID [facility] Stop: 12/22/16 17:01 Last Admin: 12/19/16 16:08 Dose: 40 mg Glucagon (Glucagen Diagnostic Kit) 0 mg IM STAT PRN; Protocol PRN Reason: Hypoglycemia Protocol Guaifenesin/Dextromethorphan (Robitussin Dm) 5 ml PO Q6H PRN PRN Reason: Cough Vancomycin HCl 750 mg/ Sodium (Chloride) 250 mls @ 166.667 mls/hr IVPB DAILY [facility] Last Admin: 12/19/16 16:03 Dose: 166.667 mls/hr Piperacillin Sod/Tazobactam (Sod 3.375 gm/ Sodium Chloride) 100 mls @ 100 mls/ hr IVPB Q6 [facility] Last Admin: 12/19/16 16:05 Dose: 100 mls/hr Insulin Detemir (Levemir) 10 units SC HS [facility] Last Admin: 12/18/16 22:10 Dose: 10 u Insulin Human Lispro (Humalog) 0 units SC ACHS [facility] PRN Reason: Protocol Last Admin: 12/19/16 16:00 Dose: 5 u Insulin Human Lispro (Humalog) 3 units SC AC [facility] Last Admin: 12/19/16 16:00 Dose: 3 unit Levothyroxine Sodium (Synthroid) 125 mcg PO ACB [facility] Last Admin: 12/19/16 06:30 Dose: 125 mcg Metformin HCl (Glucophage) 1,000 mg PO BIDWM [facility] Last Admin: 12/19/16 16:02 Dose: 1,000 mg Metoprolol Tartrate (Lopressor) 25 mg PO Q12 [facility] Last Admin: 12/19/16 08:29 Dose: 25 mg Ondansetron HCl (Zofran Inj) 4 mg IVP Q4 PRN PRN Reason: Nausea/Vomiting Last Admin: 12/19/16 02:00 Dose: 4 mg Pantoprazole Sodium (Protonix Ec Tab) 20 mg PO DAILY [facility] Last Admin: 12/19/16 08:30 Dose: 20 mg Risperidone (Risperdal Oral Soln) 1 mg PO DAILY [facility] Last Admin: 12/19/16 08:30 Dose: 1 mg Simethicone (Mylicon Chew Tab) 80 mg PO QID PRN PRN Reason: Flatulence Last Admin: 12/19/16 01:22 Dose: 80 mg Sitagliptin Phosphate (Januvia) 100 mg PO DAILY [facility] Last Admin: 12/19/16 15:57 Dose: Not Given Sucralfate (Carafate Oral Susp) 1 gm PO BID [facility] Last Admin: 12/19/16 16:02 Dose: 1 gm Physical Exam - Constitutional Appears: No Acute Distress - Head Exam Head Exam: NORMAL INSPECTION - Eye Exam Eye Exam: PERRL - ENT Exam ENT Exam: Normal Oropharynx - Neck Exam Neck exam: Positive for: Normal Inspection - Respiratory Exam Respiratory Exam: Decreased Breath Sounds (at bases) Additional comments: Few crackles at bases - Cardiovascular Exam Cardiovascular Exam: REGULAR RHYTHM - GI/Abdominal Exam GI & Abdominal Exam: Normal Bowel Sounds, Soft - Extremities Exam Additional comments: Legs edema - Back Exam Back exam: NORMAL INSPECTION - Neurological Exam Neurological exam: Alert, Oriented x3 Additional comments: No gross focal motor deficit. - Psychiatric Exam Psychiatric exam: Anxious - Skin Skin Exam: Warm Results - Vital Signs Recent Vital Signs: Last Vital Signs Temp 97.5 F L 12/19/16 16:00 Pulse 102 H 12/19/16 17:31 Resp 16 12/19/16 17:31 BP 99/52 L 12/19/16 17:31 Pulse Ox 98 12/19/16 17:31 reviewed Mario - Labs Result Diagrams: 12/19/16 04:45 12/19/16 04:45 Labs: Laboratory Results - last 24 hr 12/18/16 12/18/16 12/18/16 20:45 20:57 20:57 WBC 14.4 H RBC 4.93 Hgb 12.1 Hct 38.2 MCV 77.4 L MCH 24.6 L MCHC 31.8 L RDW 21.2 H Plt Count 334 MPV 10.0 Neut % (Auto) 59.8 Lymph % (Auto) 27.6 Taney % (Auto) 11.5 H Eos % (Auto) 0.6 Baso % (Auto) 0.5 Neut # 8.6 H Lymph # 4.0 Taney # 1.7 H Eos # 0.1 Baso # 0.1 Sodium 119 L* Potassium 4.6 Chloride 86 L Carbon Dioxide 22 Anion Gap 16 BUN 36 H Creatinine 0.7 Est GFR ( Amer) > 60 Est GFR (Non-Af Amer) > 60 POC Glucose (mg/dL) Random Glucose 265 H Serum Osmolality Lactic Acid Calcium 9.0 Total Bilirubin 1.3 AST 207 H ALT 392 H Alkaline Phosphatase 486 H Troponin I < 0.0120 Total Protein 6.4 Albumin 3.6 Globulin 2.7 Albumin/Globulin Ratio 1.3 Procalcitonin 0.16 L Free T4 TSH 3rd Generation Urine Color Urine Clarity Urine pH Ur Specific [place] Urine Protein Urine Glucose (UA) Urine Ketones Urine Blood Urine Nitrate Urine Bilirubin Urine Urobilinogen Ur Leukocyte Esterase Urine RBC (Auto) Urine Microscopic WBC Ur Squamous Epith Cells Urine Bacteria Urine Osmolality Ur Random Sodium 12/18/16 12/18/16 12/19/16 21:55 22:08 04:45 WBC 17.9 H RBC 5.01 Hgb 12.5 Hct 39.2 MCV 78.2 L MCH 24.9 L MCHC 31.8 L RDW 21.2 H Plt Count 331 MPV Neut % (Auto) Lymph % (Auto) Taney % (Auto) Eos % (Auto) Baso % (Auto) Neut # Lymph # Taney # Eos # Baso # Sodium Potassium Chloride Carbon Dioxide Anion Gap BUN Creatinine Est GFR ( Amer) Est GFR (Non-Af Amer) POC Glucose (mg/dL) 269 H Random Glucose Serum Osmolality Lactic Acid 3.3 H Calcium Total Bilirubin AST ALT Alkaline Phosphatase Troponin I Total Protein Albumin Globulin Albumin/Globulin Ratio Procalcitonin Free T4 TSH 3rd Generation Urine Color Urine Clarity Urine pH Ur Specific [place] Urine Protein Urine Glucose (UA) Urine Ketones Urine Blood Urine Nitrate Urine Bilirubin Urine Urobilinogen Ur Leukocyte Esterase Urine RBC (Auto) Urine Microscopic WBC Ur Squamous Epith Cells Urine Bacteria Urine Osmolality Ur Random Sodium 12/19/16 12/19/16 12/19/16 04:45 04:52 11:13 WBC RBC Hgb Hct MCV MCH MCHC RDW Plt Count MPV Neut % (Auto) Lymph % (Auto) Taney % (Auto) Eos % (Auto) Baso % (Auto) Neut # Lymph # Taney # Eos # Baso # Sodium 123 L Potassium 5.0 Chloride 85 L Carbon Dioxide 28 Anion Gap 15 BUN 39 H Creatinine 0.9 Est GFR ( Amer) > 60 Est GFR (Non-Af Amer) > 60 POC Glucose (mg/dL) 266 H 391 H Random Glucose 262 H Serum Osmolality Lactic Acid Calcium 9.3 Total Bilirubin 2.1 H AST 183 H ALT 369 H Alkaline Phosphatase 511 H Troponin I Total Protein 6.5 Albumin 3.7 Globulin 2.8 Albumin/Globulin Ratio 1.3 Procalcitonin Free T4 TSH 3rd Generation Urine Color Urine Clarity Urine pH Ur Specific [place] Urine Protein Urine Glucose (UA) Urine Ketones Urine Blood Urine Nitrate Urine Bilirubin Urine Urobilinogen Ur Leukocyte Esterase Urine RBC (Auto) Urine Microscopic WBC Ur Squamous Epith Cells Urine Bacteria Urine Osmolality Ur Random Sodium 12/19/16 12/19/16 12/19/16 11:32 11:32 12:00 WBC RBC Hgb Hct MCV MCH MCHC RDW Plt Count MPV Neut % (Auto) Lymph % (Auto) Taney % (Auto) Eos % (Auto) Baso % (Auto) Neut # Lymph # Taney # Eos # Baso # Sodium Potassium Chloride Carbon Dioxide Anion Gap BUN Creatinine Est GFR ( Amer) Est GFR (Non-Af Amer) POC Glucose (mg/dL) Random Glucose Serum Osmolality Lactic Acid 2.8 H Calcium Total Bilirubin AST ALT Alkaline Phosphatase Troponin I Total Protein Albumin Globulin Albumin/Globulin Ratio Procalcitonin Free T4 2.18 TSH 3rd Generation 5.42 H Urine Color Urine Clarity Urine pH Ur Specific [place] Urine Protein Urine Glucose (UA) Urine Ketones Urine Blood Urine Nitrate Urine Bilirubin Urine Urobilinogen Ur Leukocyte Esterase Urine RBC (Auto) Urine Microscopic WBC Ur Squamous Epith Cells Urine Bacteria Urine Osmolality Ur Random Sodium 12/19/16 12/19/16 12/19/16 15:41 18:24 18:24 WBC RBC Hgb Hct MCV MCH MCHC RDW Plt Count MPV Neut % (Auto) Lymph % (Auto) Taney % (Auto) Eos % (Auto) Baso % (Auto) Neut # Lymph # Taney # Eos # Baso # Sodium Potassium Chloride Carbon Dioxide Anion Gap BUN Creatinine Est GFR ( Amer) Est GFR (Non-Af Amer) POC Glucose (mg/dL) 384 H Random Glucose Serum Osmolality Lactic Acid Calcium Total Bilirubin AST ALT Alkaline Phosphatase Troponin I Total Protein Albumin Globulin Albumin/Globulin Ratio Procalcitonin Free T4 TSH 3rd Generation Urine Color Straw Urine Clarity Clear Urine pH 5.0 Ur Specific [place] 1.009 Urine Protein Negative Urine Glucose (UA) >=500 Urine Ketones Negative Urine Blood Negative Urine Nitrate Negative Urine Bilirubin Negative Urine Urobilinogen 0.2-1.0 Ur Leukocyte Esterase Small Urine RBC (Auto) 1 Urine Microscopic WBC 8 H Ur Squamous Epith Cells 1 Urine Bacteria Rare Urine Osmolality 368 Ur Random Sodium 5 12/19/16 19:53 WBC RBC Hgb Hct MCV MCH MCHC RDW Plt Count MPV Neut % (Auto) Lymph % (Auto) Taney % (Auto) Eos % (Auto) Baso % (Auto) Neut # Lymph # Taney # Eos # Baso # Sodium Potassium Chloride Carbon Dioxide Anion Gap BUN Creatinine Est GFR ( Amer) Est GFR (Non-Af Amer) POC Glucose (mg/dL) Random Glucose Serum Osmolality 281 Lactic Acid Calcium Total Bilirubin AST ALT Alkaline Phosphatase Troponin I Total Protein Albumin Globulin Albumin/Globulin Ratio Procalcitonin Free T4 TSH 3rd Generation Urine Color Urine Clarity Urine pH Ur Specific [place] Urine Protein Urine Glucose (UA) Urine Ketones Urine Blood Urine Nitrate Urine Bilirubin Urine Urobilinogen Ur Leukocyte Esterase Urine RBC (Auto) Urine Microscopic WBC Ur Squamous Epith Cells Urine Bacteria Urine Osmolality Ur Random Sodium reviewed J.P. - Imaging and Cardiology Chest x-ray Status: Report reviewed by me (J.P.) Assessment & Plan (1) Respiratory insufficiency Status: Acute Priority: High (2) COPD (chronic obstructive pulmonary disease) Status: Acute (3) Bilateral pleural effusion Status: Acute Priority: High (4) Atelectasis of both lungs Status: Acute Priority: High (5) CHF (congestive heart failure) Status: Chronic (6) Sepsis Status: Acute - Assessment and Plan (Free Text) Plan: Continue on NC, f/u EKG report, Chest CT, - Date & Time Date: 12/19/16 Time: 18:00
[2016-12-19] MEDS: Insulin Detemir 100 Units/ml Inj SC SCH (21:50)
[2016-12-19] MEDS: Alum-Mag Hydrox-Simethicone Susp (30 mL) PO PRN (22:00)
[2016-12-20 05:14] LABS: ALB/GLOB RATIO 1.3 (1.0-2.1); ALKALINE PHOSPHATASE 578 U/L (38-126); ALT/SGPT 317 U/L (9-52); AST/SGOT 145 U/L (14-36); BILIRUBIN,TOTAL 1.3 mg/dl (0.2-1.3); BLOOD UREA NITROGEN 49 mg/dl (7-17); CALCIUM 8.9 mg/dL (8.4-10.2); CARBON DIOXIDE 28 mmol/L (22-30); CHLORIDE 84 mmol/L (98-107); GFR AFRICAN-AMERICAN > 60; GLUCOSE,RANDOM 213 mg/dL (65-105); POTASSIUM 4.6 MMOL/L (3.6-5.0); SODIUM 121 mmol/l (132-148); TOTAL PROTEIN 6.3 G/DL (6.3-8.2)
[2016-12-20 19:46] LABS: HEMATOCRIT 38.2 % (34.0-47.0); MEAN CELL VOLUME 78.2 fl (81.0-99.0); MEAN CORPUSCULAR HEMOGLOBIN 24.7 pg (27.0-31.0); MEAN CORPUSCULAR HGB CONC 31.6 g/dL (33.0-37.0); RED CELL DISTRIBUTION WIDTH 21.6 % (11.5-14.5)
[2016-12-20] MEDS: Albuterol 0.083% Inhal Sol (2.5 mg/3 mL) UD IH SCH (19:52)
--- NOTE | 2016-12-20 20:11 | CP.PCM.PN ---
Subjective - Date & Time of Evaluation Date of Evaluation: 12/20/16 Time of Evaluation: 11:00 - Subjective Subjective: F/U Respiratory Insufficiency. Pt in no A/D, breathing better. Objective - Vital Signs/Intake and Output Vital Signs (last 24 hours): Temp Pulse Resp BP Pulse Ox 97.7 F 109 H 26 H 102/66 98 12/19/16 20:00 12/19/16 22:00 12/19/16 22:00 12/19/16 22:00 12/19/16 22:00 - Medications Medications: Current Medications Al Hydrox/Mg Hydrox/Simethicone (Maalox Plus 30 Ml) 30 ml PO Q6 PRN PRN Reason: Indigestion / Heartburn Last Admin: 12/19/16 22:00 Dose: 30 ml Albuterol Sulfate (Albuterol 0.083% Inhal Maria Guadalupe (2.5 Mg/3 Ml) Ud) 2.5 mg IH RQ6 [facility] Last Admin: 12/20/16 19:52 Dose: Not Given Alprazolam (Xanax) 0.25 mg PO Q12 PRN PRN Reason: Anxiety Stop: 12/25/16 15:30 Last Admin: 12/19/16 08:25 Dose: 0.25 mg Apixaban (Eliquis) 5 mg PO BID [facility] PRN Reason: Protocol Last Admin: 12/19/16 16:02 Dose: 5 mg Aspirin (Aspirin Chewable) 81 mg PO DAILY [facility] Last Admin: 12/19/16 08:27 Dose: 81 mg Dextrose (Dextrose 50% Inj) 0 ml IVP STAT PRN; Protocol PRN Reason: Hypoglycemia Protocol Enalapril Maleate (Vasotec) 2.5 mg PO DAILY [facility] Last Admin: 12/19/16 08:30 Dose: 2.5 mg Furosemide (Lasix) 40 mg IVP BID [facility] Stop: 12/22/16 17:01 Last Admin: 12/19/16 16:08 Dose: 40 mg Glucagon (Glucagen Diagnostic Kit) 0 mg IM STAT PRN; Protocol PRN Reason: Hypoglycemia Protocol Guaifenesin/Dextromethorphan (Robitussin Dm) 5 ml PO Q6H PRN PRN Reason: Cough Vancomycin HCl 750 mg/ Sodium (Chloride) 250 mls @ 166.667 mls/hr IVPB DAILY [facility] Last Admin: 12/19/16 16:03 Dose: 166.667 mls/hr Piperacillin Sod/Tazobactam (Sod 3.375 gm/ Sodium Chloride) 100 mls @ 100 mls/ hr IVPB Q6 [facility] Last Admin: 12/19/16 21:53 Dose: 100 mls/hr Insulin Detemir (Levemir) 10 units SC HS [facility] Last Admin: 12/19/16 21:50 Dose: 10 u Insulin Human Lispro (Humalog) 0 units SC ACHS [facility] PRN Reason: Protocol Last Admin: 12/19/16 21:49 Dose: 4 u Insulin Human Lispro (Humalog) 3 units SC AC [facility] Last Admin: 12/19/16 16:00 Dose: 3 unit Levothyroxine Sodium (Synthroid) 125 mcg PO ACB [facility] Last Admin: 12/19/16 06:30 Dose: 125 mcg Metformin HCl (Glucophage) 1,000 mg PO BIDWM [facility] Last Admin: 12/19/16 16:02 Dose: 1,000 mg Metoprolol Tartrate (Lopressor) 25 mg PO Q12 [facility] Last Admin: 12/19/16 21:51 Dose: 25 mg Ondansetron HCl (Zofran Inj) 4 mg IVP Q4 PRN PRN Reason: Nausea/Vomiting Last Admin: 12/19/16 02:00 Dose: 4 mg Pantoprazole Sodium (Protonix Ec Tab) 20 mg PO DAILY [facility] Last Admin: 12/19/16 08:30 Dose: 20 mg Risperidone (Risperdal Oral Soln) 1 mg PO DAILY [facility] Last Admin: 12/19/16 08:30 Dose: 1 mg Simethicone (Mylicon Chew Tab) 80 mg PO QID PRN PRN Reason: Flatulence Last Admin: 12/19/16 01:22 Dose: 80 mg Sitagliptin Phosphate (Januvia) 100 mg PO DAILY [facility] Last Admin: 12/19/16 15:57 Dose: Not Given Sucralfate (Carafate Oral Susp) 1 gm PO BID [facility] Last Admin: 12/19/16 16:02 Dose: 1 gm - Labs Labs: 12/19/16 04:45 12/19/16 04:45 - Constitutional Appears: No Acute Distress - Head Exam Head Exam: NORMAL INSPECTION - Eye Exam Eye Exam: PERRL - ENT Exam ENT Exam: Normal Oropharynx - Neck Exam Neck Exam: Normal Inspection - Respiratory Exam Respiratory Exam: Decreased Breath Sounds (at bases) - Cardiovascular Exam Cardiovascular Exam: REGULAR RHYTHM - GI/Abdominal Exam GI & Abdominal Exam: Soft, Normal Bowel Sounds - Extremities Exam Additional comments: Legs edema - Back Exam Back Exam: NORMAL INSPECTION - Neurological Exam Neurological Exam: Alert, Oriented x3. absent: Motor Sensory Deficit - Psychiatric Exam Psychiatric exam: Normal Mood - Skin Skin Exam: Warm Assessment and Plan (1) COPD (chronic obstructive pulmonary disease) Status: Acute (2) Bilateral pleural effusion Status: Acute (3) Atelectasis of both lungs Status: Acute (4) CHF (congestive heart failure) Status: Chronic (5) Sepsis Status: Acute - Assessment and Plan (Free Text) Plan: respiratory insufficiency improved, Pt transfer to telemetry.
[2016-12-20] MEDS: Insulin Detemir 100 Units/ml Inj SC SCH (22:12)
[2016-12-20] MEDS: Insulin Lispro (humaLOG) 100 Units/ml Inj SC SCH (22:13)
[2016-12-21] MEDS: Albuterol 0.083% Inhal Sol (2.5 mg/3 mL) UD IH SCH ×4 (01:03→22:29)
[2016-12-21] MEDS: Levothyroxine 150 MCG TAB PO SCH (05:53)
--- NOTE | 2016-12-21 08:58 | RAD ---
HISTORY: Not available COMPARISON: 12/18/2016 FINDINGS: LUNGS: Moderate right and small left pleural effusion. Bilateral perihilar/ basilar infiltrates are mildly improved compared to the prior examination. PLEURA: Moderate right and small left pleural effusion. No pneumothorax. CARDIOVASCULAR: Mild congestive change. OSSEOUS STRUCTURES: No significant abnormalities. VISUALIZED UPPER ABDOMEN: Normal. OTHER FINDINGS: None. IMPRESSION: Bilateral pleural effusion, right greater than left. Mild improvement in bilateral perihilar/basilar infiltrates.
--- NOTE | 2016-12-21 09:00 | CP.PCM.PN ---
Subjective - Date & Time of Evaluation Date of Evaluation: 12/20/16 Time of Evaluation: 09:20 - Subjective Subjective: Patient was noted to be very sleepy Has no fever Still with a lot of leg edema Objective - Vital Signs/Intake and Output Vital Signs (last 24 hours): Temp Pulse Resp BP Pulse Ox 97.2 F L 89 20 89/63 L 96 12/21/16 08:23 12/21/16 08:23 12/21/16 08:23 12/21/16 08:23 12/21/16 08:23 Intake and Output: 12/21/16 12/21/16 06:59 18:59 Intake Total 370 Output Total 2020 Balance -1650 - Medications Medications: Current Medications Al Hydrox/Mg Hydrox/Simethicone (Maalox Plus 30 Ml) 30 ml PO Q6 PRN PRN Reason: Indigestion / Heartburn Last Admin: 12/19/16 22:00 Dose: 30 ml Albuterol Sulfate (Albuterol 0.083% Inhal Maria Guadalupe (2.5 Mg/3 Ml) Ud) 2.5 mg IH RQ6 [facility] Last Admin: 12/21/16 07:51 Dose: Not Given Alprazolam (Xanax) 0.25 mg PO Q12 PRN PRN Reason: Anxiety Stop: 12/25/16 15:30 Last Admin: 12/19/16 08:25 Dose: 0.25 mg Apixaban (Eliquis) 5 mg PO BID [facility] PRN Reason: Protocol Last Admin: 12/19/16 16:02 Dose: 5 mg Aspirin (Aspirin Chewable) 81 mg PO DAILY [facility] Last Admin: 12/19/16 08:27 Dose: 81 mg Dextrose (Dextrose 50% Inj) 0 ml IVP STAT PRN; Protocol PRN Reason: Hypoglycemia Protocol Enalapril Maleate (Vasotec) 2.5 mg PO DAILY [facility] Last Admin: 12/19/16 08:30 Dose: 2.5 mg Furosemide (Lasix) 40 mg IVP BID [facility] Stop: 12/22/16 17:01 Last Admin: 12/19/16 16:08 Dose: 40 mg Glucagon (Glucagen Diagnostic Kit) 0 mg IM STAT PRN; Protocol PRN Reason: Hypoglycemia Protocol Guaifenesin/Dextromethorphan (Robitussin Dm) 5 ml PO Q6H PRN PRN Reason: Cough Insulin Detemir (Levemir) 10 units SC HS [facility] Last Admin: 12/20/16 22:12 Dose: 10 u Insulin Human Lispro (Humalog) 0 units SC ACHS [facility] PRN Reason: Protocol Last Admin: 12/20/16 22:13 Dose: Not Given Insulin Human Lispro (Humalog) 3 units SC AC [facility] Last Admin: 12/19/16 16:00 Dose: 3 unit Levothyroxine Sodium (Synthroid) 150 mcg PO DAILY@0630 [facility] Last Admin: 12/21/16 05:53 Dose: 150 mcg Metformin HCl (Glucophage) 1,000 mg PO BIDWM [facility] Last Admin: 12/19/16 16:02 Dose: 1,000 mg Metolazone (Zaroxolyn) 5 mg PO DAILY [facility] Metoprolol Tartrate (Lopressor) 25 mg PO Q12 [facility] Last Admin: 12/20/16 22:13 Dose: 25 mg Ondansetron HCl (Zofran Inj) 4 mg IVP Q4 PRN PRN Reason: Nausea/Vomiting Last Admin: 12/19/16 02:00 Dose: 4 mg Pantoprazole Sodium (Protonix Ec Tab) 20 mg PO DAILY [facility] Last Admin: 12/19/16 08:30 Dose: 20 mg Risperidone (Risperdal Oral Soln) 1 mg PO DAILY [facility] Last Admin: 12/19/16 08:30 Dose: 1 mg Simethicone (Mylicon Chew Tab) 80 mg PO QID PRN PRN Reason: Flatulence Last Admin: 12/19/16 01:22 Dose: 80 mg Sitagliptin Phosphate (Januvia) 100 mg PO DAILY [facility] Last Admin: 12/19/16 15:57 Dose: Not Given Sucralfate (Carafate Oral Susp) 1 gm PO BID [facility] Last Admin: 12/19/16 16:02 Dose: 1 gm - Labs Labs: 12/20/16 04:00 12/20/16 04:00
--- NOTE | 2016-12-21 09:01 | CP.PCM.PN ---
Subjective - Date & Time of Evaluation Date of Evaluation: 12/21/16 Time of Evaluation: 09:00 - Subjective Subjective: patient feels a lot better today Has no abdominal pains Still with leg edema but improving On Lasix 40 bid Objective - Vital Signs/Intake and Output Vital Signs (last 24 hours): Temp Pulse Resp BP Pulse Ox 97.2 F L 89 20 89/63 L 96 12/21/16 08:23 12/21/16 08:23 12/21/16 08:23 12/21/16 08:23 12/21/16 08:23 Intake and Output: 12/21/16 12/21/16 06:59 18:59 Intake Total 370 Output Total 2020 Balance -1650 - Medications Medications: Current Medications Al Hydrox/Mg Hydrox/Simethicone (Maalox Plus 30 Ml) 30 ml PO Q6 PRN PRN Reason: Indigestion / Heartburn Last Admin: 12/19/16 22:00 Dose: 30 ml Albuterol Sulfate (Albuterol 0.083% Inhal Maria Guadalupe (2.5 Mg/3 Ml) Ud) 2.5 mg IH RQ6 [facility] Last Admin: 12/21/16 07:51 Dose: Not Given Alprazolam (Xanax) 0.25 mg PO Q12 PRN PRN Reason: Anxiety Stop: 12/25/16 15:30 Last Admin: 12/19/16 08:25 Dose: 0.25 mg Apixaban (Eliquis) 5 mg PO BID [facility] PRN Reason: Protocol Last Admin: 12/19/16 16:02 Dose: 5 mg Aspirin (Aspirin Chewable) 81 mg PO DAILY [facility] Last Admin: 12/19/16 08:27 Dose: 81 mg Dextrose (Dextrose 50% Inj) 0 ml IVP STAT PRN; Protocol PRN Reason: Hypoglycemia Protocol Enalapril Maleate (Vasotec) 2.5 mg PO DAILY [facility] Last Admin: 12/19/16 08:30 Dose: 2.5 mg Furosemide (Lasix) 40 mg IVP BID [facility] Stop: 12/22/16 17:01 Last Admin: 12/19/16 16:08 Dose: 40 mg Glucagon (Glucagen Diagnostic Kit) 0 mg IM STAT PRN; Protocol PRN Reason: Hypoglycemia Protocol Guaifenesin/Dextromethorphan (Robitussin Dm) 5 ml PO Q6H PRN PRN Reason: Cough Insulin Detemir (Levemir) 10 units SC HS [facility] Last Admin: 12/20/16 22:12 Dose: 10 u Insulin Human Lispro (Humalog) 0 units SC ACHS [facility] PRN Reason: Protocol Last Admin: 12/20/16 22:13 Dose: Not Given Insulin Human Lispro (Humalog) 3 units SC AC [facility] Last Admin: 12/19/16 16:00 Dose: 3 unit Levothyroxine Sodium (Synthroid) 150 mcg PO DAILY@0630 [facility] Last Admin: 12/21/16 05:53 Dose: 150 mcg Metformin HCl (Glucophage) 1,000 mg PO BIDWM [facility] Last Admin: 12/19/16 16:02 Dose: 1,000 mg Metolazone (Zaroxolyn) 5 mg PO DAILY [facility] Metoprolol Tartrate (Lopressor) 25 mg PO Q12 [facility] Last Admin: 12/20/16 22:13 Dose: 25 mg Ondansetron HCl (Zofran Inj) 4 mg IVP Q4 PRN PRN Reason: Nausea/Vomiting Last Admin: 12/19/16 02:00 Dose: 4 mg Pantoprazole Sodium (Protonix Ec Tab) 20 mg PO DAILY [facility] Last Admin: 12/19/16 08:30 Dose: 20 mg Risperidone (Risperdal Oral Soln) 1 mg PO DAILY [facility] Last Admin: 12/19/16 08:30 Dose: 1 mg Simethicone (Mylicon Chew Tab) 80 mg PO QID PRN PRN Reason: Flatulence Last Admin: 12/19/16 01:22 Dose: 80 mg Sitagliptin Phosphate (Januvia) 100 mg PO DAILY [facility] Last Admin: 12/19/16 15:57 Dose: Not Given Sucralfate (Carafate Oral Susp) 1 gm PO BID [facility] Last Admin: 12/19/16 16:02 Dose: 1 gm - Labs Labs: 12/20/16 04:00 12/20/16 04:00
[2016-12-21] MEDS: metOLazone 5 MG TAB PO SCH (10:59)
[2016-12-21] MEDS: Pantoprazole 20 mg EC Tab PO SCH (11:00)
[2016-12-21] MEDS: Insulin Lispro (humaLOG) 100 Units/ml Inj SC SCH ×7 (11:02→21:56)
--- NOTE | 2016-12-21 11:24 | RAD ---
HISTORY: Pneumonia. Effusions. COMPARISON: Correct Comparison through prior study 12/20/2016 FINDINGS: LUNGS: Mild vascular congestive changes with bilateral lower lobe alveolar-type infiltrates/ atelectasis and bilateral effusions. . Underlying pneumonia not excluded. PLEURA: As above. No pneumothorax seen. CARDIOVASCULAR: Heart size difficult to assess due to silhouetting of of the right and left cardiac borders OSSEOUS STRUCTURES: No significant abnormalities. VISUALIZED UPPER ABDOMEN: Normal. OTHER FINDINGS: None. IMPRESSION: Mild vascular congestive changes with bilateral lower lobe alveolar-type infiltrates/ atelectasis and bilateral effusions.
[2016-12-21] MEDS: Promethazine/Cod 6.25mg-10mg/5ml Syr UD PO PRN (13:31)
[2016-12-21] MEDS: Sucralfate 1 gm/10 ml Oral Susp UD PO SCH ×2 (13:31→17:02)
--- NOTE | 2016-12-21 14:17 | CP.PCM.PN ---
Subjective - Date & Time of Evaluation Date of Evaluation: 12/21/16 Time of Evaluation: 10:20 - Subjective Subjective: F/U Respiratory Insufficiency. Pt c/o of dry cough, no SOB. Objective - Vital Signs/Intake and Output Vital Signs (last 24 hours): Temp Pulse Resp BP Pulse Ox 97.4 F L 108 H 20 108/73 96 12/21/16 12:49 12/21/16 12:49 12/21/16 12:49 12/21/16 12:49 12/21/16 12:49 Intake and Output: 12/21/16 12/21/16 06:59 18:59 Intake Total 370 Output Total 2020 Balance -1650 - Medications Medications: Current Medications Al Hydrox/Mg Hydrox/Simethicone (Maalox Plus 30 Ml) 30 ml PO Q6 PRN PRN Reason: Indigestion / Heartburn Last Admin: 12/19/16 22:00 Dose: 30 ml Albuterol Sulfate (Albuterol 0.083% Inhal Maria Guadalupe (2.5 Mg/3 Ml) Ud) 2.5 mg IH RQ6 [facility] Last Admin: 12/21/16 13:21 Dose: Not Given Alprazolam (Xanax) 0.25 mg PO Q12 PRN PRN Reason: Anxiety Stop: 12/25/16 15:30 Last Admin: 12/19/16 08:25 Dose: 0.25 mg Apixaban (Eliquis) 5 mg PO BID [facility] PRN Reason: Protocol Last Admin: 12/21/16 11:00 Dose: 5 mg Aspirin (Aspirin Chewable) 81 mg PO DAILY [facility] Last Admin: 12/21/16 11:00 Dose: 81 mg Dextrose (Dextrose 50% Inj) 0 ml IVP STAT PRN; Protocol PRN Reason: Hypoglycemia Protocol Enalapril Maleate (Vasotec) 2.5 mg PO DAILY [facility] Last Admin: 12/21/16 10:58 Dose: Not Given Furosemide (Lasix) 40 mg IVP BID [facility] Stop: 12/22/16 17:01 Last Admin: 12/21/16 10:57 Dose: Not Given Glucagon (Glucagen Diagnostic Kit) 0 mg IM STAT PRN; Protocol PRN Reason: Hypoglycemia Protocol Guaifenesin/Dextromethorphan (Robitussin Dm) 5 ml PO Q6H PRN PRN Reason: Cough Insulin Detemir (Levemir) 10 units SC HS [facility] Last Admin: 12/20/16 22:12 Dose: 10 u Insulin Human Lispro (Humalog) 0 units SC ACHS [facility] PRN Reason: Protocol Last Admin: 12/21/16 13:32 Dose: 5 u Insulin Human Lispro (Humalog) 3 units SC AC [facility] Last Admin: 12/21/16 13:32 Dose: 3 unit Levothyroxine Sodium (Synthroid) 150 mcg PO DAILY@0630 [facility] Last Admin: 12/21/16 05:53 Dose: 150 mcg Metformin HCl (Glucophage) 1,000 mg PO BIDWM [facility] Last Admin: 12/21/16 11:01 Dose: 1,000 mg Metolazone (Zaroxolyn) 5 mg PO DAILY [facility] Last Admin: 12/21/16 10:59 Dose: 5 mg Metoprolol Tartrate (Lopressor) 25 mg PO Q12 [facility] Last Admin: 12/21/16 10:58 Dose: Not Given Ondansetron HCl (Zofran Inj) 4 mg IVP Q4 PRN PRN Reason: Nausea/Vomiting Last Admin: 12/19/16 02:00 Dose: 4 mg Pantoprazole Sodium (Protonix Ec Tab) 20 mg PO DAILY [facility] Last Admin: 12/21/16 11:00 Dose: 20 mg Promethazine HCl/Codeine (Phenergan/Codeine Oral Syrup) 5 ml PO Q4 PRN PRN Reason: Cough Last Admin: 12/21/16 13:31 Dose: 5 ml Risperidone (Risperdal Oral Soln) 1 mg PO DAILY [facility] Last Admin: 12/21/16 10:59 Dose: 1 mg Simethicone (Mylicon Chew Tab) 80 mg PO QID PRN PRN Reason: Flatulence Last Admin: 12/19/16 01:22 Dose: 80 mg Sitagliptin Phosphate (Januvia) 100 mg PO DAILY [facility] Last Admin: 12/21/16 11:01 Dose: 100 mg Sucralfate (Carafate Oral Susp) 1 gm PO BID [facility] Last Admin: 12/21/16 13:31 Dose: 1 gm - Labs Labs: 12/20/16 04:00 12/20/16 04:00 - Constitutional Appears: No Acute Distress - Head Exam Head Exam: NORMAL INSPECTION - Eye Exam Eye Exam: PERRL - ENT Exam ENT Exam: Normal Oropharynx - Neck Exam Neck Exam: Normal Inspection - Respiratory Exam Respiratory Exam: Decreased Breath Sounds (at bases) - Cardiovascular Exam Cardiovascular Exam: REGULAR RHYTHM - GI/Abdominal Exam GI & Abdominal Exam: Soft, Normal Bowel Sounds - Extremities Exam Additional comments: Legs edema - Back Exam Back Exam: NORMAL INSPECTION - Neurological Exam Neurological Exam: Alert, Oriented x3. absent: Motor Sensory Deficit - Psychiatric Exam Psychiatric exam: Normal Mood - Skin Skin Exam: Warm Assessment and Plan (1) Respiratory insufficiency Status: Acute (2) COPD (chronic obstructive pulmonary disease) Status: Acute (3) Bilateral pleural effusion Status: Acute (4) Atelectasis of both lungs Status: Resolved (5) CHF (congestive heart failure) Status: Chronic (6) Sepsis Status: Acute - Assessment and Plan (Free Text) Plan: Lasix hold in AM due to low BP, begins Phenergan with Co, f/u CXR report.
--- NOTE | 2016-12-21 17:03 | CP.PCM.PN ---
Subjective - Date & Time of Evaluation Date of Evaluation: 12/21/16 Time of Evaluation: 16:58 - Subjective Subjective: Initial Nephrology Consultation: Assessment: Hypervolemic hyponatremia due to her CHF and expanded volume status chronic systolic CHF, DM uncontrolled with hyperglycemia, Bipolar disorder, hypothyoridism Plan repeat BMP today and in AM continue to diurese her with loop diuretic as lasix. if no response then will consider to add Tolvaptan avoid increase in serum Na >6 meq/24 hr oral fluid restriction to 800-1000 mL/day monitor serum Na closely. will repeat bmp today and in am Glycemic control Further work up/management as per primary team Thanks for allowing me to participate in care of your patient. Will follow patient with you. Please call if any Qs Dr Bogdan Valera Office: [phone] Subjective: c/o SOB and leg swelling. denies chest pain Physical Examination: General Appearance: Comfortable, in no acute respiratory distress, co- operative. Vitals reviewed and noted as below Head; Atraumatic, normocephalic Lungs: Normal respiratory rate/effort. Breath sounds decreased at bases. Heart: Increased rate. s1s2 normal. No rub ? gallop. Extremities: 3+ edema. No varicose veins Neurological: Patient is alert, awake and oriented to person, place and time. No focal deficit. Strength bilateral appropriate and equal Skin: somewhat cool to touch leg skin, dry. Normal turgor. No rash. Palpitation : Normal elasticity for age Abdomen: Abdomen is soft. Bowel sounds +. There is no abdominal tenderness, no guarding/rigidity or organomegaly : kidney or bladder not palpable Labs/imaging reviewed. Past medical history, past surgical history, family history, social history, allergy reviewed and noted as below Work up: TGL 97 TSH 3.8 A1c 12% BNP 3300 CXR: b/l pleural effusion Echo: LVEF 30% Objective - Vital Signs/Intake and Output Vital Signs (last 24 hours): Temp Pulse Resp BP Pulse Ox 97.4 F L 108 H 20 108/73 96 12/21/16 12:49 12/21/16 12:49 12/21/16 12:49 12/21/16 12:49 12/21/16 12:49 Intake and Output: 12/21/16 12/21/16 06:59 18:59 Intake Total 370 Output Total 2019 Balance -1650 - Medications Medications: Current Medications Al Hydrox/Mg Hydrox/Simethicone (Maalox Plus 30 Ml) 30 ml PO Q6 PRN PRN Reason: Indigestion / Heartburn Last Admin: 12/19/16 22:00 Dose: 30 ml Albuterol Sulfate (Albuterol 0.083% Inhal Maria Guadalupe (2.5 Mg/3 Ml) Ud) 2.5 mg IH RQ6 [facility] Last Admin: 12/21/16 13:21 Dose: Not Given Apixaban (Eliquis) 5 mg PO BID [facility] PRN Reason: Protocol Last Admin: 12/21/16 11:00 Dose: 5 mg Aspirin (Aspirin Chewable) 81 mg PO DAILY [facility] Last Admin: 12/21/16 11:00 Dose: 81 mg Dextrose (Dextrose 50% Inj) 0 ml IVP STAT PRN; Protocol PRN Reason: Hypoglycemia Protocol Enalapril Maleate (Vasotec) 2.5 mg PO DAILY [facility] Last Admin: 12/21/16 10:58 Dose: Not Given Furosemide (Lasix) 40 mg IVP BID [facility] Stop: 12/22/16 17:01 Last Admin: 12/21/16 10:57 Dose: Not Given Glucagon (Glucagen Diagnostic Kit) 0 mg IM STAT PRN; Protocol PRN Reason: Hypoglycemia Protocol Guaifenesin/Dextromethorphan (Robitussin Dm) 5 ml PO Q6H PRN PRN Reason: Cough Insulin Detemir (Levemir) 10 units SC HS [facility] Last Admin: 12/20/16 22:12 Dose: 10 u Insulin Human Lispro (Humalog) 0 units SC ACHS [facility] PRN Reason: Protocol Last Admin: 12/21/16 13:32 Dose: 5 u Insulin Human Lispro (Humalog) 3 units SC AC [facility] Last Admin: 12/21/16 13:32 Dose: 3 unit Levothyroxine Sodium (Synthroid) 150 mcg PO DAILY@0630 [facility] Last Admin: 12/21/16 05:53 Dose: 150 mcg Metformin HCl (Glucophage) 1,000 mg PO BIDWM [facility] Last Admin: 12/21/16 11:01 Dose: 1,000 mg Metolazone (Zaroxolyn) 5 mg PO DAILY [facility] Last Admin: 12/21/16 10:59 Dose: 5 mg Metoprolol Tartrate (Lopressor) 25 mg PO Q12 [facility] Last Admin: 12/21/16 10:58 Dose: Not Given Ondansetron HCl (Zofran Inj) 4 mg IVP Q4 PRN PRN Reason: Nausea/Vomiting Last Admin: 12/19/16 02:00 Dose: 4 mg Pantoprazole Sodium (Protonix Ec Tab) 20 mg PO DAILY [facility] Last Admin: 12/21/16 11:00 Dose: 20 mg Promethazine HCl/Codeine (Phenergan/Codeine Oral Syrup) 5 ml PO Q4 PRN PRN Reason: Cough Last Admin: 12/21/16 13:31 Dose: 5 ml Risperidone (Risperdal Oral Soln) 1 mg PO DAILY [facility] Last Admin: 12/21/16 10:59 Dose: 1 mg Simethicone (Mylicon Chew Tab) 80 mg PO QID PRN PRN Reason: Flatulence Last Admin: 12/19/16 01:22 Dose: 80 mg Sitagliptin Phosphate (Januvia) 100 mg PO DAILY [facility] Last Admin: 12/21/16 11:01 Dose: 100 mg Sucralfate (Carafate Oral Susp) 1 gm PO BID [facility] Last Admin: 12/21/16 13:31 Dose: 1 gm - Labs Labs: 12/20/16 04:00 12/20/16 04:00
[2016-12-21] MEDS: Insulin Detemir 100 Units/ml Inj SC SCH (21:58)
[2016-12-21] MEDS: guaiFENesin DM 100 mg-10 mg/5 ml UD PO PRN (22:01)
[2016-12-22] MEDS: Albuterol 0.083% Inhal Sol (2.5 mg/3 mL) UD IH SCH ×3 (01:06→19:03)
[2016-12-22] MEDS: Levothyroxine 150 MCG TAB PO SCH (06:45)
[2016-12-22] MEDS: Sucralfate 1 gm/10 ml Oral Susp UD PO SCH ×3 (06:53→16:58)
[2016-12-22] MEDS: metOLazone 5 MG TAB PO SCH (10:43)
[2016-12-22] MEDS: Pantoprazole 20 mg EC Tab PO SCH (10:43)
[2016-12-22] MEDS: Insulin Lispro (humaLOG) 100 Units/ml Inj SC SCH ×8 (10:44→21:43)
[2016-12-22] MEDS: Promethazine/Cod 6.25mg-10mg/5ml Syr UD PO PRN ×2 (12:13→21:36)
--- NOTE | 2016-12-22 13:31 | CP.PCM.PN ---
Subjective - Date & Time of Evaluation Date of Evaluation: 12/22/16 Time of Evaluation: 11:30 - Subjective Subjective: No acute distress noted Pt states that sob is improving Objective - Vital Signs/Intake and Output Vital Signs (last 24 hours): Temp Pulse Resp BP Pulse Ox 97.5 F L 99 H 18 96/63 L 95 12/22/16 12:44 12/22/16 12:44 12/22/16 12:44 12/22/16 12:44 12/22/16 12:44 Intake and Output: 12/22/16 12/22/16 06:59 18:59 Intake Total 120 Output Total 300 Balance -180 - Medications Medications: Current Medications Al Hydrox/Mg Hydrox/Simethicone (Maalox Plus 30 Ml) 30 ml PO Q6 PRN PRN Reason: Indigestion / Heartburn Last Admin: 12/19/16 22:00 Dose: 30 ml Albuterol Sulfate (Albuterol 0.083% Inhal Maria Guadalupe (2.5 Mg/3 Ml) Ud) 2.5 mg IH RQ6 [facility] Last Admin: 12/22/16 09:13 Dose: Not Given Apixaban (Eliquis) 5 mg PO BID [facility] PRN Reason: Protocol Last Admin: 12/22/16 10:45 Dose: Not Given Aspirin (Aspirin Chewable) 81 mg PO DAILY [facility] Last Admin: 12/22/16 10:45 Dose: Not Given Dextrose (Dextrose 50% Inj) 0 ml IVP STAT PRN; Protocol PRN Reason: Hypoglycemia Protocol Enalapril Maleate (Vasotec) 2.5 mg PO DAILY [facility] Last Admin: 12/22/16 10:43 Dose: Not Given Furosemide (Lasix) 40 mg IVP BID [facility] Stop: 12/22/16 17:01 Last Admin: 12/22/16 10:44 Dose: Not Given Glucagon (Glucagen Diagnostic Kit) 0 mg IM STAT PRN; Protocol PRN Reason: Hypoglycemia Protocol Guaifenesin/Dextromethorphan (Robitussin Dm) 5 ml PO Q6H PRN PRN Reason: Cough Last Admin: 12/21/16 22:01 Dose: 5 ml Insulin Detemir (Levemir) 10 units SC HS [facility] Last Admin: 12/21/16 21:58 Dose: 10 u Insulin Human Lispro (Humalog) 0 units SC ACHS [facility] PRN Reason: Protocol Last Admin: 12/22/16 12:11 Dose: 3 u Insulin Human Lispro (Humalog) 3 units SC AC [facility] Last Admin: 12/22/16 12:10 Dose: 3 unit Levothyroxine Sodium (Synthroid) 150 mcg PO DAILY@0630 [facility] Last Admin: 12/22/16 06:45 Dose: 150 mcg Metformin HCl (Glucophage) 1,000 mg PO BIDWM [facility] Last Admin: 12/22/16 10:45 Dose: Not Given Metolazone (Zaroxolyn) 5 mg PO DAILY [facility] Last Admin: 12/22/16 10:43 Dose: Not Given Metoprolol Tartrate (Lopressor) 25 mg PO Q12 [facility] Last Admin: 12/22/16 10:43 Dose: Not Given Ondansetron HCl (Zofran Inj) 4 mg IVP Q4 PRN PRN Reason: Nausea/Vomiting Last Admin: 12/19/16 02:00 Dose: 4 mg Pantoprazole Sodium (Protonix Ec Tab) 20 mg PO DAILY [facility] Last Admin: 12/22/16 10:43 Dose: Not Given Promethazine HCl/Codeine (Phenergan/Codeine Oral Syrup) 5 ml PO Q4 PRN PRN Reason: Cough Last Admin: 12/22/16 12:13 Dose: 5 ml Risperidone (Risperdal Oral Soln) 1 mg PO DAILY [facility] Last Admin: 12/22/16 10:43 Dose: Not Given Simethicone (Mylicon Chew Tab) 80 mg PO QID PRN PRN Reason: Flatulence Last Admin: 12/19/16 01:22 Dose: 80 mg Sitagliptin Phosphate (Januvia) 100 mg PO DAILY [facility] Last Admin: 12/22/16 12:06 Dose: Not Given Sucralfate (Carafate Oral Susp) 1 gm PO BID [facility] Last Admin: 12/22/16 10:45 Dose: Not Given - Labs Labs: 12/20/16 04:00 12/20/16 04:00 - Respiratory Exam Additional comments: Lungs clear - Cardiovascular Exam Cardiovascular Exam: REGULAR RHYTHM - Extremities Exam Additional comments: Extrems. remain edematous Assessment and Plan - Assessment and Plan (Free Text) Assessment: No improvement in serum sodium yet ON LASIX & zAROXOLYN CHF Renal function remains stable Lliver enzymes are improving Plan: Continue to monitor serum sodium level Will consider Tolvaptan once liver enzymes are further improved
--- NOTE | 2016-12-22 15:05 | CP.PCM.PN ---
Subjective - Date & Time of Evaluation Date of Evaluation: 12/22/16 Time of Evaluation: 14:00 - Subjective Subjective: F/U Respiratory Distress. Pt c/o of cough with scanty whitish phlegms, no SOB, no JUDD, at times epigastric pain, refusing stomach medication in the morning. Objective - Vital Signs/Intake and Output Vital Signs (last 24 hours): Temp Pulse Resp BP Pulse Ox 97.5 F L 99 H 18 96/63 L 95 12/22/16 12:44 12/22/16 12:44 12/22/16 12:44 12/22/16 12:44 12/22/16 12:44 Intake and Output: 12/22/16 12/22/16 06:59 18:59 Intake Total 120 Output Total 300 Balance -180 - Medications Medications: Current Medications Al Hydrox/Mg Hydrox/Simethicone (Maalox Plus 30 Ml) 30 ml PO Q6 PRN PRN Reason: Indigestion / Heartburn Last Admin: 12/19/16 22:00 Dose: 30 ml Albuterol Sulfate (Albuterol 0.083% Inhal Maria Guadalupe (2.5 Mg/3 Ml) Ud) 2.5 mg IH RQ6 [facility] Last Admin: 12/22/16 09:13 Dose: Not Given Apixaban (Eliquis) 5 mg PO BID [facility] PRN Reason: Protocol Last Admin: 12/22/16 10:45 Dose: Not Given Aspirin (Aspirin Chewable) 81 mg PO DAILY [facility] Last Admin: 12/22/16 10:45 Dose: Not Given Dextrose (Dextrose 50% Inj) 0 ml IVP STAT PRN; Protocol PRN Reason: Hypoglycemia Protocol Enalapril Maleate (Vasotec) 2.5 mg PO DAILY [facility] Last Admin: 12/22/16 10:43 Dose: Not Given Furosemide (Lasix) 40 mg IVP BID [facility] Stop: 12/22/16 17:01 Last Admin: 12/22/16 10:44 Dose: Not Given Glucagon (Glucagen Diagnostic Kit) 0 mg IM STAT PRN; Protocol PRN Reason: Hypoglycemia Protocol Guaifenesin/Dextromethorphan (Robitussin Dm) 5 ml PO Q6H PRN PRN Reason: Cough Last Admin: 12/21/16 22:01 Dose: 5 ml Insulin Detemir (Levemir) 10 units SC [facility] Last Admin: 12/21/16 21:58 Dose: 10 u Insulin Human Lispro (Humalog) 0 units SC ACHS [facility] PRN Reason: Protocol Last Admin: 12/22/16 12:11 Dose: 3 u Insulin Human Lispro (Humalog) 3 units SC AC [facility] Last Admin: 12/22/16 12:10 Dose: 3 unit Levothyroxine Sodium (Synthroid) 150 mcg PO DAILY@0630 [facility] Last Admin: 12/22/16 06:45 Dose: 150 mcg Metformin HCl (Glucophage) 1,000 mg PO BIDWM [facility] Last Admin: 12/22/16 10:45 Dose: Not Given Metolazone (Zaroxolyn) 5 mg PO DAILY [facility] Last Admin: 12/22/16 10:43 Dose: Not Given Metoprolol Tartrate (Lopressor) 25 mg PO Q12 [facility] Last Admin: 12/22/16 10:43 Dose: Not Given Ondansetron HCl (Zofran Inj) 4 mg IVP Q4 PRN PRN Reason: Nausea/Vomiting Last Admin: 12/19/16 02:00 Dose: 4 mg Pantoprazole Sodium (Protonix Ec Tab) 20 mg PO DAILY [facility] Last Admin: 12/22/16 10:43 Dose: Not Given Promethazine HCl/Codeine (Phenergan/Codeine Oral Syrup) 5 ml PO Q4 PRN PRN Reason: Cough Last Admin: 12/22/16 12:13 Dose: 5 ml Risperidone (Risperdal Oral Soln) 1 mg PO DAILY [facility] Last Admin: 12/22/16 10:43 Dose: Not Given Simethicone (Mylicon Chew Tab) 80 mg PO QID PRN PRN Reason: Flatulence Last Admin: 12/19/16 01:22 Dose: 80 mg Sitagliptin Phosphate (Januvia) 100 mg PO DAILY [facility] Last Admin: 12/22/16 12:06 Dose: Not Given Sucralfate (Carafate Oral Susp) 1 gm PO BID [facility] Last Admin: 12/22/16 10:45 Dose: Not Given - Labs Labs: 12/20/16 04:00 12/20/16 04:00 - Constitutional Appears: No Acute Distress - Head Exam Head Exam: NORMAL INSPECTION - Eye Exam Eye Exam: PERRL - ENT Exam ENT Exam: Normal Oropharynx - Neck Exam Neck Exam: Normal Inspection - Respiratory Exam Respiratory Exam: Decreased Breath Sounds (at bases) Additional comments: Few crackles at bases - Cardiovascular Exam Cardiovascular Exam: REGULAR RHYTHM - GI/Abdominal Exam GI & Abdominal Exam: Soft, Normal Bowel Sounds. absent: Guarding, Rebound - Extremities Exam Additional comments: Leroy - Back Exam Back Exam: NORMAL INSPECTION - Neurological Exam Neurological Exam: Alert, Oriented x3. absent: Motor Sensory Deficit - Psychiatric Exam Psychiatric exam: Normal Mood - Skin Skin Exam: Warm Assessment and Plan (1) Respiratory insufficiency Status: Acute (2) COPD (chronic obstructive pulmonary disease) Status: Acute (3) Bilateral pleural effusion Status: Acute (4) Atelectasis of both lungs Status: Acute (5) CHF (congestive heart failure) Status: Chronic (6) Sepsis Status: Acute - Assessment and Plan (Free Text) Plan: CXR yesterday shows: Congestive changes, b/l lower lobe infiltrate/atelectasis and effusions. Continue Atrovent, Phenergan with Co/Robitussin DM.
[2016-12-22] MEDS: guaiFENesin DM 100 mg-10 mg/5 ml UD PO PRN (16:53)
[2016-12-22] MEDS: Insulin Detemir 100 Units/ml Inj SC SCH (21:44)
[2016-12-23] MEDS: Albuterol 0.083% Inhal Sol (2.5 mg/3 mL) UD IH SCH ×4 (01:00→19:23)
[2016-12-23] MEDS: Levothyroxine 150 MCG TAB PO SCH (06:45)
[2016-12-23] MEDS: Insulin Lispro (humaLOG) 100 Units/ml Inj SC SCH ×10 (06:45→22:29)
[2016-12-23] MEDS: Pantoprazole 20 mg EC Tab PO SCH (08:22)
[2016-12-23] MEDS: metOLazone 5 MG TAB PO SCH (08:23)
[2016-12-23] MEDS: Sucralfate 1 gm/10 ml Oral Susp UD PO SCH ×2 (08:31→16:25)
[2016-12-23] MEDS: guaiFENesin DM 100 mg-10 mg/5 ml UD PO PRN ×2 (08:34→22:38)
--- NOTE | 2016-12-23 08:51 | CP.PCM.PN ---
Subjective - Date & Time of Evaluation Date of Evaluation: 12/22/16 Time of Evaluation: 09:40 - Subjective Subjective: Patient remains stable Still with elevated AST ALT No abdominal pains Has leg edema Objective - Vital Signs/Intake and Output Vital Signs (last 24 hours): Temp Pulse Resp BP Pulse Ox 97.6 F 109 H 18 105/71 95 12/23/16 07:58 12/23/16 08:23 12/23/16 07:58 12/23/16 08:23 12/23/16 07:58 Intake and Output: 12/23/16 12/23/16 06:59 18:59 Intake Total 960 Balance 960 - Medications Medications: Current Medications Al Hydrox/Mg Hydrox/Simethicone (Maalox Plus 30 Ml) 30 ml PO Q6 PRN PRN Reason: Indigestion / Heartburn Last Admin: 12/19/16 22:00 Dose: 30 ml Albuterol Sulfate (Albuterol 0.083% Inhal Maria Guadalupe (2.5 Mg/3 Ml) Ud) 2.5 mg IH RQ6 [facility] Last Admin: 12/23/16 08:03 Dose: Not Given Apixaban (Eliquis) 5 mg PO BID [facility] PRN Reason: Protocol Last Admin: 12/23/16 08:24 Dose: 5 mg Aspirin (Aspirin Chewable) 81 mg PO DAILY [facility] Last Admin: 12/23/16 08:22 Dose: 81 mg Dextrose (Dextrose 50% Inj) 0 ml IVP STAT PRN; Protocol PRN Reason: Hypoglycemia Protocol Enalapril Maleate (Vasotec) 2.5 mg PO DAILY [facility] Last Admin: 12/23/16 08:25 Dose: 2.5 mg Glucagon (Glucagen Diagnostic Kit) 0 mg IM STAT PRN; Protocol PRN Reason: Hypoglycemia Protocol Guaifenesin/Dextromethorphan (Robitussin Dm) 5 ml PO Q6H PRN PRN Reason: Cough Last Admin: 12/23/16 08:34 Dose: 5 ml Insulin Detemir (Levemir) 10 units SC HS [facility] Last Admin: 12/22/16 21:44 Dose: 10 u Insulin Human Lispro (Humalog) 0 units SC ACHS [facility] PRN Reason: Protocol Last Admin: 12/23/16 06:46 Dose: 1 u Insulin Human Lispro (Humalog) 3 units SC AC [facility] Last Admin: 12/23/16 08:24 Dose: 3 unit Levothyroxine Sodium (Synthroid) 150 mcg PO DAILY@0630 [facility] Last Admin: 12/23/16 06:45 Dose: 150 mcg Metformin HCl (Glucophage) 1,000 mg PO BIDWM [facility] Last Admin: 12/23/16 08:24 Dose: 1,000 mg Metolazone (Zaroxolyn) 5 mg PO DAILY [facility] Last Admin: 12/23/16 08:23 Dose: 5 mg Metoprolol Tartrate (Lopressor) 25 mg PO Q12 [facility] Last Admin: 12/23/16 08:23 Dose: 25 mg Ondansetron HCl (Zofran Inj) 4 mg IVP Q4 PRN PRN Reason: Nausea/Vomiting Last Admin: 12/19/16 02:00 Dose: 4 mg Pantoprazole Sodium (Protonix Ec Tab) 20 mg PO DAILY [facility] Last Admin: 12/23/16 08:22 Dose: 20 mg Promethazine HCl/Codeine (Phenergan/Codeine Oral Syrup) 5 ml PO Q4 PRN PRN Reason: Cough Last Admin: 12/22/16 21:36 Dose: 5 ml Risperidone (Risperdal Oral Soln) 1 mg PO DAILY [facility] Last Admin: 12/23/16 08:29 Dose: Not Given Simethicone (Mylicon Chew Tab) 80 mg PO QID PRN PRN Reason: Flatulence Last Admin: 12/19/16 01:22 Dose: 80 mg Sitagliptin Phosphate (Januvia) 100 mg PO DAILY [facility] Last Admin: 12/23/16 08:25 Dose: 100 mg Sucralfate (Carafate Oral Susp) 1 gm PO BID [facility] Last Admin: 12/23/16 08:31 Dose: 1 gm - Labs Labs: 12/20/16 04:00 12/20/16 04:00
[2016-12-23 13:49] LABS: HEMATOCRIT 34.1 % (34.0-47.0); MEAN CORPUSCULAR HEMOGLOBIN 24.9 pg (27.0-31.0); MEAN CORPUSCULAR HGB CONC 32.6 g/dL (33.0-37.0); RED CELL DISTRIBUTION WIDTH 20.9 % (11.5-14.5); WHITE BLOOD COUNT 10.2 K/uL (4.8-10.8)
[2016-12-23 13:50] LABS: ALB/GLOB RATIO 1.2 (1.0-2.1); ALKALINE PHOSPHATASE 461 U/L (38-126); ALT/SGPT 191 U/L (9-52); AST/SGOT 97 U/L (14-36); BILIRUBIN,TOTAL 0.8 mg/dl (0.2-1.3); BLOOD UREA NITROGEN 25 mg/dl (7-17); CALCIUM 8.9 mg/dL (8.4-10.2); CARBON DIOXIDE 33 mmol/L (22-30); CHLORIDE 79 mmol/L (98-107); GFR AFRICAN-AMERICAN > 60; GLUCOSE,RANDOM 160 mg/dL (65-105); POTASSIUM 2.6 MMOL/L (3.6-5.0); SODIUM 123 mmol/l (132-148); TOTAL PROTEIN 6.2 G/DL (6.3-8.2)
[2016-12-23 13:56] LABS: MEAN CELL VOLUME 76.3 fl (81.0-99.0)
--- NOTE | 2016-12-23 14:20 | CP.PCM.PN ---
Subjective - Date & Time of Evaluation Date of Evaluation: 12/23/16 Time of Evaluation: 12:00 - Subjective Subjective: No c/o SOB Objective - Vital Signs/Intake and Output Vital Signs (last 24 hours): Temp Pulse Resp BP Pulse Ox 97.4 F L 117 H 18 104/73 93 L 12/23/16 13:00 12/23/16 13:00 12/23/16 13:00 12/23/16 13:00 12/23/16 13:00 Intake and Output: 12/23/16 12/23/16 06:59 18:59 Intake Total 960 60 Balance 960 60 - Medications Medications: Current Medications Al Hydrox/Mg Hydrox/Simethicone (Maalox Plus 30 Ml) 30 ml PO Q6 PRN PRN Reason: Indigestion / Heartburn Last Admin: 12/19/16 22:00 Dose: 30 ml Albuterol Sulfate (Albuterol 0.083% Inhal Maria Guadalupe (2.5 Mg/3 Ml) Ud) 2.5 mg IH RQ6 [facility] Last Admin: 12/23/16 13:14 Dose: Not Given Apixaban (Eliquis) 5 mg PO BID [facility] PRN Reason: Protocol Last Admin: 12/23/16 08:24 Dose: 5 mg Aspirin (Aspirin Chewable) 81 mg PO DAILY [facility] Last Admin: 12/23/16 08:22 Dose: 81 mg Dextrose (Dextrose 50% Inj) 0 ml IVP STAT PRN; Protocol PRN Reason: Hypoglycemia Protocol Enalapril Maleate (Vasotec) 2.5 mg PO DAILY [facility] Last Admin: 12/23/16 08:25 Dose: 2.5 mg Glucagon (Glucagen Diagnostic Kit) 0 mg IM STAT PRN; Protocol PRN Reason: Hypoglycemia Protocol Guaifenesin/Dextromethorphan (Robitussin Dm) 5 ml PO Q6H PRN PRN Reason: Cough Last Admin: 12/23/16 08:34 Dose: 5 ml Insulin Detemir (Levemir) 10 units SC HS [facility] Last Admin: 12/22/16 21:44 Dose: 10 u Insulin Human Lispro (Humalog) 0 units SC ACHS [facility] PRN Reason: Protocol Last Admin: 12/23/16 12:41 Dose: 1 u Insulin Human Lispro (Humalog) 3 units SC AC [facility] Last Admin: 12/23/16 12:42 Dose: 3 unit Levothyroxine Sodium (Synthroid) 150 mcg PO DAILY@0630 [facility] Last Admin: 12/23/16 06:45 Dose: 150 mcg Metformin HCl (Glucophage) 1,000 mg PO BIDWM [facility] Last Admin: 12/23/16 08:24 Dose: 1,000 mg Metolazone (Zaroxolyn) 5 mg PO DAILY [facility] Last Admin: 12/23/16 08:23 Dose: 5 mg Metoprolol Tartrate (Lopressor) 25 mg PO Q12 [facility] Last Admin: 12/23/16 08:23 Dose: 25 mg Ondansetron HCl (Zofran Inj) 4 mg IVP Q4 PRN PRN Reason: Nausea/Vomiting Last Admin: 12/19/16 02:00 Dose: 4 mg Pantoprazole Sodium (Protonix Ec Tab) 20 mg PO DAILY [facility] Last Admin: 12/23/16 08:22 Dose: 20 mg Promethazine HCl/Codeine (Phenergan/Codeine Oral Syrup) 5 ml PO Q4 PRN PRN Reason: Cough Last Admin: 12/22/16 21:36 Dose: 5 ml Risperidone (Risperdal Oral Soln) 1 mg PO DAILY [facility] Last Admin: 12/23/16 08:29 Dose: Not Given Simethicone (Mylicon Chew Tab) 80 mg PO QID PRN PRN Reason: Flatulence Last Admin: 12/19/16 01:22 Dose: 80 mg Sitagliptin Phosphate (Januvia) 100 mg PO DAILY [facility] Last Admin: 12/23/16 08:25 Dose: 100 mg Sucralfate (Carafate Oral Susp) 1 gm PO BID [facility] Last Admin: 12/23/16 08:31 Dose: 1 gm - Labs Labs: 12/23/16 13:00 12/23/16 13:00 - Respiratory Exam Additional comments: Lungs clear - Cardiovascular Exam Cardiovascular Exam: REGULAR RHYTHM (reg) - Extremities Exam Additional comments: Extrem remain edematous but some decrease in edema noted today Assessment and Plan - Assessment and Plan (Free Text) Assessment: Hyponatremia Sodium is better today CHF/B/L pleural effusions Hypokalemia sec to diuretics Will need more supplementation while on Metolozone
[2016-12-23] MEDS: Potassium Chloride 20 mEq ER Tab PO SCH (15:20)
[2016-12-23] MEDS: Potassium CL 10mEq/100ml 100 ML IVPB SCH ×2 (15:21→15:22)
[2016-12-23] MEDS: Insulin Detemir 100 Units/ml Inj SC SCH (22:30)
[2016-12-24] MEDS: Albuterol 0.083% Inhal Sol (2.5 mg/3 mL) UD IH SCH ×3 (01:16→14:05)
[2016-12-24 06:36] LABS: HEMATOCRIT 38.6 % (34.0-47.0); MEAN CELL VOLUME 77.5 fl (81.0-99.0); MEAN CORPUSCULAR HEMOGLOBIN 24.7 pg (27.0-31.0); MEAN CORPUSCULAR HGB CONC 31.9 g/dL (33.0-37.0); RED CELL DISTRIBUTION WIDTH 20.7 % (11.5-14.5); WHITE BLOOD COUNT 9.5 K/uL (4.8-10.8)
[2016-12-24 06:50] LABS: BLOOD UREA NITROGEN 27 mg/dl (7-17); CALCIUM 9.2 mg/dL (8.4-10.2); CARBON DIOXIDE 32 mmol/L (22-30); CHLORIDE 79 mmol/L (98-107); GFR AFRICAN-AMERICAN > 60; GLUCOSE,RANDOM 125 mg/dL (65-105); POTASSIUM 3.3 MMOL/L (3.6-5.0); SODIUM 124 mmol/l (132-148)
[2016-12-24] MEDS: Levothyroxine 150 MCG TAB PO SCH (07:00)
[2016-12-24] MEDS: Insulin Lispro (humaLOG) 100 Units/ml Inj SC SCH ×4 (07:00→13:35)
[2016-12-24] MEDS: Potassium Chloride 20 mEq ER Tab PO SCH (08:33)
[2016-12-24] MEDS: Pantoprazole 20 mg EC Tab PO SCH (08:34)
[2016-12-24 08:36] VITALS: RESP 18
[2016-12-24] MEDS: metOLazone 5 MG TAB PO SCH (08:46)
--- NOTE | 2016-12-24 10:11 | CP.PCM.PN ---
Subjective - Date & Time of Evaluation Date of Evaluation: 12/23/16 Time of Evaluation: 09:00 - Subjective Subjective: Still with a lot of leg swelling Currently on Zaroxyline. Objective - Vital Signs/Intake and Output Vital Signs (last 24 hours): Temp Pulse Resp BP Pulse Ox 97.4 F L 123 H 18 114/71 95 12/24/16 08:35 12/24/16 08:35 12/24/16 08:35 12/24/16 08:35 12/24/16 08:35 - Medications Medications: Current Medications Al Hydrox/Mg Hydrox/Simethicone (Maalox Plus 30 Ml) 30 ml PO Q6 PRN PRN Reason: Indigestion / Heartburn Last Admin: 12/19/16 22:00 Dose: 30 ml Albuterol Sulfate (Albuterol 0.083% Inhal Maria Guadalupe (2.5 Mg/3 Ml) Ud) 2.5 mg IH RQ6 [facility] Last Admin: 12/24/16 09:04 Dose: Not Given Apixaban (Eliquis) 5 mg PO BID [facility] PRN Reason: Protocol Last Admin: 12/24/16 08:32 Dose: 5 mg Aspirin (Aspirin Chewable) 81 mg PO DAILY [facility] Last Admin: 12/24/16 08:31 Dose: 81 mg Dextrose (Dextrose 50% Inj) 0 ml IVP STAT PRN; Protocol PRN Reason: Hypoglycemia Protocol Enalapril Maleate (Vasotec) 2.5 mg PO DAILY [facility] Last Admin: 12/24/16 08:46 Dose: 2.5 mg Furosemide (Lasix) 40 mg IVP DAILY [facility] Glucagon (Glucagen Diagnostic Kit) 0 mg IM STAT PRN; Protocol PRN Reason: Hypoglycemia Protocol Guaifenesin/Dextromethorphan (Robitussin Dm) 5 ml PO Q6H PRN PRN Reason: Cough Last Admin: 12/23/16 22:38 Dose: 5 ml Insulin Detemir (Levemir) 10 units SC HS [facility] Last Admin: 12/23/16 22:30 Dose: 10 u Insulin Human Lispro (Humalog) 0 units SC ACHS [facility] PRN Reason: Protocol Last Admin: 12/24/16 07:00 Dose: 1 u Insulin Human Lispro (Humalog) 3 units SC AC [facility] Last Admin: 12/24/16 08:47 Dose: 3 unit Levothyroxine Sodium (Synthroid) 150 mcg PO DAILY@0630 [facility] Last Admin: 12/24/16 07:00 Dose: 150 mcg Metformin HCl (Glucophage) 1,000 mg PO BIDWM [facility] Last Admin: 12/24/16 08:32 Dose: 1,000 mg Metolazone (Zaroxolyn) 5 mg PO DAILY [facility] Last Admin: 12/24/16 08:46 Dose: 5 mg Metoprolol Tartrate (Lopressor) 25 mg PO Q12 [facility] Last Admin: 12/24/16 08:33 Dose: 25 mg Ondansetron HCl (Zofran Inj) 4 mg IVP Q4 PRN PRN Reason: Nausea/Vomiting Last Admin: 12/24/16 03:09 Dose: 4 mg Pantoprazole Sodium (Protonix Ec Tab) 20 mg PO DAILY [facility] Last Admin: 12/24/16 08:34 Dose: 20 mg Potassium Chloride (K-Dur 20 Meq Er Tab) 20 meq PO DAILY [facility] Last Admin: 12/24/16 08:33 Dose: 20 meq Potassium Chloride (K-Dur 20 Meq Er Tab) 20 meq PO ONCE ONE Stop: 12/24/16 09:55 Promethazine HCl/Codeine (Phenergan/Codeine Oral Syrup) 5 ml PO Q4 PRN PRN Reason: Cough Last Admin: 12/22/16 21:36 Dose: 5 ml Risperidone (Risperdal Oral Soln) 1 mg PO DAILY [facility] Last Admin: 12/24/16 09:31 Dose: Not Given Simethicone (Mylicon Chew Tab) 80 mg PO QID PRN PRN Reason: Flatulence Last Admin: 12/19/16 01:22 Dose: 80 mg Sitagliptin Phosphate (Januvia) 100 mg PO DAILY [facility] Last Admin: 12/24/16 08:32 Dose: 100 mg Spironolactone (Aldactone) 12.5 mg PO DAILY [facility] Sucralfate (Carafate Oral Susp) 1 gm PO BID [facility] Last Admin: 12/23/16 16:25 Dose: 1 gm - Labs Labs: 12/24/16 05:35 12/24/16 05:35
--- NOTE | 2016-12-24 10:15 | CP.PCM.PN ---
Subjective - Date & Time of Evaluation Date of Evaluation: 12/24/16 Time of Evaluation: 10:11 - Subjective Subjective: Still with a lot of leg swelling Still tachycardic On Zaroxyline 5 mg daily Noted improvement of potassium. Objective - Vital Signs/Intake and Output Vital Signs (last 24 hours): Temp Pulse Resp BP Pulse Ox 97.4 F L 123 H 18 114/71 95 12/24/16 08:35 12/24/16 08:35 12/24/16 08:35 12/24/16 08:35 12/24/16 08:35 - Medications Medications: Current Medications Al Hydrox/Mg Hydrox/Simethicone (Maalox Plus 30 Ml) 30 ml PO Q6 PRN PRN Reason: Indigestion / Heartburn Last Admin: 12/19/16 22:00 Dose: 30 ml Albuterol Sulfate (Albuterol 0.083% Inhal Maria Guadalupe (2.5 Mg/3 Ml) Ud) 2.5 mg IH RQ6 [facility] Last Admin: 12/24/16 09:04 Dose: Not Given Apixaban (Eliquis) 5 mg PO BID [facility] PRN Reason: Protocol Last Admin: 12/24/16 08:32 Dose: 5 mg Aspirin (Aspirin Chewable) 81 mg PO DAILY [facility] Last Admin: 12/24/16 08:31 Dose: 81 mg Dextrose (Dextrose 50% Inj) 0 ml IVP STAT PRN; Protocol PRN Reason: Hypoglycemia Protocol Enalapril Maleate (Vasotec) 2.5 mg PO DAILY [facility] Last Admin: 12/24/16 08:46 Dose: 2.5 mg Furosemide (Lasix) 40 mg IVP DAILY [facility] Glucagon (Glucagen Diagnostic Kit) 0 mg IM STAT PRN; Protocol PRN Reason: Hypoglycemia Protocol Guaifenesin/Dextromethorphan (Robitussin Dm) 5 ml PO Q6H PRN PRN Reason: Cough Last Admin: 12/23/16 22:38 Dose: 5 ml Insulin Detemir (Levemir) 10 units SC HS [facility] Last Admin: 12/23/16 22:30 Dose: 10 u Insulin Human Lispro (Humalog) 0 units SC ACHS [facility] PRN Reason: Protocol Last Admin: 12/24/16 07:00 Dose: 1 u Insulin Human Lispro (Humalog) 3 units SC AC [facility] Last Admin: 12/24/16 08:47 Dose: 3 unit Levothyroxine Sodium (Synthroid) 150 mcg PO DAILY@0630 [facility] Last Admin: 12/24/16 07:00 Dose: 150 mcg Metformin HCl (Glucophage) 1,000 mg PO BIDWM [facility] Last Admin: 12/24/16 08:32 Dose: 1,000 mg Metolazone (Zaroxolyn) 5 mg PO DAILY [facility] Last Admin: 12/24/16 08:46 Dose: 5 mg Metoprolol Tartrate (Lopressor) 25 mg PO Q12 [facility] Last Admin: 12/24/16 08:33 Dose: 25 mg Ondansetron HCl (Zofran Inj) 4 mg IVP Q4 PRN PRN Reason: Nausea/Vomiting Last Admin: 12/24/16 03:09 Dose: 4 mg Pantoprazole Sodium (Protonix Ec Tab) 20 mg PO DAILY [facility] Last Admin: 12/24/16 08:34 Dose: 20 mg Potassium Chloride (K-Dur 20 Meq Er Tab) 20 meq PO DAILY [facility] Last Admin: 12/24/16 08:33 Dose: 20 meq Potassium Chloride (K-Dur 20 Meq Er Tab) 20 meq PO ONCE ONE Stop: 12/24/16 09:55 Promethazine HCl/Codeine (Phenergan/Codeine Oral Syrup) 5 ml PO Q4 PRN PRN Reason: Cough Last Admin: 12/22/16 21:36 Dose: 5 ml Risperidone (Risperdal Oral Soln) 1 mg PO DAILY [facility] Last Admin: 12/24/16 09:31 Dose: Not Given Simethicone (Mylicon Chew Tab) 80 mg PO QID PRN PRN Reason: Flatulence Last Admin: 12/19/16 01:22 Dose: 80 mg Sitagliptin Phosphate (Januvia) 100 mg PO DAILY [facility] Last Admin: 12/24/16 08:32 Dose: 100 mg Spironolactone (Aldactone) 12.5 mg PO DAILY [facility] Sucralfate (Carafate Oral Susp) 1 gm PO BID [facility] Last Admin: 12/23/16 16:25 Dose: 1 gm - Labs Labs: 12/24/16 05:35 12/24/16 05:35 - Head Exam Head Exam: NORMAL INSPECTION - Eye Exam Eye Exam: Normal appearance - ENT Exam ENT Exam: Mucous Membranes Moist - Respiratory Exam Respiratory Exam: Clear to Ausculation Bilateral - Cardiovascular Exam Cardiovascular Exam: Tachycardia, REGULAR RHYTHM - GI/Abdominal Exam GI & Abdominal Exam: Normal Bowel Sounds - Neurological Exam Neurological Exam: Awake, Oriented x3 - Psychiatric Exam Psychiatric exam: Normal Mood Assessment and Plan (1) Hyponatremia Status: Acute (2) Pleural effusion Status: Acute (3) Cardiomyopathy Status: Acute (4) CHF (congestive heart failure) Status: Chronic (5) Diabetes mellitus type 2 in nonobese Status: Chronic - Assessment and Plan (Free Text) Plan: add lasix and aldactone to current meds check labs in am.
[2016-12-24] MEDS ORDERED: Potassium Chloride 20 mEq ER Tab PO ONE (10:45)
[2016-12-24] MEDS: Sucralfate 1 gm/10 ml Oral Susp UD PO SCH (10:52)
--- NOTE | 2016-12-24 12:05 | CP.PCM.PN ---
Subjective - Date & Time of Evaluation Date of Evaluation: 12/24/16 Time of Evaluation: 11:45 - Subjective Subjective: C/o swelling od Et breast No SOB Objective - Vital Signs/Intake and Output Vital Signs (last 24 hours): Temp Pulse Resp BP Pulse Ox 97.4 F L 123 H 18 114/74 95 12/24/16 08:35 12/24/16 08:35 12/24/16 08:35 12/24/16 10:54 12/24/16 08:35 - Medications Medications: Current Medications Al Hydrox/Mg Hydrox/Simethicone (Maalox Plus 30 Ml) 30 ml PO Q6 PRN PRN Reason: Indigestion / Heartburn Last Admin: 12/19/16 22:00 Dose: 30 ml Albuterol Sulfate (Albuterol 0.083% Inhal [facility] (2.5 Mg/3 Ml) Ud) 2.5 mg IH RQ6 [facility] Last Admin: 12/24/16 09:04 Dose: Not Given Apixaban (Eliquis) 5 mg PO BID [facility] PRN Reason: Protocol Last Admin: 12/24/16 08:32 Dose: 5 mg Aspirin (Aspirin Chewable) 81 mg PO DAILY [facility] Last Admin: 12/24/16 08:31 Dose: 81 mg Dextrose (Dextrose 50% Inj) 0 ml IVP STAT PRN; Protocol PRN Reason: Hypoglycemia Protocol Enalapril Maleate (Vasotec) 2.5 mg PO DAILY [facility] Last Admin: 12/24/16 08:46 Dose: 2.5 mg Furosemide (Lasix) 40 mg IVP DAILY [facility] Last Admin: 12/24/16 10:54 Dose: 40 mg Glucagon (Glucagen Diagnostic Kit) 0 mg IM STAT PRN; Protocol PRN Reason: Hypoglycemia Protocol Guaifenesin/Dextromethorphan (Robitussin Dm) 5 ml PO Q6H PRN PRN Reason: Cough Last Admin: 12/23/16 22:38 Dose: 5 ml Insulin Detemir (Levemir) 10 units SC HS [facility] Last Admin: 12/23/16 22:30 Dose: 10 u Insulin Human Lispro (Humalog) 0 units SC ACHS [facility] PRN Reason: Protocol Last Admin: 12/24/16 07:00 Dose: 1 u Insulin Human Lispro (Humalog) 3 units SC AC [facility] Last Admin: 12/24/16 08:47 Dose: 3 unit Levothyroxine Sodium (Synthroid) 150 mcg PO DAILY@0630 [facility] Last Admin: 12/24/16 07:00 Dose: 150 mcg Metformin HCl (Glucophage) 1,000 mg PO BIDWM [facility] Last Admin: 12/24/16 08:32 Dose: 1,000 mg Metolazone (Zaroxolyn) 5 mg PO DAILY [facility] Last Admin: 12/24/16 08:46 Dose: 5 mg Metoprolol Tartrate (Lopressor) 25 mg PO Q12 [facility] Last Admin: 12/24/16 08:33 Dose: 25 mg Ondansetron HCl (Zofran Inj) 4 mg IVP Q4 PRN PRN Reason: Nausea/Vomiting Last Admin: 12/24/16 03:09 Dose: 4 mg Pantoprazole Sodium (Protonix Ec Tab) 20 mg PO DAILY [facility] Last Admin: 12/24/16 08:34 Dose: 20 mg Potassium Chloride (K-Dur 20 Meq Er Tab) 20 meq PO DAILY [facility] Last Admin: 12/24/16 08:33 Dose: 20 meq Promethazine HCl/Codeine (Phenergan/Codeine Oral Syrup) 5 ml PO Q4 PRN PRN Reason: Cough Last Admin: 12/22/16 21:36 Dose: 5 ml Risperidone (Risperdal Oral Soln) 1 mg PO DAILY [facility] Last Admin: 12/24/16 09:31 Dose: Not Given Simethicone (Mylicon Chew Tab) 80 mg PO QID PRN PRN Reason: Flatulence Last Admin: 12/19/16 01:22 Dose: 80 mg Sitagliptin Phosphate (Januvia) 100 mg PO DAILY [facility] Last Admin: 12/24/16 08:32 Dose: 100 mg Spironolactone (Aldactone) 12.5 mg PO DAILY [facility] Last Admin: 12/24/16 10:53 Dose: 12.5 mg Sucralfate (Carafate Oral Susp) 1 gm PO BID [facility] Last Admin: 12/24/16 10:52 Dose: 1 gm - Labs Labs: 12/24/16 05:35 12/24/16 05:35 - Respiratory Exam Additional comments: Lungs clear - Cardiovascular Exam Cardiovascular Exam: REGULAR RHYTHM - Extremities Exam Additional comments: 3+ bipedal edema Assessment and Plan - Assessment and Plan (Free Text) Assessment: Hyponatremia. very slight improvement in serum sodium & edema persists depite increase in diuretics Will start on Tolvaptan CHF Rt breast swelling. Rt breast is swollen & feels hard Bipolar disorder Plan: Tolvaptan 15 mg is ordered for today
[2016-12-24 12:20] VITALS: TEMP 97.5; O2SAT 98
[2016-12-24] MEDS ORDERED: Tolvaptan 15 MG TAB PO ONE (13:00)
[2016-12-24 14:10] VITALS: BP 90/60; PULSE 90
--- NOTE | 2016-12-24 15:45 | CP.PCM.PN ---
Subjective - Date & Time of Evaluation Date of Evaluation: 12/24/16 Time of Evaluation: 10:30 - Subjective Subjective: . Objective - Vital Signs/Intake and Output Vital Signs (last 24 hours): Temp Pulse Resp BP Pulse Ox 97.5 F L 90 18 90/60 L 98 12/24/16 12:19 12/24/16 14:00 12/24/16 12:19 12/24/16 14:00 12/24/16 12:19 - Labs Labs: 12/24/16 05:35 12/24/16 05:35 Assessment and Plan (1) Respiratory insufficiency Status: Acute (2) COPD (chronic obstructive pulmonary disease) Status: Acute (3) Bilateral pleural effusion Status: Acute (4) Atelectasis of both lungs Status: Resolved (5) CHF (congestive heart failure) Status: Chronic (6) Sepsis Status: Acute
== END 2016-12-24 14:09 | disposition left against medical advice (07) | DRG 544 ==
LOC: H.ER 11:57 → H.ERHOLD 14:24 → H.ICU/CCU 17:11 → H.TEL 12-21 04:11
PROVIDERS: ADMIT Family Medicine; ATTEND Family Medicine
DX: I11.0 Hypertensive heart disease with heart failure (principal); J18.9 Pneumonia, unspecified organism; J96.91 Respiratory failure, unspecified with hypoxia; E11.65 Type 2 diabetes mellitus with hyperglycemia; J44.0 Chronic obstructive pulmonary disease with (acute) lower respiratory infection; E87.1 Hypo-osmolality and hyponatremia; I50.23 Acute on chronic systolic (congestive) heart failure; E03.9 Hypothyroidism, unspecified; G43.909 Migraine, unspecified, not intractable, without status migrainosus; E78.00 Pure hypercholesterolemia, unspecified; E78.5 Hyperlipidemia, unspecified; F41.9 Anxiety disorder, unspecified; Z87.891 Personal history of nicotine dependence